=== PATIENT | male | born 1955 | race American Indian/Alaskan Native ===

== ENCOUNTER 2017-03-30 20:18 | Inpatient (IN) | payer MEDICARE, OTHER ==
[~2017-03-30] VITALS: Ht 175.3 cm; Wt 132.0 kg
[~2017-03-30 20:18] MED LIST: ALLOPURINOL100 MG PO; ASPIRIN EC81 MG PO; CRESTOR10 MG PO; CRESTOR20 MG PO; CYCLOBENZAPRINE10 MG PO; DOXAZOSIN MESYLA1 MG PO; FENOFIBRATE160 MG PO; FINASTERIDE5 MG PO; FLUTICASONE PRO16 GM NS; FORTESTA60 GM TOP; GLIPIZIDE XL10 MG PO; GLIPIZIDE5 MG PO; GLUCOPHAGE1000 MG PO; JANUMET 50-1,01 EACH PO; JANUVIA100 MG PO; LANTUS SOL100 UNIT/1 SUB-Q; LIPITOR80 MG GT; LOSARTAN POTASS25 MG PO; METOPROLOL SUCC25 MG PO; NORCO 10-325 T1 EACH PO; NORCO 5-325 TA1 EACH PO; OMEGA 3 1,0001 EACH PO; PAROXETINE HCL40 MG PO; TERBINAFINE15 GM TOP; VICTOZA 2-0.6 MG/0.1 SUB-Q; VICTOZA 3-0.6 MG/0.1 SQ
[2017-03-30] MEDS ORDERED: METFORMIN HCL500 M1 PO (21:06)
--- OUTSIDE RECORDS SUMMARY | 2017-03-31 00:27 | XMS | Clinical Summary ---
Demographics + + + | Address | [address] | | | [place] [address] | + + + | Home Phone | | + + + | Preferred Language | Unknown | + + + | Marital Status | | + + + | Mu-Ism Affiliation | NON | + + + | Race | or | + + + | Ethnic Group | Not or | + + + Author + + + | Author | NON REVENUE LOCATIONS | + + + | Organization | NON REVENUE LOCATIONS | + + + | Address | Unknown | + + + | Phone | Unavailable | + + + Support +------+ +---------+ + | Name | Relationship | Address | Phone | +------+ +---------+ + ECON | Unknown | | +------+ +---------+ + Care Team Providers + +------+ + | Care Licensed Certified Orthotist Name | Role | Phone | + +------+ + PP | Unavailable | + +------+ + Source Comments FELIPE is fully live on both [facility] and [facility] Allergies No Known Allergies Current Medications + + +-------+---------+------+------+-------+ | Prescription | Sig. | Disp. | Refills | Star | End | Statu | | | | | | t | Date | s | | | | | | Date | | | + + +-------+---------+------+------+-------+ | TRANDATE 200 MG | 1.5 tabs bid | | | | | Activ | | TAB | | | | | | e | + + +-------+---------+------+------+-------+ | AVAPRO 150 MG TAB | take 1 tablet | | | | | Activ | | | (150mg) by oral | | | | | e | | | route once daily | | | | | | + + +-------+---------+------+------+-------+ | PAXIL 40 MG TAB | take 1 tablet (40mg) | | | | | Activ | | | by oral route once | | | | | e | | | daily | | | | | | + + +-------+---------+------+------+-------+ | CLARITIN 10 MG TAB | take 1 tablet (10mg) | | | | | Activ | | | by oral route once | | | | | e | | | daily | | | | | | + + +-------+---------+------+------+-------+ Active Problems + + + | Problem | Noted Date | + + + | Carpal tunnel syndrome | 12/31/2005 | + + + Social History + +-------+ +--------+------+ | Tobacco Use | Types | Packs/Day | Years | Date | | | | | Used | | + +-------+ +--------+------+ | Never Assessed | | | | | + +-------+ +--------+------+ + + + | Sex Assigned at | Date Recorded | | | | + + + | Not on file | | + + + Last Filed Vital Signs + + + + | Vital Sign | Reading | Time Taken | + + + + | Blood Pressure | 140/88 | 11/08/2005 9:59 AM PDT | + + + + | Pulse | 81 | 11/08/2005 9:59 AM PDT | + + + + | Temperature | - | - | + + + + | Respiratory Rate | 19 | 11/08/2005 9:59 AM PDT | + + + + | Oxygen Saturation | - | - | + + + + | Inhaled Oxygen | - | - | | Concentration | | | + + + + | Weight | 125 kg (275 lb 9.2 | 11/08/2005 9:59 AM PDT | | | oz) | | + + + + | Height | 175.3 cm (5' 9") | 11/08/2005 9:59 AM PDT | + + + + | Body Mass Index | 40.7 | 11/08/2005 9:59 AM PDT | + + + + Plan of Treatment + + + + + | Health Maintenance | Due Date | Last Done | Comments | + + + + + | INFLUENZA VACCINE | | | | | (FLU SHOT) | 7 | | | + + + + + Results Not on filefrom Last 3 Months
--- NOTE | 2017-03-31 21:46 | EKG ---
[facility] [address] [facility] [place] [address] Signed Sinus tachycardia Left axis deviation Pulmonary disease pattern Abnormal ECG No previous ECGs available Confirmed by LUISANA GARCIA MD ([id number]) on 03/31/2017 9:46:41 PM Electronically Signed By: LUISANA GARCIA MD 03/31/17 2146 PATIENT NAME: REGAN ENCARNACION Electrocardiogram DATE OF : 51 PHYSICIAN: LUISANA GARCIA MD REPORT #: [id number] REPORT IS CONFIDENTIAL AND NOT TO BE RELEASED WITHOUT AUTHORIZATION
[2017-04-01] MEDS ORDERED: CEFPODOXIME PR200 MG PO (23:11)
[2017-04-01] MEDS ORDERED: FLUCONAZOLE200 MG PO (23:11)
== END 2017-04-02 11:15 | disposition home or self-care (01) | DRG 872 ==
LOC: ED 20:18 → CCU 23:09 → MS 03-31 11:00
PROVIDERS: ADMIT Internal Medicine
DX: A41.9 Sepsis, unspecified organism (principal); N39.0 Urinary tract infection, site not specified; E87.2 Acidosis; E11.9 Type 2 diabetes mellitus without complications; N40.0 Benign prostatic hyperplasia without lower urinary tract symptoms; E79.0 Hyperuricemia without signs of inflammatory arthritis and tophaceous disease; F39 Unspecified mood [affective] disorder; Z79.82 Long term (current) use of aspirin; Z79.84 Long term (current) use of oral hypoglycemic drugs; E66.9 Obesity, unspecified; Z95.5 Presence of coronary angioplasty implant and graft; Z90.49 Acquired absence of other specified parts of digestive tract
CPT/HCPCS: 36415; 71010; 76770; 80048; 80053; 81001; 83605; 83735; 84100; 85025; 87040; 87077; 87088; 87106; 87186; 87502; 93005; 93010; 96361; 96374; 99285; J0696; J1650; J3475; J3480; J7030

== ENCOUNTER 2018-05-22 16:57 | Emergency (ER) | payer OTHER ==
[~2018-05-22] VITALS: Ht 175.3 cm; Wt 132.0 kg
[~2018-05-22 16:57] MED LIST changes: +CEFPODOXIME PR200 MG PO; +FLUCONAZOLE200 MG PO; +METFORMIN HCL500 M1 PO
[2018-05-22] MEDS ORDERED: CRESTOR20 MG PO (17:10)
[2018-05-22] MEDS ORDERED: FLOMAX0.4 MG PO (20:04)
[2018-05-22] MEDS ORDERED: NORCO 5-325 TA1 EACH PO (20:04)
[2018-05-22] MEDS ORDERED: ONDANSETRON ODT8 MG PO (20:04)
== END 2018-05-22 20:24 | disposition home or self-care (01) ==
LOC: ED 16:57
DX: N13.2 Hydronephrosis with renal and ureteral calculous obstruction (principal); E11.9 Type 2 diabetes mellitus without complications; E66.9 Obesity, unspecified; I10 Essential (primary) hypertension; F32.9 Major depressive disorder, single episode, unspecified; Z85.038 Personal history of other malignant neoplasm of large intestine; Z91.038 Other insect allergy status; Z79.4 Long term (current) use of insulin; Z79.82 Long term (current) use of aspirin; Z79.899 Other long term (current) drug therapy
CPT/HCPCS: 74177; 80053; 81001; 83690; 85025; 96361; 96374; 96375; 99284-25; J1170; J1885; J2405; J7030; Q9967

== ENCOUNTER 2018-05-27 14:55 | Day surgery (SDC) | payer OTHER ==
[~2018-05-27] VITALS: Ht 175.3 cm; Wt 133.4 kg
[~2018-05-27 14:55] MED LIST changes: +FLOMAX0.4 MG PO; +ONDANSETRON ODT8 MG PO
--- NOTE | 2018-05-27 19:49 | NUR ---
05/27/181948 Radha Garvin 1924: PT ARRIVES TO THE PACU MOANING AND FLAILING HIS ARMS AND LEGS. HE DOES NOT STAY STILL LONG ENOUGH TO GET A BP. HE KEEPS MOTIONING TO HIS STOMACH/CHEST AREA, NOT ABLE TO COMMUNICATE TO NURSING STAFF OR CHRIS PRESCOTT WHAT IS WRONG. PT IS ABLE TO BARELY MUTTER THAT HE IS NAUSEOUS AND DIZZY. HE IS GIVEN 12.5MG OF PHENEGRAN BY GEOFFREY CADENA. CHRIS PRESCOTT ASKS FOR 2 DUONEBS TO BE GIVEN WELL. PT'S BLOOD SUGAR IS 158 POST OP. HAY 1937: CHRIS PRESCOTT OBTAINS A MANUAL BP, BECAUSE PT IS STILL FLAILING HIS ARMS AND LEGS AND WON'T STAY STILL LONG ENOUGH FOR THE MONITOR TO TAKE HIS BP. HE IS STARTED ON DUONEBS. HAY 1944: PT IS STARTING TO C/O HIS FEET HURTING. HE IS STILL FLAILING HIS ARMS AND LEGS OCCASIONALLY. PT'S HEART RATE HAS REMAINED TACHY SINCE ENTERING PACU IN THE 120'S-130'S.
--- NOTE | 2018-05-27 20:55 | NUR ---
PATIENT ARRIVED FROM PACU. REPORT GIVEN BY SURINDER HARVEY FROM PACU. PATIENT TALKING AND ORIENTED AND TAKING ICE CHIPS. FAHAD AT BEDSIDE.
--- NOTE | 2018-05-27 21:33 | NUR ---
PATIENT ON 2 L/NC A+0. TOLERATING ICE CHIPS AND JELLO WITH NO DIFFICULTIES AND NO NAUSEA. SOME BURNING WITH URINATION AND IT IS REDDISH EXPECTED. FAHAD IS AT BEDSIDE.
--- NOTE | 2018-05-27 22:52 | NUR ---
VITALS COMPLETED, ASSISTED PT UP TO BATHROOM, PAINFUL URINATION, WHICH WAS TO BE EXPECTED. ATE SANDWICH, DRANK WATER HAS VOIDED X 2. PLAN TO DC HOME
--- NOTE | 2018-05-27 23:23 | EKG ---
[facility] [address] [facility] [place] [address] Signed Sinus tachycardia Otherwise normal ECG No previous ECGs available Confirmed by LUISANA GARCIA MD ([id number]) on 05/27/2018 11:23:20 PM Electronically Signed By: LUISANA GARCIA MD 05/27/18 2323 PATIENT NAME: REGAN ENCARNACION Electrocardiogram DATE OF : 51 PHYSICIAN: LUISANA GARCIA MD REPORT #: [id number] REPORT IS CONFIDENTIAL AND NOT TO BE RELEASED WITHOUT AUTHORIZATION
--- NOTE | 2018-06-02 09:02 | OR ---
[facility] [address] [place], [place] [address] Signed DATE OF OPERATION: 05/27/2018 SURGEON: Mckay Sarmiento MD PREOPERATIVE DIAGNOSES: 1. Multiple obstructing right ureteral calculi with associated obstruction. 2. A 12-mm indeterminate right adrenal mass. POSTOPERATIVE DIAGNOSES: 1. Multiple obstructing right ureteral calculi with associated obstruction. 2. A 12-mm indeterminate right adrenal mass. PROCEDURES PERFORMED: 1. Diagnostic cystoscopy with right retrograde pyelogram. 2. Semi-rigid distal ureteroscopy with ureteral stone extraction. 3. Flexible nephroscopy with laser lithotripsy and basket extraction of stones. 4. Insertion of indwelling right ureteral stent. ANESTHESIA: General. ESTIMATED BLOOD LOSS: Minimal. COMPLICATIONS: None. SPECIMENS: Multiple fragments of right ureteral calculi sent to the lab for stone analysis. DRAINS: A 6 x 26 cm indwelling contour double-J ureteral stent placed into the right ureter. INDICATIONS FOR PROCEDURE: Mr. Encarnacion is a very pleasant 63-year-old gentleman with no previous history of nephrolithiasis, who presented to my clinic yesterday for consultation after being seen in [facility] Department around four days prior. He had presented with 1-week history of progressively worsening right flank pain along with nausea. He denied any fevers, chills, or vomiting. He underwent a CT scan in the emergency department, which revealed a collection of stones located at the right ureterovesical Electronically Signed By: MCKAY SARMIENTO MD 06/02/18 0902 PATIENT NAME: REGAN ENCARNACION OPERATIVE REPORT DATE OF : 51 REPORT #: [id number] PHYSICIAN: MCKAY SARMIENTO MD PCP: BRANDON RUSSELL REPORT IS CONFIDENTIAL AND NOT TO BE RELEASED WITHOUT AUTHORIZATION [facility] [address] [place], [place] [address] Signed junction, the largest of the two stones measured [address] scan also revealed a 10 mm right ureteropelvic junction calculus, also obstructing in nature. The patient was sent home from the emergency department with pain control and daily Flomax. He presented to my clinic yesterday requesting surgical extraction. Of note, his CT scan at that time also revealed a 12-mm indeterminate adrenal lesion on the right adrenal gland. Given his history of colon cancer, he will likely require additional imaging in approximately six months or so. OPERATIVE FINDINGS: 1. On cystoscopy, there was no evidence of any suspicious masses, lesions, or stones. Bilateral ureteral orifices are in their normal anatomic location. There is a fragment of stone that appears to be from the right ureteral orifice. 2. Right retrograde pyelogram was performed, which revealed an approximately 4 mm stone present in the distal right ureter. This stone was extracted in toto using a Zero Tip basket using a semi-rigid ureteroscopy. 3. Right retrograde pyelogram revealed mild blunting of the calices; however, there was no obvious filling defect indicative of the known 10-mm stone in the right renal pelvis. 4. Flexible nephroscopy was performed, which did reveal the presence of a 10 mm stone in the right renal pelvis near the upper pole. The stone was fragmented using a 270 micron fiber and the holmium laser. These fragments were then extracted using a Zero Tip basket without difficulty from the renal pelvis and out into a specimen cup. 97% of the stone burden was successfully extracted. 5. A 6 x 26 cm double-J ureteral stent was inserted into the right ureter under direct visualization at the end of the procedure. DESCRIPTION OF PROCEDURE: After informed consent was obtained, the patient was taken back to the operating room. He was transferred from the [facility] to the operating room table, where general anesthesia was induced. He was placed in the dorsal lithotomy position and his genitalia prepped and draped in standard sterile fashion. The penis was somewhat phimotic, so his foreskin was retracted behind the glans penis. Using a 30-degree lens on a 22.5-Turkmen introducer, rigid cystoscope was inserted through his urethra into his bladder under direct visualization. Panendoscopic views of the bladder were then obtained. Please see above findings. Attention was turned to the right ureteral orifice. A cone-tipped catheter was advanced to the right ureteral orifice and a right retrograde pyelogram was performed. Please see above findings. There was a 4-mm stone seen in the distal ureter on fluoroscopy. A semi-rigid ureteroscope was advanced into the distal ureter and the 4-mm stone was identified. It was removed in toto using a Zero Tip basket and placed in a specimen cup to be evaluated for stone analysis. A Sensor wire was then inserted through the semi-rigid scope and up into the right ureter into the right renal pelvis. Adequate placement of the wire was confirmed on fluoroscopy. Over the wire, a 13/15 ureteral access sheath was placed into appropriate position. A retrograde pyelogram was Electronically Signed By: MCKAY SARMIENTO MD 06/02/18 0902 PATIENT NAME: REGAN ENCARNACION OPERATIVE REPORT DATE OF : 51 REPORT #: [id number] PHYSICIAN: MCKAY SARMIENTO MD PCP: BRANDON RUSSELL REPORT IS CONFIDENTIAL AND NOT TO BE RELEASED WITHOUT AUTHORIZATION [facility] [address] [place], [place] [address] Signed performed to confirm adequate placement of the sheath. I then advanced a flexible ureteroscope through the sheath and into the proximal ureter and right kidney. I performed a diagnostic nephroscopy and did locate the 10 mm stone. The stone was then fragmented at 8 and 0.8 settings using a 270 micron fiber with the holmium laser. The stone fragmented with moderate difficulty, suggesting that it could be a calcium oxalate monohydrate stone. Once the stone was adequately fragmented, it was removed piece by piece using a Zero Tip basket. Approximately 97% of the stone burden was successfully extracted. Once I was satisfied that majority the stone burden had been removed, the flexible ureteroscope was removed. I then inserted a 0.035 Sensor wire through the sheath and into the right renal pelvis and confirmed placement on fluoroscopy. The sheath was then removed fully intact. Over the wire, a 6 x 26 cm contour double-J ureteral stent was inserted into the right ureter under direct vision without difficulty. The wire was pulled and adequate proximal coil was seen within the right renal pelvis along with an adequate distal coil within the bladder. The patient's bladder was then drained and the cystoscope was removed. The patient's foreskin was then protracted over the glans penis to prevent paraphimosis. The procedure was then terminated. The patient tolerated the procedure well without any complication. He will now be transferred to the postanesthesia care unit in stable condition. DISPOSITION: I discussed the details of today's surgery with the patient's and answered all of her questions. I informed her that all of the stone burden has been successfully removed and that she may contact our clinic tomorrow to schedule an appointment this coming , for him to undergo cystoscopy with right ureteral stent extraction. The patient will be discharged to home later this evening once he fully awakes from general anesthetic and his pain is under adequate control. He will be sent home with [place] 7.5/325 dispense #30 as needed for pain along with Augmentin 875 mg p.o. b.i.d. for a total of 7 days. He will see me in a couple of days to undergo cystoscopy with definitive ureteral stent extraction. Mckay Sarmiento MD AR/MODL /[id number] Electronically Signed By: MCKAY SARMIENTO MD 06/02/18 0902 PATIENT NAME: REGAN ENCARNACION OPERATIVE REPORT DATE OF : 51 REPORT #: [id number] PHYSICIAN: MCKAY SARMIENTO MD PCP: BRANDON RUSSELL REPORT IS CONFIDENTIAL AND NOT TO BE RELEASED WITHOUT AUTHORIZATION [facility] [address] [place] [address] [place], [place] [address] Signed Copies: ~ Electronically Signed By: MCKAY SARMIENTO MD 06/02/18 09 PATIENT NAME: REGAN ENCARNACION OPERATIVE REPORT DATE OF : 51 REPORT #: [id number] PHYSICIAN: MCKAY SARMIENTO MD PCP: BRANDON RUSSELL REPORT IS CONFIDENTIAL AND NOT TO BE RELEASED WITHOUT AUTHORIZATION
== END 2018-05-27 23:12 | disposition home or self-care (01) ==
LOC: OPS 14:55 → DS 14:55 → OPS 17:00 → DS 17:00 → OPS 23:12
PROVIDERS: Urology
PROC: 0T768DZ Dilation of Right Ureter with Intraluminal Device, Via Natural or Artificial Opening Endoscopic (ICD-10-PCS; 2018-05-27)
PROC: BT1DYZZ Fluoroscopy of Right Kidney, Ureter and Bladder using Other Contrast (ICD-10-PCS; 2018-05-27)
PROC: 0TC08ZZ Extirpation of Matter from Right Kidney, Via Natural or Artificial Opening Endoscopic (ICD-10-PCS; principal; 2018-05-27 17:00)
PROC: 0TC68ZZ Extirpation of Matter from Right Ureter, Via Natural or Artificial Opening Endoscopic (ICD-10-PCS; 2018-05-27 17:00)
DX: N20.2 Calculus of kidney with calculus of ureter (principal); E27.8 Other specified disorders of adrenal gland; E11.9 Type 2 diabetes mellitus without complications; I25.10 Atherosclerotic heart disease of native coronary artery without angina pectoris; Z95.5 Presence of coronary angioplasty implant and graft; Z79.82 Long term (current) use of aspirin; Z79.899 Other long term (current) drug therapy; Z79.4 Long term (current) use of insulin
CPT/HCPCS: 00918; 76000; 82365; 93005; 93010; C2617; J0330; J0696; J2250; J2405; J2550; J2704; J2765; J3010; J7120

== ENCOUNTER 2019-05-02 20:19 | Emergency (ER) | payer MEDICARE, OTHER ==
[~2019-05-02] VITALS: Ht 175.3 cm; Wt 133.4 kg
--- OUTSIDE RECORDS SUMMARY | ~2019-05-02 | XMS | Encounter Summary ---
Demographics + + + | Address | [address] | | | [place] [address] | + + + | Home Phone | | + + + | Preferred Language | Unknown | + + + | Marital Status | | + + + | Mandaeism Affiliation | 1041 | + + + | Race | Unknown | + + + | Ethnic Group | Unknown | + + + Author + + + | Author | [facility] | | | and [place] | + + + | Organization | [facility] | | | and [place] | + + + | Address | Unknown | + + + | Phone | Unavailable | + + + Support + + + + + | Name | Relationship | Address | Phone | + + + + + | Shlomo Holliday | ECON | [address] | | | | | [place] | | | | | [address] | | + + + + + Care Team Providers + +------+ + | Care Charge Coordinator Name | Role | Phone | + +------+ + PCP | Unavailable | + +------+ + Encounter Details +--------+ + + + + | Date | Type | Department | Care Team | Description | +--------+ + + + + | 01/04/ | Hospital | [facility] | Ryan Hodges, | | | 2006 | Encounter | [facility] | MD [address], | | | | | CENTER [address] | [facility] [address], | | | | | [place] | [place] [address] | | | | | [address] | [phone] | | | | | [phone] | | | +--------+ + + + + Social History + +-------+ [...] on file | | + + + + + + + | Job Start Date | Occupation | Industry | + + + + | Not on file | Not on file | Not on file | + + + + + + + + | Travel History | Travel Start | Travel End | + + + + + + | No recent travel history available. | + + documented as of this encounter Plan of Treatment Not on filedocumented as of this encounter Visit Diagnoses Not on filedocumented in this encounter"
--- OUTSIDE RECORDS SUMMARY | ~2019-05-02 | XMS | Encounter Summary ---
Demographics + + + | Address | [address] | | | [place] [address] | + + + | Home Phone | | + + + | Preferred Language | Unknown | + + + | Marital Status | | + + + | Jehovah'S Witness Affiliation | NON | + + + | Race | or | + + + | Ethnic Group | Not or | + + + Author + + + | Author | [facility] | + + + | Organization | [facility] | + + + | Address | Unknown | + + + | Phone | Unavailable | + + + Support + + +---------+ + | Name | Relationship | Address | Phone | + + +---------+ + | Shlomo Holliday | ECON | Unknown | | + + +---------+ + Care Team Providers + +------+ + | Care Optomechanical Technician Name | Role | Phone | + +------+ + PCP | Unavailable | + +------+ + Encounter Details +--------+ + + + + | Date | Type | Department | Care Team | Description | +--------+ + + + + | 11/06/ | ED | [facility] | Report, Emergency | ED Consult | | 2005 | Consult-Tra | MEDICINE | Services | | | | nscribed | | | | +--------+ + + + [...]
--- OUTSIDE RECORDS SUMMARY | ~2019-05-02 | XMS | Encounter Summary ---
Demographics + + + | Address | [address] | | | [place] [address] | + + + | Home Phone | | + + + | Preferred Language | Unknown | + + + | Marital Status | | + + + | Confucianist Affiliation | 1041 | + + + | Race | Unknown | + + + | Ethnic Group | Unknown | + + + Author + + + | Author | [facility] | | | and [place] | + + + | Organization | [facility] | | | and [place] | + + + | Address | Unknown | + + + | Phone | Unavailable | + + + Support + + + + + | Name | Relationship | Address | Phone | + + + + + | Shlomo Holliday | ECON | [address] | | | | | [place] | | | | | [address] | | + + + + + Care Team Providers + +------+ + | [facility] Name | Role | Phone | + +------+ + | Manjit Patterson PCP | | + +------+ + Encounter Details +--------+ + + + + | Date | Type | Department | Care Team | Description | +--------+ + + + + | 12/30/ | Anesthesia | [facility] | Capo Salgado DO | | | 2019 | Event | [facility] | [address] | | | | | [address] | [place] [address] | | | | | [address] | [phone] | | | | | [place], [place] | | | | | | [address] | | | | | | [phone] | | | +--------+ + + + + Anesthesia Record + + + + + | Procedure Name | Responsible | Anesthesia Start | Anesthesia Stop Time | | | Anesthesiologist | Time | | + + + + + | RELEASE CARPAL | Capo Salgado DO | 12/30/18733 | 12/30/18829 | | TUNNEL (Right Wrist) | | | | + + + + + +----+---+ + + | Da | T | Event | Comment | | te | i | | | | | m | | | | | e | | | +----+---+ + + | 08 | 0 | An Checkout | Pre-use anesthesia machine/equipment checkout. | | /2 | 7 | | | | 7/ | 3 | | | | 20 | 4 | | | | 19 | | | | +----+---+ + + | | 0 | An Start | Reassessment prior to anesthesia induction/procedure. | | | 7 | | | | | 3 | | | | | 4 | | | +----+---+ + + | | 0 | Antibiotic | | | | 7 | Given | | | | 3 | | | | | 5 | | | +----+---+ + + | | 0 | An Tourn | Right arm 250 mmHg | | | 7 | Inflated | | | | 4 | | | | | 4 | | | +----+---+ + + | | 0 | Quick Note | Incision 0746 | | | 7 | | | | | 4 | | | | | 6 | | | +----+---+ + + | | 0 | | | | | 8 | | | | | 0 | | | | | 9 | | | +----+---+ + + | | 0 | An Tourn | TT = 40 min | | | 8 | Deflated | | | | 2 | | | | | 4 | | | +----+---+ + + | | 0 | Quick Note | Surgery stop | | | 8 | | | | | 2 | | | | | 6 | | | +----+---+ + + | | 0 | An Stop | Patient handed off to recovery nurse. | | | 3 | | | | | 0 | | | +----+---+ + + +------+ | Meds | +------+ + +--------+ | Name | Total | + +--------+ | ceFAZolin in dextrose (ANCEF) | 2 g | | IVPB 2 g | | + +--------+ | propofol | 330 mg | + +--------+ | mepivacaine (PF) (POLOCAINE) 2% | 15 mL | | Perineural | | + +--------+ | bupivacaine (PF) (MARCAINE) 0.5% | 30 mL | | Perineural | | + +--------+ | midazolam (VERSED) 1 mg/mL IV | 2 mg | + +--------+ | lactated ringers (LR) infusion | 100 mL | + +--------+ + + | Name | + + | O2 Flow Rate (L/Min) | + + | Insp O2 | + + | Exp N2O | + + + + | No blood administrations on file. | + + +--------+ + + + | Type | Details | Placement | Removal | +--------+ + + + | Wound | 12/30/18; 750; Incision; Right; | 12/30/18750 by | | | | hand | Patricia Marshall, | | | | | RN | | +--------+ + + + | Periph | 12/30/18; 0659; Left; Hand; | 12/30/18 0659 by | 12/30/18 0846 by | | emily | [id number] catheter system; | Allison Mccann, | Olimpia Beltran, | | IV | 20 gauge; intradermal injection; | RN | RN | | | removed per policy/procedure, | | | | | catheter/device intact; S. | | | | | Siobhan; 12/30/18; 0846 | | | +--------+ + + + documented in this encounter Social History + +-------+ +--------+------+ | Tobacco Use | Types | Packs/Day | Years | Date | | | | | Used | | + +-------+ +--------+------+ | Never Smoker | | | | | + +-------+ +--------+------+ + +---+---+---+ | Smokeless Tobacco: | | | | | Never Used | | | | + +---+---+---+ + + +---------+ + | Alcohol Use | Drinks/Week | oz/Week | Comments | + + +---------+ + | Yes | | | 5 DRINKS PER MONTH | + + +---------+ + + + + | Sex Assigned at [...] Not on filedocumented as of this encounter Procedures + +--------+ + + + | Procedure Name | Priori | Date/Time | Associated Diagnosis | Comments | | | ty | | | | + +--------+ + + + | ANE NERVE BLOCK | Routin | 12/30/2018 | | Results for this | | CATHETER NOTE | e | 7:51 AM | | procedure are in the | | | | PDT | | results section. | + +--------+ + + + documented in this encounter Results Nerve Block (12/30/2018 7:51 AM PDT) + + + | Narrative | Performed At | + + + | Capo Salgado DO 12/30/2018 7:56 Perineural Procedure Note | | | 12/30/2018 7:21 Nerve block: axillary-brachial plexus Laterality: | | | right Continuous block with catheter: No Provider requested | | | procedure: Dr. Hale Indication: surgical anesthesia, postoperative | | | analgesia and acute pain management Preprocedure check: patient | | | identified, procedure and rescue equipment checked, preevaluation | | | including airway assessment complete, risks/benefits discussed, | | | timeout performed, consent obtained, reassessment prior to procedure | | | and monitors applied Patient position: supine Preparation: | | | chlorhexidine/isopropyl alcohol, 1% lidocaine infiltration Introducer | | | used: no Local anesthetic infiltration volume in ml: 1 mL | | | Technique: ultrasound Needle: short-bevel Needle size: 22 g Needle | | | length: 2 in Medication administered through: needle and incremental | | | injection Negative findings: no blood aspirated and no paresthesia | | | Total volume of local anesthetic solution administered: 60 mL | | | Attempts: 1 Ease of procedure: easy LDA Securement: 4x4 gauze. | | | Comments: Ultrasound used for Axillary brachial plexus localization | | | and needle visualization for local anesthetic placement. Picture | | | taken and stored in patient's electronic health record. Patient | | | complains of right hand pain. Right Axillary brachial plexus block | | | performed after Chloraprep and 1% lidocaine 5 mg skin wheal. Supine | | | position, positive axillary artery, positive brachial plexus, | | | mixture of 1% Mepivacaine 30 ml/0.5% Bupivacaine 30 ml used. 60 ml | | | of solution given in 1-5 ml increments. Good local anesthetic | | | spread, anticipate satisfactory block. Patient tolerated procedure | | | well. Versed 2 mg given for anxiolysis. @ bedside. | | | Medications Administered Midazolam (VERSED) 1 mg/mL IV, 2 mg | | | bupivacaine (PF) (MARCAINE) 0.5% Perineural, 30 mL mepivacaine (PF) | | | (POLOCAINE) 2% Perineural, 15 mL Date/Time: 12/30/2018 7:26 | | | Please see anesthesia record or flowsheet for vital sign documentation | | | and see anesthesia record or MAR for additional medication | | | documentation. Performing provider: Capo Salgado DO Cabin Man: | | | SURINDER Cooper | | + + + + + | Procedure Note | + + | Capo Salgado DO - 12/30/2018 7:51 AM PDT Perineural Procedure Note12/30/2018 | | 7:21Nerve block: axillary-brachial plexusLaterality: rightContinuous block with | | catheter: NoProvider requested procedure: Dr. Mcdication: surgical anesthesia, | | postoperative analgesia and acute pain managementPreprocedure check: patient identified, | | procedure and rescue equipment checked, preevaluation including airway assessment | | complete, risks/benefits discussed, timeout performed, consent obtained, reassessment | | prior to procedure and monitors appliedPatient position: supinePreparation: | | chlorhexidine/isopropyl alcohol, 1% lidocaine infiltrationIntroducer used: noLocal | | anesthetic infiltration volume in ml: 1 mLTechnique: ultrasoundNeedle: short-bevelNeedle | | size: 22 gNeedle length: 2 inMedication administered through: needle and incremental | | injectionNegative findings: no blood aspirated and no paresthesiaTotal volume of local | | anesthetic solution administered: 60 mLAttempts: 1Ease of procedure: easyLDA Securement: | | 4x4 gauze.Comments: Ultrasound used for Axillary brachial plexus localization and | | needle visualization for local anesthetic placement. Picture taken and stored in | | patient's electronic health record.Patient complains of right hand pain. Right Axillary | | brachial plexus block performed after Chloraprep and 1% lidocaine 5 mg skin wheal. | | Supine position, positive axillary artery, positive brachial plexus, mixture of 1% | | Mepivacaine 30 ml/0.5% Bupivacaine 30 ml used. 60 ml of solution given in 1-5 ml | | increments. Good local anesthetic spread, anticipate satisfactory block. Patient | | tolerated procedure well. Versed 2 mg given for anxiolysis. @ bedside.Medications | | AdministeredMidazolam (VERSED) 1 mg/mL IV, 2 mgbupivacaine (PF) (MARCAINE) 0.5% | | Perineural, 30 mLmepivacaine (PF) (POLOCAINE) 2% Perineural, 15 mLDate/Time: 12/30/2018 | | 7:26Please see anesthesia record or flowsheet for vital sign documentation and see | | anesthesia record or MAR for additional medication documentation.Performing provider: | | Capo Salgado, Assistant: SURINDER Cooper | | | |Patient complains of right hand pain. Right Axillary brachial plexus block performed after Chloraprep and 1% lidocaine 5 mg skin wheal. Supine position, positive axillary artery, po sitive brachial plexus, mixture of | |1% Mepivacaine 30 ml/0.5% Bupivacaine 30 ml used. 60 ml of solution given in 1-5 ml increm ents. Good local anesthetic spread, anticipate satisfactory block. Patient tolerated proce dure well. Versed 2 mg given for anxiolysis. @ bedside. | | | | | |Medications Administered | |Midazolam (VERSED) 1 mg/mL IV, 2 mg | |bupivacaine (PF) (MARCAINE) 0.5% Perineural, 30 mL | |mepivacaine (PF) (POLOCAINE) 2% Perineural, 15 mL | |Date/Time: 12/30/2018 7:26 | | | | | |Please see anesthesia record or flowsheet for vital sign documentation and see anesthesia r ecord or MAR for additional medication documentation. | | | | | |Performing provider: Capo Salgado DO | |[place]abin Man: SURINDER Cooper | + + documented in this encounter Visit Diagnoses Not on filedocumented in this encounter Administered Medications + +--------+ +--------+------+------+ | Medication Order | MAR | Action | Dose | Rate | Site | | | Action | Date | | | | + +--------+ +--------+------+------+ | bupivacaine (PF) (MARCAINE) | Given | 12/30/ | 30 mLs | | | | 0.5% injection PERINEURAL, | | 19 7:26 | | | | | Starting 12/30/18 at 0726, | | AM PDT | | | | | Anesthesia Intra-op | | | | | | + +--------+ +--------+------+------+ +---+---+ | | | +---+---+ + +-------+ +-----+---+---+ | ceFAZolin in dextrose (ANCEF) | Given | 12/31/19 | 2 g | | | | IVPB 2 g 2 g, Intravenous, | | 19 7:35 | | | | | Administer over 30 Minutes, ONCE, | | AM PDT | | | | | 12/30/18 at 0700, For 1 dose, | | | | | | | Keep in refrigerator., Pre-op, | | | | | | | Indications: Surgical Prophylaxis | | | | | | + +-------+ +-----+---+---+ +---+---+ | | | +---+---+ + +---------+ +---+---+---+ | lactated ringers (LR) infusion | New Bag | 08/27/20 | | | | | at 30 mL/hr, Intravenous, | | 19 6:59 | | | | | CONTINUOUS, Starting Sat12/30/18 | | AM PDT | | | | | at 0700, TKO., Pre-op | | | | | | + +---------+ +---+---+---+ +---+---+ | | | +---+---+ + +-------+ +--------+---+---+ | mepivacaine (PF) (POLOCAINE) 2% | Given | 12/31/19 | 15 mLs | | | | injection PERINEURAL, Starting | | 19 7:26 | | | | | Sat12/30/18 at 0726, Anesthesia | | AM PDT | | | | | Intra-op | | | | | | + +-------+ +--------+---+---+ +---+---+ | | | +---+---+ + +-------+ +------+---+---+ | midazolam (VERSED) injection | Given | 12/31/19 | 2 mg | | | | Intravenous, Starting Sat12/30/18 | | 19 7:26 | | | | | at 0726, Anesthesia Intra-op | | AM PDT | | | | + +-------+ +------+---+---+ +---+---+ | | | +---+---+ + +-------+ +-------+---+---+ | propofol (DIPRIVAN) injection | Given | 12/31/19 | 30 mg | | | | Intravenous, PRN, Starting Tue | | 19 8:21 | | | | | 12/30/18 at 0740, Anesthesia | | AM PDT | | | | | Intra-op | | | | | | + +-------+ +-------+---+---+ +-------+ +-------+---+---+ | Given | 12/31/19 | 30 mg | | | | | 19 8:18 | | | | | | AM PDT | | | | +-------+ +-------+---+---+ | Given | 12/31/19 | 30 mg | | | | | 19 8:15 | | | | | | AM PDT | | | | +-------+ +-------+---+---+ +---+---+ | | | +---+---+ documented in this encounter"
--- OUTSIDE RECORDS SUMMARY | ~2019-05-02 | XMS | Encounter Summary ---
Demographics + + + | Address | [address] | | | [place] [address] | + + + | Home Phone | | + + + | Preferred Language | Unknown | + + + | Marital Status | | + + + | Congregational Affiliation | [id number] | + + + | Race | Unknown | + + + | Ethnic Group | Unknown | + + + Author + + + | Author | [facility] | | | and [place] | + + + | Organization | [facility] | | | and [place] | + + + | Address | Unknown | + + + | Phone | Unavailable | + + + Support + + + + + | Name | Relationship | Address | Phone | + + + + + | Shlomo Holliday | ECON | [address] | | | | | [place] | | | | | [address] | | + + + + + Care Team Providers + +------+ + | Care Paving Plant Operator Name | Role | Phone | + +------+ + | Manjit Patterson PCP | | + +------+ + Encounter Details +--------+ + + + + | Date | Type | Department | Care Team | Description | +--------+ + + + + | 10/28/ | Orders Only | [facility] | Adele Rodriguez DO | | | 2019 | | CONVERSION [address] | [address] | | | | | [place] | [place], [place] | | | | | [place], [place] | [address] | | | | | [address] | | | | | | [phone] | | | +--------+ + + + [...] | + +--------+ + + + | ECHO INTERPRETATION | Routin | 10/28/2018 | | Results for this | | OF OUTSIDE FILMS | e | 1:18 PM | | procedure are in the | | | | PDT | | results section. | + +--------+ + + + documented in this encounter Results ECHO Interpretation of Outside Films (10/28/2018 1:18 PM PDT) + + | Specimen | + + | | + + + + + | Impressions | Performed At | + + + | 1. This was a technically difficult study with suboptimal views. 2. | | | Overall left ventricular systolic function is mildly impaired with, | | | an EF between 45 - 50 %. 3. There is mild concentric left ventricular | | | hypertrophy. 4. There is mild global hypokinesis of LV | | | contractility. 5. The right ventricle is normal in size and function. | | + + + + + + | Narrative | Performed At | + + + | Patient Name: Marshall Holliday Date of : 1955 | | | Performing Physician: Adele Rodriguez MD | | | | | | INDICATIONS Angina CONCLUSIONS 1. This | | | was a technically difficult study with suboptimal views. 2. Overall | | | left ventricular systolic function is mildly impaired with, an EF | | | between 45 - 50 %. 3. There is mild concentric left ventricular | | | hypertrophy. 4. There is mild global hypokinesis of LV contractility. | | | 5. The right ventricle is normal in size and function. FINDINGS | | | -------- ECG rhythm: Sinus rhythm. ECG rhythm: Resting tachycardia | | | (HR>100bpm). Study: A 2-dimensional transthoracic echocardiogram with | | | m-mode, spectral and color flow Doppler was perfomed. Study: This | | | was a technically difficult study with suboptimal views. Left | | | Ventricle: Overall left ventricular systolic function is mildly | | | impaired with, an EF between 45 - 50 %. Left Ventricle: The left | | | ventricle cavity size is normal. Left Ventricle: There is mild | | | concentric left ventricular hypertrophy. Left Ventricle: There is | | | mild global hypokinesis of LV contractility. Left Ventricle: The | | | diastolic filling pattern indicates impaired relaxation consistent | | | with mild dysfunction (Grade I). Right Ventricle: The right ventricle | | | is normal in size and function. Left Atrium: The left atrium is | | | normal in size. Right Atrium: The right atrium is normal in size. | | | Aortic Valve: The aortic valve appears to be trileaflet. Aortic | | | Valve: There is no evidence of aortic regurgitation. Aortic Valve: | | | There is no evidence of aortic stenosis. Mitral Valve: The mitral | | | valve is normal. Mitral Valve: No mitral regurgitation. Tricuspid | | | Valve: The tricuspid valve appears structurally normal. Tricuspid | | | Valve: Pulmonary artery systolic pressure could not be assessed due to | | | the absence of adequate TR jet. Pulmonic Valve: The pulmonic valve | | | was not well visualized. Pericardium: There is no pericardial | | | effusion. IVC/Hepatic Veins: The IVC is normal size (1.5-2.5cm) and | | | collapses >50% with sniff, consistent with central venous pressures of | | | 5-10mmHg. 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 Mass: No mass visualized Thrombus: No clot | | | visualized Thrombus: No vegetation visualized. Septum: No ASD | | | observed. Septum: No VSD observed. MEASUREMENTS | | | Ao asc: 3.93 cm Ao Diam: 3.90 cm Ao sinus: 3.[address] | | | junct: 3.68 cm IVC: 2.27 cm LA Major: 4.80 cm EDV(Teich): | | | 92.01 ml IVSd: 1.00 cm LVIDd: 4.49 cm LVPWd: 1.08 cm | | | LVOT Diam: 2.21 cm %FS: 10.09 % EF(Teich): 22.21 % | | | ESV(Teich): 71.58 ml LVIDs: 4.03 cm SV(Teich): 20.43 ml RA | | | Major: 4.67 cm RV Major: 7.51 cm RV Minor: 3.23 cm RV | | | Minor: 2.84 cm LVEF MOD A2C: 44.63 % SV MOD A2C: 44.79 ml | | | LVEF MOD A4C: 44.84 % SV MOD A4C: 39.92 ml EF Biplane: | | | 44.78 % LVEDV MOD BP: 97.44 ml LVESV MOD BP: 53.80 ml LVEDV | | | MOD A2C: 100.37 ml LVLd A2C: 8.90 cm LVEDV MOD A4C: 89.02 | | | ml LVLd A4C: 8.36 cm LVESV MOD A2C: 55.57 ml LVLs A2C: | | | 8.01 cm LVESV MOD A4C: 49.10 ml LVLs A4C: 7.47 cm LAESV(A-L): | | | 45.96 ml LAESV Index (A-L): 19.23 ml/m2 LAAs A2C: 16.32 | | | cm2 LAESV A-L A2C: 43.15 ml LAESV MOD A2C: 41.52 ml LALs A2C: | | | 5.24 cm LAAs A4C: 17.38 cm2 LAESV A-L A4C: 48.45 ml LAESV | | | MOD A4C: 47.92 ml LALs A4C: 5.29 cm RAAs: 11.25 cm2 RAESV | | | A-L: 21.29 ml RAESV MOD: 21.66 ml RALs: 5.04 cm TAPSE: | | | 1.55 cm AV Env.Ti: 231.76 ms AV maxP.86 mmHg AV meanPG: | | | 4.51 mmHg AV Vmax: 1.30 m/s AV Vmean: 1.02 m/s AV VTI: | | | 23.82 cm EVANGELIST Vmax: 2.22 cm2 EVANGELIST (VTI): 2.17 cm2 AVAI Vmax: | | | 0.00 cm2/m2 AVAI (VTI): 0.00 cm2/m2 LVOT Env.Ti: 271.33 ms | | | LVOT maxP.28 mmHg LVOT meanP.22 mmHg LVSI Dopp: | | | 21.72 ml/m2 LVSV Dopp: 51.91 ml LVOT Vmax: 0.75 m/s LVOT | | | Vmean: 0.49 m/s LVOT VTI: 13.49 cm MV A Eliazar: 0.78 m/s MV | | | Dec Webb: 3.02 m/s2 MV DecT: 132.55 ms MV E Eliazar: 0.40 m/s | | | MV E/A Ratio: 0.51 E/E' Sept: 9.77 E' Lat: 0.05 m/s E' | | | Sept: 0.04 m/s RV S': 0.11 m/s Dough Molder: Authenticated | | | by: Adele Rodriguez MD Report Date/Time: -- [id number] | | + + + + -----+ | Procedure Note | + -----+ | Salomon, Rad Conversion - 12/25/2018 12:35 PM PDT Patient Name: Brad Holliday | | : 1955 Performing Physician: Adele Rodriguez | | INDICATIONS A | | ngina CONCLUSIONS 1. This was a technically difficult study with suboptimal | | views.2. Overall left ventricular systolic function is mildly impaired with, an EF | | between 45 - 50 %.3. There is mild concentric left ventricular hypertrophy.4. There is | | mild global hypokinesis of LV contractility.5. The right ventricle is normal in size and | | function. FINDINGS--------ECG rhythm: Sinus rhythm.ECG rhythm: Resting tachycardia | | (HR>100bpm).Study: A 2-dimensional transthoracic echocardiogram with m-mode, spectral | | and color flow Doppler was perfomed.Study: This was a technically difficult study with | | suboptimal views.Left Ventricle: Overall left ventricular systolic function is mildly | | impaired with, an EF between 45 - 50 %.Left Ventricle: The left ventricle cavity size is | | normal.Left Ventricle: There is mild concentric left ventricular hypertrophy.Left | | Ventricle: There is mild global hypokinesis of LV contractility.Left Ventricle: The | | diastolic filling pattern indicates impaired relaxation consistent with mild dysfunction | | (Grade I).Right Ventricle: The right ventricle is normal in size and function.Left | | Atrium: The left atrium is normal in size.Right Atrium: The right atrium is normal in | | size.Aortic Valve: The aortic valve appears to be trileaflet.Aortic Valve: There is no | | evidence of aortic regurgitation.Aortic Valve: There is no evidence of aortic | | stenosis.Mitral Valve: The mitral valve is normal.Mitral Valve: No mitral | | regurgitation.Tricuspid Valve: The tricuspid valve appears structurally normal.Tricuspid | | Valve: Pulmonary artery systolic pressure could not be assessed due to the absence of | | adequate TR jet.Pulmonic Valve: The pulmonic valve was not well visualized.Pericardium: | | There is no pericardial effusion.IVC/Hepatic Veins: The IVC is normal size (1.5-2.5cm) | | and collapses >50% with sniff, consistent with central venous pressures of | | 5-10mmHg.Aorta: The aortic root and ascending aorta are dilated measuring up to 39 | | mm.Mass: No mass visualizedThrombus: No clot visualizedThrombus: No vegetation | | visualized.Septum: No ASD observed.Septum: No VSD observed. MEASUREMENTS Ao | | asc: 3.93 cmAo Diam: 3.90 cmAo sinus: 3.[address] junct: 3.68 cmIVC: 2.27 | | cmLA Major: 4.80 cmEDV(Teich): 92.01 mlIVSd: 1.00 cmLVIDd: 4.49 cmLVPWd: 1.08 | | cmLVOT Diam: 2.21 cm%FS: 10.09 %EF(Teich): 22.21 %ESV(Teich): 71.58 mlLVIDs: | | 4.03 cmSV(Teich): 20.43 mlRA Major: 4.67 cmRV Major: 7.51 cmRV Minor: 3.23 cmRV | | Minor: 2.84 cmLVEF MOD A2C: 44.63 %SV MOD A2C: 44.79 mlLVEF MOD A4C: 44.84 %SV | | MOD A4C: 39.92 mlEF Biplane: 44.78 %LVEDV MOD BP: 97.44 mlLVESV MOD BP: 53.80 | | mlLVEDV MOD A2C: 100.37 mlLVLd A2C: 8.90 cmLVEDV MOD A4C: 89.02 mlLVLd A4C: 8.36 | | cmLVESV MOD A2C: 55.57 mlLVLs A2C: 8.01 cmLVESV MOD A4C: 49.10 mlLVLs A4C: 7.47 | | cmLAESV(A-L): 45.96 mlLAESV Index (A-L): 19.23 ml/m2LAAs A2C: 16.32 [id number] A-L | | A2C: 43.15 mlLAESV MOD A2C: 41.52 mlLALs A2C: 5.24 cmLAAs A4C: 17.38 [id number] | | A-L A4C: 48.45 mlLAESV MOD A4C: 47.92 mlLALs A4C: 5.29 cmRAAs: 11.25 [id number] | | A-L: 21.29 mlRAESV MOD: 21.66 mlRALs: 5.04 cmTAPSE: 1.55 cmAV Env.Ti: 231.76 | | msAV maxP.86 mmHgAV meanP.51 mmHgAV Vmax: 1.30 m/Hermelindo Vmean: 1.02 m/Hermelindo | | VTI: 23.82 cmAVA Vmax: 2.22 cm2AVA (VTI): 2.17 [id number] Vmax: 0.00 cm2/m2AVAI | | (VTI): 0.00 cm2/m2LVOT Env.Ti: 271.33 msLVOT maxP.28 mmHgLVOT meanP.22 | | mmHgLVSI Dopp: 21.72 ml/m2LVSV Dopp: 51.91 mlLVOT Vmax: 0.75 m/sLVOT Vmean: 0.49 | | m/sLVOT VTI: 13.49 cmMV A Eliazar: 0.78 m/sMV Dec Webb: 3.02 m/s2MV DecT: 132.55 | | msMV E Eliazar: 0.40 m/sMV E/A Ratio: 0.51E/E' Sept: 9.77E' Lat: 0.05 m/sE' Sept: | | 0.04 m/sRV S': 0.11 m/s Dough Molder:Authenticated by: [facility] | | Date/Time: -- [id number] IMPRESSION: 1. This was a technically difficult | | study with suboptimal views.2. Overall left ventricular systolic function is mildly | | impaired with, an EF between 45 - 50 %.3. There is mild concentric left ventricular | | hypertrophy.4. There is mild global hypokinesis of LV contractility.5. The right | | ventricle is normal in size and function. | | | |Ao asc: 3.93 cm | |Ao Diam: 3.90 cm | |Ao sinus: 3.84 cm | |Ao st junct: 3.68 cm | |IVC: 2.27 cm | |LA Major: 4.80 cm | |EDV(Teich): 92.01 ml | |IVSd: 1.00 cm | |LVIDd: 4.49 cm | |LVPWd: 1.08 cm | |LVOT Diam: 2.21 cm | |%FS: 10.09 % | |EF(Teich): 22.21 % | |ESV(Teich): 71.58 ml | |LVIDs: 4.03 cm | |SV(Teich): 20.43 ml | |RA Major: 4.67 cm | |RV Major: 7.51 cm | |RV Minor: 3.23 cm | |RV Minor: 2.84 cm | |LVEF MOD A2C: 44.63 % | |SV MOD A2C: 44.79 ml | |LVEF MOD A4C: 44.84 % | |SV MOD A4C: 39.92 ml | |EF Biplane: 44.78 % | |LVEDV MOD BP: 97.44 ml | |LVESV MOD BP: 53.80 ml | |LVEDV MOD A2C: 100.37 ml | |LVLd A2C: 8.90 cm | |LVEDV MOD A4C: 89.02 ml | |LVLd A4C: 8.36 cm | |LVESV MOD A2C: 55.57 ml | |LVLs A2C: 8.01 cm | |LVESV MOD A4C: 49.10 ml | |LVLs A4C: 7.47 cm | |LAESV(A-L): 45.96 ml | |LAESV Index (A-L): 19.23 ml/m2 | |LAAs A2C: 16.32 cm2 | |LAESV A-L A2C: 43.15 ml | |LAESV MOD A2C: 41.52 ml | |LALs A2C: 5.24 cm | |LAAs A4C: 17.38 cm2 | |LAESV A-L A4C: 48.45 ml | |LAESV MOD A4C: 47.92 ml | |LALs A4C: 5.29 cm | |RAAs: 11.25 cm2 | |RAESV A-L: 21.29 ml | |RAESV MOD: 21.66 ml | |RALs: 5.04 cm | |TAPSE: 1.55 cm | |AV Env.Ti: 231.76 ms | |AV maxP.86 mmHg | |AV meanP.51 mmHg | |AV Vmax: 1.30 m/s | |AV Vmean: 1.02 m/s | |AV VTI: 23.82 cm | |EVANGELIST Vmax: 2.22 cm2 | |EVANGELIST (VTI): 2.17 cm2 | |AVAI Vmax: 0.00 cm2/m2 | |AVAI (VTI): 0.00 cm2/m2 | |LVOT Env.Ti: 271.33 ms | |LVOT maxP.28 mmHg | |LVOT meanP.22 mmHg | |LVSI Dopp: 21.72 ml/m2 | |LVSV Dopp: 51.91 ml | |LVOT Vmax: 0.75 m/s | |LVOT Vmean: 0.49 m/s | |LVOT VTI: 13.49 cm | |MV A Eliazar: 0.78 m/s | |MV Dec Webb: 3.02 m/s2 | |MV DecT: 132.55 ms | |MV E Eliazar: 0.40 m/s | |MV E/A Ratio: 0.51 | |E/E' Sept: 9.77 | |E' Lat: 0.05 m/s | |E' Sept: 0.04 m/s | |RV S': 0.11 m/s | | | |Dough Molder: | |Authenticated by: Adele Rodriguez MD | |Report Date/Time: -- [id number] | | | |IMPRESSION: | |1. This was a technically difficult study with suboptimal views. | |2. Overall left ventricular systolic function is mildly impaired with, an EF between 45 - 5 0 %. | |3. There is mild concentric left ventricular hypertrophy. | |4. There is mild global hypokinesis of LV contractility. | |5. The right ventricle is normal in size and function. | + -----+ documented in this encounter Visit Diagnoses Not on filedocumented in this encounter"
--- OUTSIDE RECORDS SUMMARY | ~2019-05-02 | XMS | Encounter Summary ---
Demographics + + + | Address | [address] | | | [place] [address] | + + + | Home Phone | | + + + | Preferred Language | Unknown | + + + | Marital Status | | + + + | Restorationist Affiliation | [id number] | + + + | Race | Unknown | + + + | Ethnic Group | Unknown | + + + Author + + + | Author | [facility] | | | and [place] | + + + | Organization | [facility] | | | and [place] | + + + | Address | Unknown | + + + | Phone | Unavailable | + + + Support + + + + + | Name | Relationship | Address | Phone | + + + + + | Shlomo Holliday | ECON | [address] | | | | | [place] | | | | | [address] | | + + + + + Care Team Providers + +------+ + | Care Programming Director Name | Role | Phone | + [...] | | ANTHONY OLVERA | [place], [place] | | | | | [place], [place] | [address] | | | | | [address] | | | | | | [phone] | | | +--------+ + + + [...] 0.78 m/s MV | | | Dec Sevier: 3.02 m/s2 MV DecT: 132.55 ms MV E Eliazar: 0.40 m/s | | | MV E/A Ratio: 0.51 E/E' Sept: 9.77 E' Lat: 0.05 m/s E' | | | Sept: 0.04 m/s RV S': 0.11 m/s Pump Runner: Authenticated | | | by: Adele Rodriugez MD Report Date/Time: -- [id number] | | + + + + -----+ [...] mlLAESV Index (A-L): 19.23 ml/m2LAAs A2C: 16.32 [id number] A-L | | A2C: 43.15 mlLAESV MOD A2C: 41.52 mlLALs A2C: 5.24 cmLAAs A4C: 17.38 [id number] | | A-L A4C: 48.45 mlLAESV MOD A4C: 47.92 mlLALs A4C: 5.29 cmRAAs: 11.25 [id number] | | A-L: 21.29 mlRAESV MOD: 21.66 mlRALs: 5.04 cmTAPSE: 1.55 cmAV Env.Ti: 231.76 | | msAV maxP.86 mmHgAV meanP.51 mmHgAV Vmax: 1.30 m/Hermelindo Vmean: 1.02 m/Hermelindo | | VTI: 23.82 cmAVA Vmax: 2.22 cm2AVA (VTI): 2.17 [id number] Vmax: 0.00 cm2/m2AVAI | | (VTI): 0.00 cm2/m2LVOT Env.Ti: 271.33 msLVOT maxP.28 mmHgLVOT meanP.22 | | mmHgLVSI Dopp: 21.72 ml/m2LVSV Dopp: 51.91 mlLVOT Vmax: 0.75 m/sLVOT Vmean: 0.49 | | m/sLVOT VTI: 13.49 cmMV A Eliazar: 0.78 m/sMV Dec Sevier: 3.02 m/s2MV DecT: 132.55 | | msMV E Eliazar: 0.40 m/sMV E/A Ratio: 0.51E/E' Sept: 9.77E' Lat: 0.05 m/sE' Sept: | | 0.04 m/sRV S': 0.11 m/s Pump Runner:Authenticated by: [facility]le [facility] | | Date/Time: -- [id number] IMPRESSION: 1. This was a technically difficult [...] A Eliazar: 0.78 m/s | |MV Dec Sevier: 3.02 m/s2 | |MV DecT: 132.55 ms | |MV E Eliazar: 0.40 m/s | |MV E/A Ratio: 0.51 | |E/E' Sept: 9.77 | |E' Lat: 0.05 m/s | |E' Sept: 0.04 m/s | |RV S': 0.11 m/s | | | |Pump Runner: | |Authenticated by: Adele Rodriguez MD | |Report Date/Time: -- [id number]:14 | | | |IMPRESSION: | |1. This [...]
--- OUTSIDE RECORDS SUMMARY | ~2019-05-02 | XMS | Encounter Summary ---
Demographics + + + | Address | [address] | | | [place] [address] | + + + | Home Phone | | + + + | Preferred Language | Unknown | + + + | Marital Status | | + + + | Judaism Affiliation | 1041 | + + + | Race | Unknown | + + + | Ethnic Group | Unknown | + + + Author + + + | Author | [facility] | | | and [place] | + + + | Organization | [facility] | | | and [place] | + + + | Address | Unknown | + + + | Phone | Unavailable | + + + Support + + + + + | Name | Relationship | Address | Phone | + + + + + | Shlomo Holliday | ECON | [address] | | | | | [place] | | | | | [address] | | + + + + + Care Team Providers + +------+ + | Care Engine Installer Name | Role | Phone | + +------+ + | Manjit Patterson DO | PCP | | + +------+ + Reason for Visit Auth/Cert +--------+--------+ + + + + | Status | Reason | Specialty | Diagnoses / | Referred By | Referred To | | | | | Procedures | Contact | Contact | +--------+--------+ + + + + | | | | | | | +--------+--------+ + + + + Encounter Details +--------+ + + + + | Date | Type | Department | Care Team | Description | +--------+ + + + + | 02/07/ | Hospital | [facility] | Abdulaziz Winn, | Right wrist pain | | 2018 | Encounter | MED CTR XRAY [address] | [address] | | | | | [place] | [place] | | | | | [place] [address] | [address] | | | | | [phone] | [phone] | | | | | | | | | | | | Hal Jackman Ir | | +--------+ + + + + [...] + + documented as of this encounter Medications at Time of Discharge + + + +---------+--------+ + | Medication | Sig | Dispensed | Refills | Start | End Date | | | | | | Date | | + + + +---------+--------+ + | aspirin 81 mg EC | Take 81 mg by mouth | | 0 | | | | tablet | Daily. | | | | | + + + +---------+--------+ + | fenofibrate | Take 160 mg by mouth | | 0 | | | | (LOFIBRA, TRIGLIDE) | Daily. | | | | | | 160 mg tablet | | | | | | + + + +---------+--------+ + | fexofenadine | Take 180 mg by mouth | | 0 | | | | (EVIN) 180 mg | Daily. | | | | | | tablet | | | | | | + + + +---------+--------+ + | fluticasone | 2 sprays by Nasal | | 0 | | | | (FLONASE) 50 | route as needed. | | | | | | mcg/nasal spray | | | | | | + + + +---------+--------+ + | glipiZIDE | Take 5 mg by mouth | | 0 | | | | (GLUCOTROL) 5 mg | every morning | | | | | | tablet | (before breakfast). | | | | | + + + +---------+--------+ + | pseudoePHEDrine | Take 60 mg by mouth | | 0 | | | | (SUDAFED) 60 MG | Twice daily as | | | | | | tablet | needed. | | | | | + + + +---------+--------+ + | | Take 2 tablets by | | 0 | | | | sitagliptan-metFORMI | mouth Daily. | | | | | | N (JANUMET) 50-1000 | | | | | | | MG per tablet | | | | | | + + + +---------+--------+ + | tamsulosin | Take 0.4 mg by mouth | | 0 | | | | (FLOMAX) 0.4 mg CAPS | daily (after | | | | | | | breakfast). | | | | | + + + +---------+--------+ + | allopurinol | Take 100 mg by mouth | | 0 | | | | (ZYLOPRIM) 100 mg | Daily. | | | | 9 | | tablet | | | | | | + + + +---------+--------+ + | | Take 5 mLs by mouth | | 0 | | | | guaiFENesin-codeine | every 4 hours as | | | | 9 | | (ROBITUSSIN AC) | needed for Cough. | | | | | | 100-10 mg/5 mL | | | | | | | liquid | | | | | | + + + +---------+--------+ + | insulin glargine | Inject 57 Units | | 0 | | | | (LANTUS SOLOSTAR) | under the skin | | | | 9 | | 100 units/mL | nightly. | | | | | | injection (pen) | | | | | | + + + +---------+--------+ + | liraglutide | Inject 1.8 mg under | | 0 | | | | (VICTOZA) 18 mg/3 mL | the skin Daily. | | | | 9 | | injection | | | | | | + + + +---------+--------+ + | PARoxetine (PAXIL) | Take 40 mg by mouth | | 0 | | | | 40 MG tablet | every morning. | | | | 9 | + + + +---------+--------+ + | rosuvastatin | Take 20 mg by mouth | | 0 | | | | (CRESTOR) 20 mg | nightly. | | | | 9 | | tablet | | | | | | + + + +---------+--------+ + documented as of this encounter Plan of Treatment Not on filedocumented as of this encounter Procedures + +--------+ + + + | Procedure Name | Priori | Date/Time | Associated Diagnosis | Comments | | | ty | | | | + +--------+ + + + | FL WRIST INJECTION | Routin | 02/07/2018 | Right wrist pain | Results for this | | RIGHT FOR MRI OR CT | e | 11:30 AM | | procedure are in the | | | | PDT | | results section. | + +--------+ + + + documented in this encounter Results FL Wrist Injection Right for MRI or CT (02/07/2018 11:30 AM PDT) + + | Specimen | + + | | + + + + + | Narrative | Performed At | + + + | CLINICAL INFORMATION: MR ARTHROGRAM RT WRIST PAIN COMPARISON: | [facility] | | None available. PROCEDURE: Risks of the procedure include pain, | | | infection, bleeding, allergic reaction, and nondiagnostic. An | | | informed written consent was obtained. A final time out was | | | performed. The surface overlying the right radiocarpal joint was | | | sterilely prepped and draped. Under fluoroscopic guidance, the | | | entry site was selected. The area was locally infiltrated with 2 ml | | | of 1% lidocaine. A 27-gauge needle was advanced perpendicular to | | | the fluoroscopic table and into the right radiocarpal joint, | | | confirmed with contrast injection under fluoroscopy. Subsequently, 3 | | | ml of a mixture of 5 mL Omnipaque, 2.5 mL normal saline, 2 mL 1% | | | lidocaine, and 0.025 mL Gadavist was injected into the joint. | | | No immediate complication. The patient was transferred to the | | | MR suite for MR arthrogram portion of the exam. IMPRESSION - | | | Technically successful right wrist arthrogram. Refer to subsequent | | | MR arthrogram for detailed findings. Dictated and Signed by: | | | Kip De La Cruz MD Electronically signed: 02/07/2018 12:52 PM | | + + + + + | Procedure Note | + + | Salomon, Rad Results In - 02/07/2018 12:55 PM PDT CLINICAL INFORMATION: MR ARTHROGRAM RT | | WRIST PAINCOMPARISON: None available.PROCEDURE: Risks of the procedure include pain, | | infection, bleeding, allergicreaction, and nondiagnostic. An informed written consent | | was obtained. A finaltime out was performed.The surface overlying the right radiocarpal | | joint was sterilely prepped anddraped. Under fluoroscopic guidance, the entry site was | | selected. The area waslocally infiltrated with 2 ml of 1% lidocaine. A 27-gauge | | needle was advancedperpendicular to the fluoroscopic table and into the right | | radiocarpal joint,confirmed with contrast injection under fluoroscopy. Subsequently, 3 | | ml of amixture of 5 mL Omnipaque, 2.5 mL normal saline, 2 mL 1% lidocaine, and 0.025 | | mLGadavist was injected into the joint. No immediate complication. The patient was | | transferred to the MR suite for MR arthrogram portion of theexam.IMPRESSION - | | Technically successful right wrist arthrogram. Refer to subsequentMR arthrogram for | | detailed findings.Dictated and Signed by: Kip De La Cruz MD Electronically signed: | | 02/07/2018 12:52 PM | |Gadavist was injected into the joint. | | | |No immediate complication. | | | |The patient was transferred to the MR suite for MR arthrogram portion of the | |exam. | | | |IMPRESSION - Technically successful right wrist arthrogram. Refer to subsequent | |MR arthrogram for detailed findings. | | | |Dictated and Signed by: Kip De La Cruz MD | | Electronically signed: 02/07/2018 12:52 PM | + + + +---------+ + + | Performing | Address | City/State/Zipcode | Phone Number | | Organization | | | | + +---------+ + + | [facility] | | | | + +---------+ + + documented in this encounter Visit Diagnoses + + | Diagnosis | + + | Right wrist pain Pain in joint, forearm | + + documented in this encounter Administered Medications + +--------+ + +------+------+ | Medication Order | MAR | Action | Dose | Rate | Site | | | Action | Date | | | | + +--------+ + +------+------+ | gadobutrol (GADAVIST) injection | Given | 02/08/20 | 0.05 mLs | | | | 0.05 mL 0.05 mL, | | 18 11:02 | | | | | Intra-articular, ONCE PRN, Other, | | AM PDT | | | | | Starting 02/07/18 at 1101, | | | | | | | For 1 dose, MRI | | | | | | + +--------+ + +------+------+ +---+---+ | | | +---+---+ + +-------+ +-------+---+---+ | iohexol (OMNIPAQUE 240) 240 | Given | 02/08/20 | 5 mLs | | | | mg/mL injection 5 mL 5 mL, | | 18 11:30 | | | | | Intra-articular, ONCE, Fri | | AM PDT | | | | | 02/07/18 at 1130, For 1 dose, | | | | | | | Radiology | | | | | | + +-------+ +-------+---+---+ +---+---+ | | | +---+---+ + +-------+ +-------+---+ + | lidocaine 1% injection 5 mL 5 | Given | 02/08/20 | 5 mLs | | Other | | mL, Intradermal, ONCE, Fri | | 18 11:30 | | | (Comment | | 02/07/18 at 1130, For 1 dose | | AM PDT | | | ) | + +-------+ +-------+---+ + +---+---+ | | | +---+---+ documented in this encounter"
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
--- OUTSIDE RECORDS SUMMARY | ~2019-05-02 | XMS | Encounter Summary ---
Demographics + + + | Address | [address] | | | [place] [address] | + + + | Home Phone | | + + + | Preferred Language | Unknown | + + + | Marital Status | | + + + | Druze Affiliation | NON | + + + | Race | or | + + + | Ethnic Group | Not or | + + + Author + + + | Author | [facility] | + + + | Organization | [facility] | + + + | Address | Unknown | + + + | Phone | Unavailable | + + + Support + + +---------+ + | Name | Relationship | Address | Phone | + + +---------+ + | Shlomo Holliday | ECON | Unknown | | + + +---------+ + Care Team Providers + +------+ + | Care High Density Talc Coater Operator Name | Role | Phone | + +------+ + PCP | Unavailable | + +------+ + Encounter Details +--------+ + + + + | Date | Type | Department | Care Team | Description | +--------+ + + + + | 11/16/ | Transcribed | [facility] | Referral, Home | Transcribed | | 2005 | | | Health | | +--------+ + + + + [...] + + documented as of this encounter Progress Notes Interface, Solar Energy Systems Engineer In - 12/03/2004 10:45 AM PDT Marshall Holliday [id number] [facility] REC NUMBER: [id number] NAME : Marshall Holliday DATE : 1955 Admit Date: 11/06/2004 Discharge Date: 11/16/2004 PHYSICIAN'S REQUEST FOR HOME HEALTH SERVICES Relevant History: Location to receive services if other than home: Allergies: Height: Weight: [facility] [id number] [place] [address] Physician to follow for ongoing home health orders: PCP Name: PCP Phone: Discharge Need(s): 1. DME Equipment (commode, wheelchair, etc) Discharge Vendor: Discharge Suggested First Visit/Delivery Date: Discharge Service/Equipment: Wide Wheelchair, Wide Bedside commode, hospital bed, [facility] Physical therapy, RN, Caregiver assistance Video Games Mechanic: Jane Lara RN documented i n this encounter Plan of Treatment Not on filedocumented as of this encounter Visit Diagnoses Not on filedocumented in this encounter"
--- OUTSIDE RECORDS SUMMARY | ~2019-05-02 | XMS | Encounter Summary ---
Demographics + + + | Address | [address] | | | [place] [address] | + + + | Home Phone | | + + + | Preferred Language | Unknown | + + + | Marital Status | | + + + | Caodaism Affiliation | NON | + + + | Race | or | + + + | Ethnic Group | Not or | + + + Author + + + | Author | [facility] | + + + | Organization | [facility] | + + + | Address | Unknown | + + + | Phone | Unavailable | + + + Support + + +---------+ + | Name | Relationship | Address | Phone | + + +---------+ + | Shlomo Holliday | ECON | Unknown | | + + +---------+ + Care Team Providers + +------+ + | Care Automobile Spring Repairer Name | Role | Phone | + +------+ + | Francisco Estrada PCP | Unavailable | + +------+ + Encounter Details +--------+ + + + + | Date | Type | Department | Care Team | Description | +--------+ + + + + | 11/08/ | Office | Neurosurgery [address], | | | 2005 | Visit-[facility] | [address] Villavicencio MD | | | | | Rd Mailcode:[address] | | | | | | [employer] | | | | | | [place], [place] | | | | | | [address] | | | | | | [phone] | | | +--------+ + + + [...] + + documented as of this encounter Last Filed Vital Signs + + + + + | Vital Sign | Reading | Time Taken | Comments | + + + + + | Blood Pressure | 140/88 | 11/08/2005 9:59 AM | | | | | PDT | | + + + + + | Pulse | 81 | 11/08/2005 9:59 AM | | | | | PDT | | + + + + + | Temperature | - | - | | + + + + + | Respiratory Rate | 19 | 11/08/2005 9:59 AM | | | | | PDT | | + + + + + | Oxygen Saturation | - | - | | + + + + + | Inhaled Oxygen | - | - | | | Concentration | | | | + + + + + | Weight | 125 kg (275 lb 9.2 | 11/08/2005 9:59 AM | | | | oz) | PDT | | + + + + + | Height | 175.3 cm (5' 9") | 11/08/2005 9:59 AM | | | | | PDT | | + + + + + | Body Mass Index | 40.7 | 11/08/2005 9:59 AM | | | | | PDT | | + + + + + documented in this encounter Plan of Treatment Not on filedocumented as of this encounter Visit Diagnoses Not on filedocumented in this encounter
--- OUTSIDE RECORDS SUMMARY | ~2019-05-02 | XMS | Encounter Summary ---
Demographics + + + | Address | [address] | | | [place] [address] | + + + | Home Phone | | + + + | Preferred Language | Unknown | + + + | Marital Status | | + + + | Sabianism Affiliation | NON | + + + | Race | or | + + + | Ethnic Group | Not or | + + + Author + + + | Author | [facility] | + + + | Organization | [facility] | + + + | Address | Unknown | + + + | Phone | Unavailable | + + + Support + + +---------+ + | Name | Relationship | Address | Phone | + + +---------+ + | Shlomo Holliday | ECON | Unknown | | + + +---------+ + Care Team Providers + +------+ + | Care Leather Staker Name | Role | Phone | + +------+ + | Francisco Estrada PCP | Unavailable | + +------+ + Encounter Details +--------+ + + + + | Date | Type | Department | Care Team | Description | +--------+ + + + + | 12/17/ | Ancillary | Registration [id number] | Trace Renteria, | | | 2005 | Registratio | DEMARCUS Villavicencio MD | | | | n | Adrián Mailcode: [id number] | | | | | | [place], [place] | | | | | | [address] | | | | | | [phone] | | | +--------+ + + + [...] | + +--------+ + + + | X-RAY CHEST 2 VIEW | Routin | 12/17/2005 | | Results for this | | | e | 10:53 AM | | procedure are in the | | | | PDT | | results section. | + +--------+ + + + | BASIC METABOLIC SET | Routin | 12/17/2005 | | Results for this | | (NA, K, CL, TCO2, | e | 10:30 AM | | procedure are in the | | BUN, CR, GLU, CA) | | PDT | | results section. | + +--------+ + + + | CBC ONLY | Routin | 12/17/2005 | | Results for this | | | e | 10:30 AM | | procedure are in the | | | | PDT | | results section. | + +--------+ + + + documented in this encounter Results CHEST 2 VIEW (12/17/2005 10:53 AM PDT) + + + + + + | Component | Value | Ref Range | Performed | Pathologist | | | | | At | Signature | + + + + + + | CHEST, 2 | Radiologist 1: ROSAS, | | | | | [place] | JOLENE ChappellEXAM: PA and | | | | | STEREO | lateral chest. | | | | | | INDICATION: Preoperative | | | | | | evaluation of carpal | | | | | | tunnel syndrome | | | | | | COMPARISON: 11/12/04 | | | | | | FINDINGS: The cardiac | | | | | | and mediastinal contours | | | | | | are normal. Thelungs | | | | | | demonstrate bibasilar | | | | | | areas of | | | | | | atelectasis/vascularcrow | | | | | | ding. There no focal | | | | | | areas of consolidation. | | | | | | There is nopleural | | | | | | effusion or | | | | | | pneumothorax. Osseous | | | | | | structures | | | | | | demonstratenumerous | | | | | | right-sided weld non | | | | | | union rib fractures. | | | | | | Mild apicalthickening | | | | | | is present. IMPRESSION: | | | | | | 1. Numerous old | | | | | | right-sided rib | | | | | | fractures. | | | | + + + + + + + + | Specimen | + + | | + + + +---------+ + + | Performing | Address | City/State/Zipcode | Phone Number | | Organization | | | | + +---------+ + + | [facility] | | | | | RADIOLOGY | | | | + +---------+ + + BASIC METABOLIC SET (12/17/2005 10:30 AM PDT) + +-------+ + + + | Component | Value | Ref Range | Performed | Pathologist | | | | | At | Signature | + +-------+ + + + | GLUCOSE, | 110 | 65 - 110 mg/dL | [facility] | | | PLASMA | | | DEPARTMENT | | | (LAB) | | | OF | | | | | | PATHOLOGY | | + +-------+ + + + | BUN, PLASMA | 17 | 6 - 20 mg/dL | [facility] | | | (LAB) | | | DEPARTMENT | | | | | | OF | | | | | | PATHOLOGY | | + +-------+ + + + | CREATININE | 1.2 | 0.7 - 1.3 mg/dL | [facility] | | | PLASMA | | | DEPARTMENT | | | (LAB) | | | OF | | | | | | PATHOLOGY | | + +-------+ + + + | SODIUM, | 138 | 136 - 145 | [facility] | | | PLASMA | | mmol/L | DEPARTMENT | | | (LAB) | | | OF | | | | | | PATHOLOGY | | + +-------+ + + + | POTASSIUM, | 4.5 | 3.5 - 5.1 | [facility] | | | PLASMA | | mmol/L | DEPARTMENT | | | (LAB) | | | OF | | | | | | PATHOLOGY | | + +-------+ + + + | CHLORIDE, | 102 | 98 - 107 mmol/L | [facility] | | | PLASMA | | | DEPARTMENT | | | (LAB) | | | OF | | | | | | PATHOLOGY | | + +-------+ + + + | TOTAL CO2, | 28 | 23 - 29 mmol/L | [facility] | | | PLASMA | | | DEPARTMENT | | | (LAB) | | | OF | | | | | | PATHOLOGY | | + +-------+ + + + | CALCIUM, | 9.0 | 8.5 - 10.5 | [facility] | | | PLASMA | | mg/dL | DEPARTMENT | | | (LAB) | | | OF | | | | | | PATHOLOGY | | + +-------+ + + + + + | Specimen | + + | | + + + + + | Narrative | Performed At | + + + | [id number] Estimated GFR > 60 mL/min/1.73 sq m if non- | [facility] | | [id number] Estimated GFR > 60 mL/min/1.73 sq m if GFR | DEPARTMENT OF | | is estimated using the MDRD equation recommended by the National | PATHOLOGY | | Kidney Disease Education Program. Estimated GFR Interpretive | | | Information: <60 mL/min/1.73 sq m Chronic Kidney Disease <15 | | | mL/mon/1.73 sq m Kidney Failure Estimated GFR greater than | | | 60mL/min/1.73 is of limited clinical Value. The MDRD equation is | | | not valid in the following situations: - Patients under 18 years of | | | age - Severe malnutrition or obesity - Vegetarian diet - Rapidly | | | changing kidney function | | + + + + + + + + | Performing | Address | City/State/Zipcode | Phone Number | | Organization | | | | + + + + + | [facility]PARTMENT [facility] | [address] | [place] [address] | | | PATHOLOGY | [address] | | | + + + + + | [facility]MENT [facility] | [address] | [place] [address] | | | PATHOLOGY | [address] | | | + + + + + CBC ONLY WITH PLATELET (12/17/2005 10:30 AM PDT) + + + + + + | Component | Value | Ref Range | Performed | Pathologist | | | | | At | Signature | + + + + + + | WHITE CELL | 8.4 | 4.4 - 11.0 K/cu | [facility] | | | COUNT | | mm | DEPARTMENT | | | | | | OF | | | | | | PATHOLOGY | | + + + + + + | RED CELL | 4.52 | 4.50 - 5.90 | [facility] | | | COUNT | | M/cu mm | DEPARTMENT | | | | | | OF | | | | | | PATHOLOGY | | + + + + + + | HEMOGLOBIN | 13.7 | 13.5 - 17.5 | [facility] | | | | | g/dL | DEPARTMENT | | | | | | OF | | | | | | PATHOLOGY | | + + + + + + | HEMATOCRIT | 38.3 (L) | 41.0 - 53.0 % | [facility] | | | | | | DEPARTMENT | | | | | | OF | | | | | | PATHOLOGY | | + + + + + + | MCV | 84.6 | 80.0 - 96.0 fL | [facility] | | | | | | DEPARTMENT | | | | | | OF | | | | | | PATHOLOGY | | + + + + + + | MCHC | 35.7 (H) | 33.4 - 35.5 | [facility] | | | | | g/dL | DEPARTMENT | | | | | | OF | | | | | | PATHOLOGY | | + + + + + + | RDW | 13.6 | 11.5 - 15.0 % | [facility] | | | | | | DEPARTMENT | | | | | | OF | | | | | | PATHOLOGY | | + + + + + + | PLATELET | 196 | 150 - 400 K/cu | [facility] | | | COUNT | | mm | DEPARTMENT | | | | | | OF | | | | | | PATHOLOGY | | + + + + + + + + | Specimen | + + | | + + + + + + + | Performing | Address | City/State/Zipcode | Phone Number | | Organization | | | | + + + + + | [facility] | [address] | [place] [address] | | | PATHOLOGY | [address] | | | + + + + + | [facility] | [address] | [place] [address] | | | PATHOLOGY | [address] | | | + + + + + documented in this encounter Visit Diagnoses Not on filedocumented in this encounter"
--- OUTSIDE RECORDS SUMMARY | ~2019-05-02 | XMS | Encounter Summary ---
Demographics + + + | Address | [address] | | | [place] [address] | + + + | Home Phone | | + + + | Preferred Language | Unknown | + + + | Marital Status | | + + + | Religion Affiliation | 1041 | + + + | Race | Unknown | + + + | Ethnic Group | Unknown | + + + Author + + + | Author | [facility] | | | and [place] | + + + | Organization | [facility] | | | and [place] | + + + | Address | Unknown | + + + | Phone | Unavailable | + + + Support + + + + + | Name | Relationship | Address | Phone | + + + + + | Shlomo Holliday | ECON | [address] | | | | | [place] | | | | | [address] | | + + + + + Care Team Providers + +------+ + | Care Fitness Coach Name | Role | Phone | + +------+ + | Manjit Patterson DO | PCP | | + +------+ + Reason for Referral Diagnostic/Screening (Routine) +--------+--------+ + + + + | Status | Reason | Specialty | Diagnoses / | Referred By | Referred To | | | | | Procedures | Contact | Contact | +--------+--------+ + + + + | Closed | | Radiology | Diagnoses | Winn, | [facility] | | | | | Right wrist | Abdulaziz Davis, | [facility] | | | | | pain | MD [address] | [place] | | | | | Procedures | Echo Chapin | MEDICAL | | | | | MRI Wrist | Roxy, | CENTER [address] | | | | | Right | [place] | [place] | | | | | Arthrogram w | [address] | Kylie Espinal, | | | | | Contrast | Phone: | [place] [address] | | | | | | [phone] | Phone: | | | | | | Fax: | [phone] | | | | | | [phone] | Fax: | | | | | | | [phone] | +--------+--------+ + + + + Reason for Visit Auth/Cert +--------+--------+ + [...] + + | 02/07/ | Hospital | [facility] | Abdulaziz Winn, | Right wrist pain | | 2018 | Encounter | [facility] MRI [address] | MD Carla Dodge | | | | | Garry Espinal, | [place] | | | | | [place] [address] | [address] | | | | | [phone] | [phone] | | | | | | | | +--------+ + + [...] | + +--------+ + + + | MRI WRIST RIGHT | Routin | 02/07/2018 | Right wrist pain | Results for this | | ARTHROGRAM W | e | 12:06 PM | | procedure are in the | | CONTRAST | | PDT | | results section. | + +--------+ + + + documented in this encounter Results MRI Wrist Right Arthrogram w Contrast (02/07/2018 12:06 PM PDT) + + | Specimen | + + | | + + + + | Addenda | + + | Addendum by Vinayak Phoenix MD on 02/11/2018 9:46 AM The addendum is being | | performed to correct hydraulic press tender errors in the impression. There is a line in | | the impression that states there is near complete absence of the tracheal | | fibrocartilage. This should read as follows: Near complete absence of the | | triangular fibrocartilage. 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 This should read as follows: Insufficiency in the scapholunate | | interosseous ligament without abnormal alignment at this time. Dictated and Signed | | by: Vinayak Phoenix MD Electronically signed: 02/11/2018 9:43 AM | + + + + + | Narrative | Performed At | + + + | MRI WRIST RIGHT ARTHROGRAM W CONTRAST 02/07/2018 11:30 AM | [facility] | | HISTORY: Atraumatic right wrist pain. COMPARISON: None. | | | PROTOCOL: After arthrogram, the following sequences were obtained: | | | Axial proton density fat sat, axial T1 fat sat, coronal T1 fat sat, | | | coronal T2 fat sat, coronal T1, sagittal T2 fat sat. FINDINGS: | | | There is a marker in place along the lateral aspect of the hand in the | | | base of the fifth metacarpal. Tendons: There is enlargement | | | and heterogeneous increased signal throughout the visible portions | | | of the extensor carpi ulnaris tendon. This is most significant at | | | and just distal to the ulnar styloid. There is mild tenosynovial | | | fluid. There is no complete tear or retraction of the tendon. The | | | tendon is slightly subluxed in an ulnar direction suggesting | | | insufficiency in the tendon subsheath. The remainder of the | | | extensor tendons are otherwise unremarkable. Flexor tendons | | | proximal to, within, and distal to the carpal tunnel are intact. | | | Question prior carpal tunnel release as the flexor retinaculum appears | | | incomplete.. The median nerve is normal in size and signal. | | | Ligaments and TFCC: Contrast is seen in the mid carpal row | | | consistent with insufficiency in the scapholunate interosseous | | | ligament. The lunotriquetral ligament is not well seen. The | | | extrinsic ligaments are not well imaged. There is contrast within | | | the distal radial ulnar joint. There is a largely absent triangular | | | fibrocartilage. The proximal and distal lamina are thickened and | | | heterogeneous but appear to be intact. The volar radioulnar ligament | | | is not clearly intact. The dorsal radioulnar ligament is intact. | | | The meniscal homolog is intact. Other: There is narrowing | | | of the articular surface in the radiolunate fossa. There are cystic | | | changes in the capitate and hamate along the articular component with | | | the lunate. There appears to be mild articular surface narrowing | | | at these sites as well. There is irregularity and narrowing in the | | | distal radioulnar joint. There are reactive marrow changes in the | | | articulating ulna. No acute osseous abnormalities. No | | | malalignment. There may be some mild atrophy in the thenar | | | muscles. IMPRESSION - The marker overlies the extensor carpi | | | ulnaris tendon. There is moderate tendinosis and intrasubstance | | | partial tearing of the tendon centered around the ulnar styloid. | | | There is also evidence of insufficiency in the tendon subsheath | | | resulting in slight subluxation the current position. Near | | | complete absence of the tracheal fibrocartilage. This is probably | | | degenerative and may be posttraumatic degenerative. Insufficiency | | | in the scapholunate interosseous ligament without abnormal alignment | | | at the spine. Degenerative changes in the lunate fossa and mid | | | carpals. Suggestion of a thenar atrophy. Dictated and Signed | | | by: Vinayak Phoenix MD Electronically signed: 02/07/2018 2:36 PM | | + + + + + | Procedure Note | + + | Salomon, Rad Results In - 02/07/2018 2:39 PM PDT MRI WRIST RIGHT ARTHROGRAM W CONTRAST | | 02/07/2018 11:30 AM HISTORY: Atraumatic right wrist pain.COMPARISON: None.PROTOCOL: After | | arthrogram, the following sequences were obtained: Axial protondensity fat sat, axial | | T1 fat sat, coronal T1 fat sat, coronal T2 fat sat,coronal T1, sagittal T2 fat | | sat.FINDINGS: There is a marker in place along the lateral aspect of the hand in thebase | | of the fifth metacarpal.Tendons: There is enlargement and heterogeneous increased | | signal throughout the visibleportions of the extensor carpi ulnaris tendon. This is | | most significant at andjust distal to the ulnar styloid. There is mild tenosynovial | | fluid. There isno complete tear or retraction of the tendon. The tendon is slightly | | subluxedin an ulnar direction suggesting insufficiency in the tendon subsheath.The | | remainder of the extensor tendons are otherwise unremarkable. Flexortendons proximal | | to, within, and distal to the carpal tunnel are intact. Question prior carpal tunnel | | release as the flexor retinaculum appearsincomplete.. The median nerve is normal in | | size and signal.Ligaments and TFCC:Contrast is seen in the mid carpal row consistent | | with insufficiency in thescapholunate interosseous ligament. The lunotriquetral | | ligament is not wellseen. The extrinsic ligaments are not well imaged.There is contrast | | within the distal radial ulnar joint. There is a largelyabsent triangular | | fibrocartilage. The proximal and distal lamina are thickenedand heterogeneous but | | appear to be intact. The volar radioulnar ligament is notclearly intact. The dorsal | | radioulnar ligament is intact. The meniscal homologis intact.Other:There is narrowing | | of the articular surface in the radiolunate fossa. There arecystic changes in the | | capitate and hamate along the articular component with thelunate. There appears to be | | mild articular surface narrowing at these sites aswell. There is irregularity and | | narrowing in the distal radioulnar joint. There are reactive marrow changes in the | | articulating ulna. No acute osseousabnormalities. No malalignment.There may be some | | mild atrophy in the thenar muscles.IMPRESSION -The marker overlies the extensor carpi | | ulnaris tendon. There is moderatetendinosis and intrasubstance partial tearing of the | | tendon centered around theulnar styloid. There is also evidence of insufficiency in the | | tendon subsheathresulting in slight subluxation the current position.Near complete | | absence of the tracheal fibrocartilage. 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 The volar radioulnar ligament is not | |clearly intact. The dorsal radioulnar ligament is intact. The meniscal homolog | |is intact. | | | |Other: | | | |There is narrowing of the articular surface in the radiolunate fossa. There are | |cystic changes in the capitate and hamate along the articular component with the | |lunate. There appears to be mild articular surface narrowing at these sites as | |well. There is irregularity and narrowing in the distal radioulnar joint. | |There are reactive marrow changes in the articulating ulna. No acute osseous | |abnormalities. No malalignment. | | | |There may be some mild atrophy in the thenar muscles. | | | |IMPRESSION - | | | |The marker overlies the extensor carpi ulnaris tendon. There is moderate | |tendinosis and intrasubstance partial tearing of the tendon centered around the | |ulnar styloid. There is also evidence of insufficiency in the tendon subsheath | |resulting in slight subluxation the current position. 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 This is probably | |degenerative and may be posttraumatic degenerative. 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 | | | |Degenerative changes in the lunate fossa and mid carpals. | | | |Suggestion of a thenar atrophy. | | | |Dictated and Signed by: Vinayak Phoenix MD | | Electronically signed: 02/07/2018 2:36 PM | + + + +---------+ + [...] forearm | + + documented in this encounter"
--- OUTSIDE RECORDS SUMMARY | ~2019-05-02 | XMS | Encounter Summary ---
Demographics + + + | Address | [address] | | | [place] [address] | + + + | Home Phone | | + + + | Preferred Language | Unknown | + + + | Marital Status | | + + + | Orthodoxy Affiliation | 1041 | + + + | Race | Unknown | + + + | Ethnic Group | Unknown | + + + Author + + + | Author | [facility] | | | and [place] | + + + | Organization | [facility] | | | and [place] | + + + | Address | Unknown | + + + | Phone | Unavailable | + + + Support + + + + + | Name | Relationship | Address | Phone | + + + + + | Shlomo Holliday | ECON | [address] | | | | | [place] | | | | | [address] | | + + + + + Care Team Providers + +------+ + | Care Mechanical Car Checker Name | Role | Phone | + +------+ + PCP | Unavailable | + +------+ + Encounter Details +--------+ + + + + | Date | Type | Department | Care Team | Description | +--------+ + + + + | 05/13/ | Hospital | [facility] | Lucio Grier MD | Unspecified Chest | | 2007 - | Encounter | [facility] | | Pain | | | | CLINICAL DECISION | | | | 05/14/ | | [address] | | | | 2007 | | [place], [place] | | | | | | [address] | | | | | | [phone] | | | +--------+ + + + [...] filedocumented as of this encounter Visit Diagnoses + + | Diagnosis | + + | Chest pain, unspecified | + + documented in this encounter"
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
--- OUTSIDE RECORDS SUMMARY | ~2019-05-02 | XMS | Encounter Summary ---
Demographics + + + | Address | [address] | | | [place] [address] | + + + | Home Phone | | + + + | Preferred Language | Unknown | + + + | Marital Status | | + + + | Oriental Orthodox Affiliation | 1041 | + + + | Race | Unknown | + + + | Ethnic Group | Unknown | + + + Author + + + | Author | [facility] | | | and [place] | + + + | Organization | [facility] | | | and [place] | + + + | Address | Unknown | + + + | Phone | Unavailable | + + + Support + + + + + | Name | Relationship | Address | Phone | + + + + + | Shlomo Holliday | ECON | [address] | | | | | [place] | | | | | [address] | | + + + + + Care Team Providers + +------+ + | Care Sweatband Decorating Machine Operator Name | Role | Phone | + +------+ + PCP | Unavailable | + +------+ + Encounter Details +--------+ + + + + | Date | Type | Department | Care Team | Description | +--------+ + + + + | 10/29/ | Hospital | [facility] | [facility] | | | 2009 | Encounter | [facility] | [address] | | | | | CENTER [address] | [address] | | | | | [address] [place], [place] | [place] [address] | | | | | [address] | [phone] | | | | | [phone] | | | +--------+ + + + [...]
--- OUTSIDE RECORDS SUMMARY | ~2019-05-02 | XMS | Encounter Summary ---
Demographics + + + | Address | [address] | | | [place] [address] | + + + | Home Phone | | + + + | Preferred Language | Unknown | + + + | Marital Status | | + + + | Anglican Affiliation | NON | + + + | Race | or | + + + | Ethnic Group | Not or | + + + Author + + + | Author | [facility] | + + + | Organization | [facility] | + + + | Address | Unknown | + + + | Phone | Unavailable | + + + Support + + +---------+ + | Name | Relationship | Address | Phone | + + +---------+ + | Shlomo Holliday | ECON | Unknown | | + + +---------+ + Care Team Providers + +------+ + | Care Supervising Architect Name | Role | Phone | + +------+ + | Francisco Estrada | PCP | Unavailable | + +------+ + Reason for Visit + + + | Reason | Comments | + + + | Postoperative visit | right hand carpal tunnel to weeks ago/no complaints | + + + Encounter Details +--------+---------+ + + + | Date | Type | Department | Care Team | Description | +--------+---------+ + + + | 12/31/ | Office | Neurosurgery 3250 | Claude Leblanc, | Carpal Tunnel | | 2005 | Visit | [facility] | [facility] [address] | Syndrome (Primary | | | | Rd Mailcode:OP14B | [place], [place] | Dx) | | | | [place] | [id number] | | | | | [place], [place] | | | | | | [address] | | | | | | [phone] | | | +--------+---------+ + + + Social History + +-------+ [...] + + documented as of this encounter Patient Instructions Patient Instructions 12/31/2005 10:00 AM PDT Keep incision clean and dry until steri-strips fall off. Call the clinic for any signs of infection or any other concern. documented in this encounter Progress Notes Claude Leblanc - 12/31/2005 9:52 AM PDT50 y.o. male 2 weeks s/p right CTR. Doing well wit h decreasing paresthesias in the thumb, index, middle and ring fingers. Denies difficulty w ith management of the incision. PE: A&O times 3. NAD. Incision well-healed. Persistent paresthesias in the right middle finger, O/W improved. Sutures were removed without difficulty and steri-strips were placed. These should remain i n place for the next 3-5 days. The patient would like to return to work on January 21, 2006. A note was written in to t his effect. There was discussion of drawing a Growth Hormone level due to patient's body habitus, cande flores, he declined the test today. This can be discussed with his PCP at a later date. documented in this encount er Plan of Treatment Not on filedocumented as of this encounter Visit Diagnoses + + | Diagnosis | + + | Carpal tunnel syndrome - Primary | + + documented in this encounter"
--- OUTSIDE RECORDS SUMMARY | ~2019-05-02 | XMS | Encounter Summary ---
Demographics + + + | Address | [address] | | | [place] [address] | + + + | Home Phone | | + + + | Preferred Language | Unknown | + + + | Marital Status | | + + + | Presybeterian Affiliation | 1041 | + + + | Race | Unknown | + + + | Ethnic Group | Unknown | + + + Author + + + | Author | [facility] | | | and [place] | + + + | Organization | [facility] | | | and [place] | + + + | Address | Unknown | + + + | Phone | Unavailable | + + + Support + + + + + | Name | Relationship | Address | Phone | + + + + + | Shlomo Holliday | ECON | [address] | | | | | [place] | | | | | [address] | | + + + + + Care Team Providers + +------+ + | Care Registered Diet Technician Name | Role | Phone | + +------+ + | Manjit Patterson PCP | | + +------+ + Encounter Details +--------+ + + + + | Date | Type | Department | Care Team | Description | +--------+ + + + + | 11/26/ | Orders Only | [facility] | Provider, | | | 2018 | | SYSTEM GENERIC OP | MD Day 1800 | | | | | CONVERSION [address] | [address] | | | | | [address] [place], [place] | [place] [address] | | | | | [address] | | | | | | [phone] | | | +--------+ + + + [...]
--- OUTSIDE RECORDS SUMMARY | ~2019-05-02 | XMS | Encounter Summary ---
Demographics + + + | Address | [address] | | | [place] [address] | + + + | Home Phone | | + + + | Preferred Language | Unknown | + + + | Marital Status | | + + + | Hindu Affiliation | NON | + + + [...] Team Providers + +------+ + | Care Client Server Developer Name | Role | Phone | + +------+ + PCP | Unavailable | + +------+ + Encounter Details +--------+ + + + + | Date | Type | Department | Care Team | Description | +--------+ + + + + | 11/06/ | ED Progress | [facility] | Report, Emergency | ED Progress Note | | 2005 | | MEDICINE | Services | | | | Note-Transc | | | | | | ribed | | | | +--------+ + + [...]
--- OUTSIDE RECORDS SUMMARY | ~2019-05-02 | XMS | Encounter Summary ---
Demographics + + + | Address | [address] | | | [place] [address] | + + + | Home Phone | | + + + | Preferred Language | Unknown | + + + | Marital Status | | + + + | Hindu Affiliation | 1041 | + + + | Race | Unknown | + + + | Ethnic Group | Unknown | + + + Author + + + | Author | [facility] | | | and [place] | + + + | Organization | [facility] | | | and [place] | + + + | Address | Unknown | + + + | Phone | Unavailable | + + + Support + + + + + | Name | Relationship | Address | Phone | + + + + + | Shlomo Holliday | ECON | [address] | | | | | [place] | | | | | [address] | | + + + + + Care Team Providers + +------+ + | Care Dough Raiser Name | Role | Phone | + +------+ + | Manjit Patterson PCP | | + +------+ + Encounter Details +--------+ + + + + | Date | Type | Department | Care Team | Description | +--------+ + + + + | 11/26/ | Orders Only | [facility] | Provider, | | | 2018 | | SYSTEM GENERIC OP | MD Day 1800 | | | | | CONVERSION [address] | [address] | | | | | [address] [place], [place] | [place] [address] | | | | | [address] | | | | | | [phone] | | | +--------+ + + + [...]
--- OUTSIDE RECORDS SUMMARY | ~2019-05-02 | XMS | Encounter Summary ---
Demographics + + + | Address | [address] | | | [place] [address] | + + + | Home Phone [...] Team Providers + +------+ + | Care Loan Processing Supervisor Name | Role | Phone | + +------+ + PCP | Unavailable | + +------+ + Encounter Details +--------+ + + + + | Date | Type | Department | Care Team | Description | +--------+ + + + + | 11/12/ | Results | | Senia Alicea MD | | | 2004 | Only | | [address] | | | | | | [place] [address] | | | | | | [phone] | | | | | | | [...] X-RAY CHEST 2 VIEW | Routin | 11/12/2004 | | Results for this | | | e | 2:07 PM | | procedure are in the | | | | PDT | | results section. | + +--------+ + + + documented in this encounter Results CHEST 2 VIEW (11/12/2004 2:07 PM PDT) + + + + + + | Component | Value | Ref Range | Performed | Pathologist | | | | | At | Signature | + + + + + + | CHEST, 2 | Radiologist 1: DOBOS, | | | | | VIEWS [place] | JAMES, MDPA and lateral | | | | | STEREO | chest. Comparison | | | | | | yesterday. No definite | | | | | | pneumothorax. Seen. | | | | | | Postsurgical changes | | | | | | followingright | | | | | | thoracotomy and partial | | | | | | rib resection are noted. | | | | | | There isstable | | | | | | loculated right pleural | | | | | | effusion and pleural | | | | | | thickening.Left lung | | | | | | grossly clear. Heart | | | | | | is mildly enlarged. | | | | | | CONCLUSION: 1. No | | | | | | definite pneumothorax. | | | | + + + + + + + + | Specimen | + + | | + + + +---------+ + + | Performing | Address | City/State/Zipcode | Phone Number | | Organization | | | | + +---------+ + + | [facility] DEPARTMENT | | | | | RADIOLOGY | | | | + +---------+ + + documented in this encounter Visit Diagnoses Not on filedocumented in this encounter"
--- OUTSIDE RECORDS SUMMARY | ~2019-05-02 | XMS | Encounter Summary ---
Demographics + + + | Address | [address] | | | [place] [address] | + + + | Home Phone | | + + + | Preferred Language | Unknown | + + + | Marital Status | | + + + | Zoroastrian Affiliation | NON | + + + | Race | or | + + + | Ethnic Group | Not or | + + + Author + + + | Author | [facility] | + + + | Organization | [facility] | + + + | Address | Unknown | + + + | Phone | Unavailable | + + + Support + + +---------+ + | Name | Relationship | Address | Phone | + + +---------+ + | Shlomo Holliday | ECON | Unknown | | + + +---------+ + Care Team Providers + +------+ + | Care Concrete Conveyor Operator Name | Role | Phone | + +------+ + | Francisco Estrada PCP | Unavailable | + +------+ + Encounter Details +--------+ + + + + | Date | Type | Department | Care Team | Description | +--------+ + + + + | 11/19/ | Ancillary | Registration [address] | [address], | | | 2005 | Registratio | DEMARCUS Villavicencio MD | | | | n | Adri[address] Mailcode: [id number] | | | | | | [place], [place] | | | | | | [address] | | | | | | [phone] | | | +--------+ + + + [...]
--- OUTSIDE RECORDS SUMMARY | ~2019-05-02 | XMS | Encounter Summary ---
Demographics + + + | Address | [address] | | | [place] [address] | + + + | Home Phone | | + + + | Preferred Language | Unknown | + + + | Marital Status | | + + + | Restorationism Affiliation | NON | + + + | Race | or | + + + | Ethnic Group | Not or | + + + Author + + + | Author | [facility] | + + + | Organization | [facility] | + + + | Address | Unknown | + + + | Phone | Unavailable | + + + Support + + +---------+ + | Name | Relationship | Address | Phone | + + +---------+ + | Shlomo Holliday | ECON | Unknown | | + + +---------+ + Care Team Providers + +------+ + | Care Dispatcher Bus And Trolley Name | Role | Phone | + [...] [id number] | | | | | | [place], [place] | | | | | | [address] | | | | | | [phone] | | | +--------+ + + + [...] Performed At | + + + | [id number] Estimated GFR > 60 mL/min/1.73 sq m if non- | [facility] | | [id number] Estimated GFR > 60 mL/min/1.73 sq m [...] | + + + + + | [facility] DEPARTMENT OF | [address] | [place] [address] | | | PATHOLOGY | [address] | | | + + + + + | [facility] DEPARTMENT OF | [address] | [place] [address] | | | PATHOLOGY | [address] [...] | + + + + + | [facility] | [address] | [place] [address] | | | PATHOLOGY | [address] | | | + + + + + | [facility] | [address] | [place] [address] | | | PATHOLOGY | [address] | | | + + + + + documented in this encounter Visit Diagnoses Not on filedocumented in this encounter"
--- OUTSIDE RECORDS SUMMARY | ~2019-05-02 | XMS | Encounter Summary ---
Demographics + + + | Address | [address] | | | [place] [address] | + + + | Home Phone | | + + + | Preferred Language | Unknown | + + + | Marital Status | | + + + | Zoroastrianism Affiliation | 1041 | + + + | Race | Unknown | + + + | Ethnic Group | Unknown | + + + Author + + + | Author | [facility] | | | and [place] | + + + | Organization | [facility] | | | and [place] | + + + | Address | Unknown | + + + | Phone | Unavailable | + + + Support + + + + + | Name | Relationship | Address | Phone | + + + + + | Shlomo Holliday | ECON | [address] | | | | | [place] | | | | | [address] | | + + + + + Care Team Providers + +------+ + | Care Rf Engineer Name | Role | Phone | + [...] + + + | | | | Diagnoses | | Alexia, | | | | | Right wrist | | Macho Myles MD | | | | | pain | | [address] | | | | | Carpal | | [place], | | | | | tunnel | | [place] [address] | | | | | syndrome of | | Phone: | | | | | right wrist | | [phone] | | | | | Right | | Fax: | | | | | carpal | | [phone] | | | | | tunnel, | | | | | | | severe and | | | | | | | right wrist | | | | | | | tendonitis | | | | | | | Procedures | | | | | | | RELEASE | | | | | | | CARPAL | | | | | | | TUNNEL | | | | | | | REPAIR | | | | | | | TENDON | | | | | | | FINGER/HAND | | | +--------+--------+ + + + + Encounter Details +--------+ + + + + | Date | Type | Department | Care Team | Description | +--------+ + + + + | 12/30/ | Hospital | [facility] | | Right carpal tunnel | | 2019 | Encounter | [facility] | | syndrome (Primary | | | | [facility] | | Dx); Right wrist | | | | OP [address] | | pain; Right wrist | | | | [place] | | tendonitis | | | | [address] | | | | | | [phone] | | | +--------+ + + + [...] + + + | Blood Pressure | 121/89 | 12/30/2018 8:50 AM | | | | | PDT | | + + + + + | Pulse | 101 | 12/30/2018 8:50 AM | | | | | PDT | | + + + + + | Temperature | 36.2 C (97.1 F) | 12/30/2018 8:33 AM | | | | | PDT | | + + + + + | Respiratory Rate | 18 | 12/30/2018 8:50 AM | | | | | PDT | | + + + + + | Oxygen Saturation | 95% | 12/30/2018 8:50 AM | | | | | PDT | | + + + + + | Inhaled Oxygen | - | - | | | Concentration | | | | + + + + + | Weight | 134.7 kg (297 lb) | 12/30/2018 6:44 AM | | | | | PDT | | + + + + + | Height | 175.3 cm (5' 9") | 12/30/2018 6:44 AM | | | | | PDT | | + + + + + | Body Mass Index | 43.86 | 12/30/2018 6:44 AM | | | | | PDT | | + + + + + documented in this encounter Discharge Summaries Macho Hale MD - 12/30/2018 8:43 AM [facility] Same Day Surgery: Brief Post Op Discharge Note Post Procedure Discharge Note; See Operative Note for details Marshall Holliday Age/Gender 63 y.o. male Location [facility] OP Attending No att. providers found Hosp Day # 0 PCP Manjit Patterson DO Discharge Date: 12/30/2018 Hospital Problem List: Active Problems: * No active hospital problems. * Final Diagnosis: Right CTS and synovitis Discharge Meds: Resume pre-admit medications without exceptions or additions See Orders Discharge Instructions: See separate Discharge Instruction document; provided to patient/f amily Disposition: home Follow-Up: No follow-up provider specified. Condition at Discharge: He will be discharged when he is ready per nursing protocol. See n ursing notes regarding actual condition at discharge. Macho Hale MD 8:43; 12/30/2018 cc: documented in this en counter Discharge Instructions Instructions Olimpia Beltran RN - 12/30/2018Macho Hale MD Postoperative Instru ctions As you recover from surgery here are instructions to aid the healing process and keep you s afe. Diet Regular diet, or your diet specified by your primary care provider. Begin with elle ar liquids and advance to solids as you tolerate. No alcoholic beverages on the day of surge ry. Also, please AVOID smoking as this can significantly delay the healing process. Activity Keep the operative extremity above the level of your heart for the next 5 days . Please avoid shoulder slings as these place your hand/wrist below the level of your heart BLOCK MAY LAST AROUND 10-12 HOURS; USE SLING UNTIL ELBOW CONTROL RETURNS THEN DISCARD Dressing/Surgery site Please keep your dressing clean and dry. You may NOT remove your dressing. You may shower tomorrow but please keep your wound/dressing covered and dry Pain medicine Take pain medicine PRN or as needed. Try to wean yourself gradually off pain medicine over several days. Do NOT drink alcohol or take sleeping medicines while on narcotics. You should take pain medicine with food to avoid nausea. In addition, pain med icine may cause constipation. Please drink plenty of fluids and take a laxative of your simon ce (over the counter) as needed. After surgery Slight swelling, pain and some bruising may occur after surgery. Please contact my office if any of the following occur: sustained temperature over 101.5?F, excessi ve bleeding, rapidly increasing numbness, inability to urinate within 8 hours, progressively increasing pain not relieved by pain medicines, signs of a wound infection (increased redne ss, swelling, pus drainage), or excessive swelling/tightness. Office appointment Please return to my office in 10-14 days for a dressing change. Call with any questions or to schedule/re-schedule an appointment. I look forward to seeing you. Provision for after-hours and emergency care: If you have an emergency such as chest pain or shortness of breath please call [phone] If you need the doctor after hours or on the weekends, please refer to the phone number bel ow. For [facility] offices located on [address] [facility] and on [address] [place] [address] please call . This will take you to an answering service, who will then get you in contact with a medical professional. documented in this encounter Medications at Time of Discharge + + + +---------+ + + | Medication | Sig | Dispensed | Refills | Start | End Date | | | | | | Date | | + + + +---------+ + + | acetaminophen | Take 325 mg by mouth | | 0 | | | | (TYLENOL) 325 mg | every 6 (six) hours | | | | | | tablet | as needed for Pain. | | | | | + + + +---------+ + + | allopurinol | Take 100 mg by mouth | | 0 | | | | (ZYLOPRIM) 100 mg | daily. | | | | | | tablet | | | | | | + + + +---------+ + + | aspirin 81 mg EC | Take 81 mg by mouth | | 0 | | | | tablet | Daily. | | | | | + + + +---------+ + + | fenofibrate | Take 160 mg by mouth | | 0 | | | | (LOFIBRA, TRIGLIDE) | Daily. | | | | | | 160 mg tablet | | | | | | + + + +---------+ + + | fexofenadine | Take 180 mg by mouth | | 0 | | | | (EVIN) 180 mg | Daily. | | | | | | tablet | | | | | | + + + +---------+ + + | fluticasone | 2 sprays by Nasal | | 0 | | | | (FLONASE) 50 | route as needed. | | | | | | mcg/nasal spray | | | | | | + + + +---------+ + + | glipiZIDE | Take 5 mg by mouth | | 0 | | | | (GLUCOTROL) 5 mg | every morning | | | | | | tablet | (before breakfast). | | | | | + + + +---------+ + + | | Take 1 tablet by | 10 | 0 | 12/31/19 | | | HYDROcodone-acetamin | mouth EVERY 4 TO 6 | tablet | | 19 | | | ophen (NORCO) 5-325 | HOURS NEEDED for | | | | | | mg per tablet | Pain. | | | | | + + + +---------+ + + | insulin glargine | Inject 57 Units into | | 0 | | | | (LANTUS) 100 | the skin. Take as | | | | | | units/mL injection | directed.PT. STATES | | | | | | (vial) | BID 57 UNITS. | | | | | + + + +---------+ + + | Liraglutide | Inject under the | | 0 | | | | (VICTOZA SC) | skin. 1.8 MG DOSE IN | | | | | | | AM | | | | | + + + +---------+ + + | metFORMIN | Take 500 mg by mouth | | 0 | | | | (GLUCOPHAGE) 500 mg | 4 (four) times | | | | | | tablet | daily with meals and | | | | | | | nightly. | | | | | + + + +---------+ + + | ondansetron | Take 1 tablet by | 24 | 0 | 12/31/19 | | | (ZOFRAN ODT) 4 mg | mouth every 8 hours | tablet | | 19 | | | disintegrating | as needed for | | | | | | tablet | Nausea. | | | | | + + + +---------+ + + | PARoxetine (PAXIL) | Take 40 mg by mouth. | | 0 | | | | 40 MG tablet | | | | | | + + + +---------+ + + | pseudoePHEDrine | Take 60 mg by mouth | | 0 | | | | (SUDAFED) 60 MG | Twice daily as | | | | | | tablet | needed. | | | | | + + + +---------+ + + | rosuvastatin | Take 20 mg by mouth | | 0 | | | | (CRESTOR) 20 mg | nightly. | | | | | | tablet | | | | | | + + + +---------+ + + | | Take 2 tablets by | | 0 | | | | sitagliptan-metFORMI | mouth Daily. | | | | | | N (JANUMET) 50-1000 | | | | | | | MG per tablet | | | | | | + + + +---------+ + + | tamsulosin | Take 0.4 mg by mouth | | 0 | | | | (FLOMAX) 0.4 mg CAPS | daily (after | | | | | | | breakfast). | | | | | + + + +---------+ + + documented as of this encounter Progress Notes Capo Salgado DO - 01/01/2019 11:56 AM PDTCalled for f/u 01/01/19 ([id number]), voice mail box not set up. aysinger, Gordo Salazar RN - 12/30/2018 8:54 AM PDTPrescription Rx and discharge information given to , at bedside, all questions answered. documented in th is encounter Plan of Treatment Not on filedocumented as of this encounter Procedures + +--------+ + + + | Procedure Name | Priori | Date/Time | Associated Diagnosis | Comments | | | ty | | | | + +--------+ + + + | POCT GLUCOSE | Routin | 12/30/2018 | | Results for this | | | e | 8:42 AM | | procedure are in the | | | | PDT | | results section. | + +--------+ + + + | REPAIR TENDON FINGER | | 12/30/2018 | Right wrist pain | | | / HAND | | 7:34 AM | Carpal tunnel | | | | | PDT | syndrome of right | | | | | | wrist | | + +--------+ + + + +---+--------+ | | Case | | | Notes | | | | | | Right | | | carpal | | | | | | tunnel | | | | | | releas | | | e, | | | tendon | | | | | | transf | | | er and | | | ulnar | | | sided | | | wrist | | | | | | tendon | | | | | | debrid | | | ement | +---+--------+ | | | | | Specia | | | l | | | Needs | | | IDDM | +---+--------+ + +---+ + +---+ | RELEASE CARPAL | | 12/30/2018 | Right wrist pain | | | TUNNEL | | 7:34 AM | Carpal tunnel | | | | | PDT | syndrome of right | | | | | | wrist | | + +---+ + +---+ +---+--------+ | | Case | | | Notes | | | | | | Right | | | carpal | | | | | | tunnel | | | | | | releas | | | e, | | | tendon | | | | | | transf | | | er and | | | ulnar | | | sided | | | wrist | | | | | | tendon | | | | | | debrid | | | ement | +---+--------+ | | | | | Specia | | | l | | | Needs | | | IDDM | +---+--------+ + +--------+ +---+ + | POCT GLUCOSE | Routin | 12/30/2018 | | Results for this | | | e | 6:57 AM | | procedure are in the | | | | PDT | | results section. | + +--------+ +---+ + documented in this encounter Results POCT Glucose (12/30/2018 8:42 AM PDT) + + + + + + | Component | Value | Ref Range | Performed | Pathologist | | | | | At | Signature | + + + + + + | Glucose, | 214 (A)Comment: post op | 70 - 105 mg/dL | | | | POC | | | | | + + + + + + POCT Glucose (12/30/2018 6:57 AM PDT) + +---------+ + + + | Component | Value | Ref Range | Performed | Pathologist | | | | | At | Signature | + +---------+ + + + | Glucose, WB | 249 (A) | 65 - 99 mg/dL | | | + +---------+ + + + + + | Specimen | + + | Blood | + + documented in this encounter Visit Diagnoses + + | Diagnosis | + + | Right carpal tunnel syndrome - Primary Carpal tunnel syndrome | + + | Right wrist pain Pain in joint, forearm | + + | Right wrist tendonitis | + + documented in this encounter Administered Medications + +--------+ +------+------+------+ | Medication Order | MAR | Action | Dose | Rate | Site | | | Action | Date | | | | + +--------+ +------+------+------+ | midazolam (VERSED) 1 mg/mL | Given | 12/31/19 | 2 mg | | | | injection 1-2 mg 1-2 mg, | | 19 7:19 | | | | | Intravenous, ONCE, 12/30/18 at | | AM PDT | | | | | 0700, For 1 dose, PRE OP FOR | | | | | | | BLOCK, Pre-op | | | | | | + +--------+ +------+------+------+ +---+---+ | | | +---+---+ documented in this encounter
--- OUTSIDE RECORDS SUMMARY | ~2019-05-02 | XMS | Encounter Summary ---
Demographics + + + | Address | [address] | | | [place] [address] | + + + | Home Phone | | + + + | Preferred Language | Unknown | + + + | Marital Status | | + + + | Yazdanism Affiliation | NON | + + + | Race | or | + + + | Ethnic Group | Not or | + + + Author + + + | Author | [facility] | + + + | Organization | [facility] | + + + | Address | Unknown | + + + | Phone | Unavailable | + + + Support + + +---------+ + | Name | Relationship | Address | Phone | + + +---------+ + | Shlomo Holliday | ECON | Unknown | | + + +---------+ + Care Team Providers + +------+ + | Care Kettle Coordinator Name | Role | Phone | + +------+ + | Francisco Estrada PCP | Unavailable | + +------+ + Encounter Details +--------+ + + + + | Date | Type | Department | Care Team | Description | +--------+ + + + + | 09/24/ | Results | Neurosurgery [address] | [address]eria, | | | 2005 | Only | [address] Villavicencio MD | | | | | [address] Mailcode:[id number] | | | | | | [place] | | | | | | [place], [place] | | | | | | [address] | | | | | | [phone] | | | +--------+ + + + [...] as of this encounter Plan of Treatment + +---------+--------+ + + | Name | Type | Priori | Associated Diagnoses | Date/Time | | | | ty | | | + +---------+--------+ + + | MRI OUTSIDE FILMS | Imaging | Routin | | 09/24/2005 12:00 AM | | | | e | | PDT | + +---------+--------+ + + documented as of this encounter Visit Diagnoses Not on filedocumented in this encounter"
--- OUTSIDE RECORDS SUMMARY | ~2019-05-02 | XMS | Encounter Summary ---
Demographics + + + | Address | [address] | | | [place] [address] | + + + | Home Phone | | + + + | Preferred Language | Unknown | + + + | Marital Status | | + + + | Temple Affiliation | NON | + + + | Race | or | + + + | Ethnic Group | Not or | + + + Author + + + | Author | [facility] | + + + | Organization | [facility] | + + + | Address | Unknown | + + + | Phone | Unavailable | + + + Support + + +---------+ + | Name | Relationship | Address | Phone | + + +---------+ + | Shlomo Holliday | ECON | Unknown | | + + +---------+ + Care Team Providers + +------+ + | Care Clerk Entry Level Name | Role | Phone | + [...] Mailcode:OP14B | | | | | | [place] [facility] | | | | | | [place], [place] | | | | | | [address] | | | | | | [phone] | | | +--------+ + + + [...]
--- OUTSIDE RECORDS SUMMARY | ~2019-05-02 | XMS | Encounter Summary ---
Demographics + + + | Address | [address] | | | [place] [address] | + + + | Home Phone | | + + + | Preferred Language | Unknown | + + + | Marital Status | | + + + | Caodaism Affiliation | 1041 | + + + | Race | Unknown | + + + | Ethnic Group | Unknown | + + + Author + + + | Author | [facility] | | | and [place] | + + + | Organization | [facility] | | | and [place] | + + + | Address | Unknown | + + + | Phone | Unavailable | + + + Support + + + + + | Name | Relationship | Address | Phone | + + + + + | Shlomo Holliday | ECON | [address] | | | | | [place] | | | | | [address] | | + + + + + Care Team Providers + +------+ + | Care Machine Heel Seat Fitter Name | Role | Phone | + [...] | | | Carpal | | [place], | | | | | tunnel | | [place] [address] | | | | | syndrome of | | Phone: | | | | | right wrist | | [phone] | | | | | Right | | Fax: | | | | | carpal | | [phone] | | | | | tunnel, | [...] +--------+--------+ + + + + Encounter Details +--------+---------+ + + + | Date | Type | Department | Care Team | Description | +--------+---------+ + + + | 08/27/ | Surgery | [facility] | Macho Hale, | [facility] | | 2019 | | [facility] | MD [address] | TUNNEL | | | | [facility] | [place] [address] | | | | | OP [address] | [phone] | | | | | [place], [place] | | | | | | [address] | | | | | | [phone] | | | +--------+---------+ + + + [...] Macho Hale MD - 12/30/2018 8:43 AM [facility] Same Day Surgery: Brief Post Op Discharge Note Post Procedure Discharge Note; See Operative Note for details Marshall Holliday Age/Gender 63 y.o. male Location [facility] OP Attending No att. providers found Hosp Day # 0 PCP Manjit Patterson DO Discharge Date: 12/30/2018 Hospital Problem List: Active Problems: * No active hospital problems. * Final Diagnosis: Right CTS and synovitis Discharge Meds: Resume pre-admit medications without exceptions or additions See Orders Discharge Instructions: See separate Discharge Instruction document; provided to patient/f michelley Disposition: home Follow-Up: No follow-up provider specified. [...] weekends, please refer to the phone number Cream.[email or web address]. For [facility] offices located on [address] [facility] and on [address] [place] [address] please call . This will take you [...] | | | | | | N (JOHN) [id number] | | | | | | [...] 01/01/2019 11:56 AM PDTCalled for f/u 01/01/19 (1155), voice mail box not set up. Gordo Herron RN - 12/30/2018 8:54 AM PDTPrescription Rx [...] in joint, forearm | + + | Carpal tunnel syndrome of right wrist Carpal tunnel syndrome | + + documented in this encounter [...]
--- OUTSIDE RECORDS SUMMARY | ~2019-05-02 | XMS | Encounter Summary ---
Demographics + + + | Address | [address] | | | [place] [address] | + + + | Home Phone | | + + + | Preferred Language | Unknown | + + + | Marital Status | | + + + | Cheondoism Affiliation | NON | + + + [...] Team Providers + +------+ + | Care Wax Pattern Coater Name | Role | Phone | + [...] Mailcode:OP14B | | | | | | [place] [facility] | | | | | | [place], [place] | | | | | | [address] | | | | | | [phone] | | | +--------+ + + + [...]
--- OUTSIDE RECORDS SUMMARY | ~2019-05-02 | XMS | Clinical Summary ---
Demographics + + + | Address | [address] | | | [place] [address] | + + + | Home Phone | | + + + | Preferred Language | Unknown | + + + | Marital Status | | + + + | Taoism Affiliation | 1041 | + + + | Race | Unknown | + + + | Ethnic Group | Unknown | + + + Author + + + | Author | [facility] | | | and [place] | + + + | Organization | [facility] | | | and [place] | + + + | Address | Unknown | + + + | Phone | Unavailable | + + + Support + + + + + | Name | Relationship | Address | Phone | + + + + + | Shlomo Holliday | ECON | [address] | | | | | [place] | | | | | [address] | | + + + + + Care Team Providers + +------+ + | Care Candy Bar Attendant Name | Role | Phone | + +------+ + | Manjit Patterson DO | PCP | | + +------+ + Allergies + + + + + + | Active Allergy | Reactions | Severity | Noted | Comments | | | | | Date | | + + + + + + | Bee Venom | Anaphylaxis | High | 10/12/19 | PT. STATES | | | | | 17 | RECENTLY STUNG BY | | | | | | BEE-NO SUBSEQUENT | | | | | | PROBLEM. | + + + + + + Medications + + + +---------+------+------+-------+ | Medication | Sig | Dispensed | Refills | Star | End | Statu | | | | | | t | Date | s | | | | | | Date | | | + + + +---------+------+------+-------+ | aspirin 81 mg EC | Take 81 mg by mouth | | 0 | | | Activ | | tablet | Daily. | | | | | e | + + + +---------+------+------+-------+ | fenofibrate | Take 160 mg by mouth | | 0 | | | Activ | | (LOFIBRA, TRIGLIDE) | Daily. | | | | | e | | 160 mg tablet | | | | | | | + + + +---------+------+------+-------+ | fexofenadine | Take 180 mg by mouth | | 0 | | | Activ | | (EVIN) 180 mg | Daily. | | | | | e | | tablet | | | | | | | + + + +---------+------+------+-------+ | fluticasone | 2 sprays by Nasal | | 0 | | | Activ | | (FLONASE) 50 | route as needed. | | | | | e | | mcg/nasal spray | | | | | | | + + + +---------+------+------+-------+ | glipiZIDE | Take 5 mg by mouth | | 0 | | | Activ | | (GLUCOTROL) 5 mg | every morning | | | | | e | | tablet | (before breakfast). | | | | | | + + + +---------+------+------+-------+ | pseudoePHEDrine | Take 60 mg by mouth | | 0 | | | Activ | | (SUDAFED) 60 MG | Twice daily as | | | | | e | | tablet | needed. | | | | | | + + + +---------+------+------+-------+ | | Take 2 tablets by | | 0 | | | Activ | | sitagliptan-metFORMI | mouth Daily. | | | | | e | | N (JANUMET) 50-1000 | | | | | | | | MG per tablet | | | | | | | + + + +---------+------+------+-------+ | tamsulosin | Take 0.4 mg by mouth | | 0 | | | Activ | | (FLOMAX) 0.4 mg CAPS | daily (after | | | | | e | | | breakfast). | | | | | | + + + +---------+------+------+-------+ | Liraglutide | Inject under the | | 0 | | | Activ | | (VICTOZA SC) | skin. 1.8 MG DOSE IN | | | | | e | | | AM | | | | | | + + + +---------+------+------+-------+ | acetaminophen | Take 325 mg by mouth | | 0 | | | Activ | | (TYLENOL) 325 mg | every 6 (six) hours | | | | | e | | tablet | as needed for Pain. | | | | | | + + + +---------+------+------+-------+ | metFORMIN | Take 500 mg by mouth | | 0 | | | Activ | | (GLUCOPHAGE) 500 mg | 4 (four) times | | | | | e | | tablet | daily with meals and | | | | | | | | nightly. | | | | | | + + + +---------+------+------+-------+ | allopurinol | Take 100 mg by mouth | | 0 | | | Activ | | (ZYLOPRIM) 100 mg | daily. | | | | | e | | tablet | | | | | | | + + + +---------+------+------+-------+ | insulin glargine | Inject 57 Units into | | 0 | | | Activ | | (LANTUS) 100 | the skin. Take as | | | | | e | | units/mL injection | directed.PT. STATES | | | | | | | (vial) | BID 57 UNITS. | | | | | | + + + +---------+------+------+-------+ | PARoxetine (PAXIL) | Take 40 mg by mouth. | | 0 | | | Activ | | 40 MG tablet | | | | | | e | + + + +---------+------+------+-------+ | rosuvastatin | Take 20 mg by mouth | | 0 | | | Activ | | (CRESTOR) 20 mg | nightly. | | | | | e | | tablet | | | | | | | + + + +---------+------+------+-------+ | | Take 1 tablet by | 10 | 0 | 08/2 | | Activ | | HYDROcodone-acetamin | mouth EVERY 4 TO 6 | tablet | | 7/20 | | e | | ophen (NORCO) 5-325 | HOURS NEEDED for | | | 19 | | | | mg per tablet | Pain. | | | | | | + + + +---------+------+------+-------+ | ondansetron | Take 1 tablet by | 24 | 0 | 08/2 | | Activ | | (ZOFRAN ODT) 4 mg | mouth every 8 hours | tablet | | 7/20 | | e | | disintegrating | as needed for | | | 19 | | | | tablet | Nausea. | | | | | | + + + +---------+------+------+-------+ Active Problems + + | Patient Care Coordination Note | + + | Patient referred by Rita Sampson PA-C at [facility]. F | | [phone] | + + + + + | Problem | Noted Date | + + + | Class 3 severe obesity due to excess calories with serious | 10/01/2018 | | comorbidity in adult | | + + + | Controlled type 2 diabetes mellitus with complication, without | 10/01/2018 | | long-term current use of insulin | | + + + | HLD (hyperlipidemia) | 10/01/2018 | + + + | HTN (hypertension) | 10/01/2018 | + + + | Right wrist pain | 06/20/2018 | + + + | Right carpal tunnel syndrome | 05/27/2018 | + + + Encounters +--------+ + + + + | Date | Type | Specialty | Care Team | Description | +--------+ + + + + | 03/18/ | Telephone | Orthopedic Surgery | Macho Hale, | Other (Therapy chart | | 2018 | | | MD | note) | +--------+ + + + + from Last 3 Months Family History + + +------+ + | Medical History | Relation | Name | Comments | + + +------+ + | Diabetes, NIDDM | Mother | | | + + +------+ + + +------+ + + | Relation | Name | Status | Comments | + +------+ + + | Father | | | | + +------+ + + | Mother | | | | + +------+ + + | Mother | | | | + +------+ + + Social History + +-------+ +--------+------+ [...] recent travel history available. | + + Last Filed Vital Signs + + + + + | Vital Sign | Reading | Time Taken | Comments | + + + + + | Blood Pressure | 121/89 | 12/30/2018 8:50 AM | | | | | PDT | | + + + + + | Pulse | 109 | 01/14/2019 9:12 AM | | | | | PDT [...] + + + | Oxygen Saturation | 96% | 01/14/2019 9:12 AM | | | | | PDT | | + + + + + | Inhaled Oxygen | - | - | | | Concentration | | | | + + + + + | Weight | 134.3 kg (296 lb) | 01/14/2019 9:12 AM | | | | | PDT | | + + + + + | Height | 175.3 cm (5' 9") | 01/14/2019 9:12 AM | | | | | PDT | | + + + + + | Body Mass Index | 43.71 | 01/14/2019 9:12 AM | | | | | PDT | | + + + + + Plan of Treatment + + + + + | Health Maintenance | Due Date | Last Done | Comments | + + + + + | Hepatitis C | | | | | Screening | 3 | | | + + + + + | Diabetic Eye Exam | | | | | | 1 | | | + + + + + | Diabetic Foot Exam | | | | | | 1 | | | + + + + + | Hemoglobin A1c | | | | | Screening | 1 | | | + + + + + | Colorectal Cancer | | | | | Screening | 3 | | | | (Colonoscopy) | | | | + + + + + | Vaccine: Zoster (2 | | 09/03/2013 | | | of 3) | 4 | | | + + + + + | Vaccine: | | | | | Pneumococcal 65+ (1 | 8 | | | | of 2 - PCV13) | | | | + + + + + | Adult Annual | | | | | Wellness Visit | 9 | | | + + + + + | Microalbumin | | | | | Screening | 9 | | | + + + + + | Vaccine: Influenza | | 02/06/2018, 02/25/2017, | | | (#1) | 9 | 01/18/2016, Additional history | | | | | exists | | + + + + + | Vaccine: | | 03/12/2012, 11/06/2004, | | | Dtap/Tdap/Td (2 - | 2 | 11/16/1993 | | | Td) | | | | + + + + + Results Not on filefrom Last 3 Months Insurance + +--------+ +--------+-------+---------+--------+ | Payer | Benefi | Subscriber | Effect | Phone | Address | Type | | | t Plan | ID | melisa | | | | | | / | | Dates | | | | | | Group | | | | | | + +--------+ +--------+-------+---------+--------+ | [employer] | [employer] | [id number] | 02/13/ | | | Indemn | | SERVICE | YELLOW | | 1952-P | | | ity | | | HAWK | | resent | | | | + +--------+ +--------+-------+---------+--------+ | [employer] | [employer] | [id number] | 05/06/19 | | | Indemn | | SERVICE | YELLOW | | 16-Pre | | | ity | | | HAWK | | sent | | | | + +--------+ +--------+-------+---------+--------+ + +--------+ +--------+ + + | Guarantor Name | Accoun | Relation to | Date | Phone | Billing Address | | | t Type | Patient | of | | | | | | | | | | + +--------+ +--------+ + + | Marshall Holliday | Person | Self | [birth year] | | [address] | | [place] | al/Fam | | 1955 | [phone] | [place], [place] | | | daryn | | | 9 (Home) | [address] | + +--------+ +--------+ + + | Marshall Holliday | Person | Self | [birth year] | | [address] | | [place] | al/Fam | | 1955 | [phone] | [place], [place] | | | daryn | | | 9 (Home) | [address] | | | | | | [phone] | | | | | | | 0 (Work) | | + +--------+ +--------+ + + Advance Directives + + + + + | Type | Date Recorded | Patient | Explanation | | | | Trash Collector Supervisor | | + + + + + | Power of | | | | | Aniline Press Worker | | | | + + + + + | Advance | 02/07/2018 8:43 | | | | Directive | AM | | | + + + + +
--- OUTSIDE RECORDS SUMMARY | ~2019-05-02 | XMS | Encounter Summary ---
Demographics + + + | Address | [address] | | | [place] [address] | + + + | Home Phone | | + + + | Preferred Language | Unknown | + + + | Marital Status | | + + + | Confucianist Affiliation | NON | + + + [...] Providers + +------+ + | Care High School Director Name | Role | Phone | + +------+ + | Francisco Estrada | PCP | Unavailable | + +------+ + Encounter Details +--------+ + + + + | Date | Type | Department | Care Team | Description | +--------+ + + + + | 12/31/ | Abstract | Neurosurgery [address] | Claude Leblanc, | | | 2005 | EC[address] | [address] | [address] [facility] [address] | | | | | [address] Mailcode:OP14B | [place], [place] | | | | | [facility] | [address] | | | | | [place], [place] | | | | | | [address] | | | | | | [phone] | | | +--------+ + + + [...]
--- OUTSIDE RECORDS SUMMARY | ~2019-05-02 | XMS | Encounter Summary ---
Demographics + + + | Address | [address] | | | [place] [address] | + + + | Home Phone [...] Team Providers + +------+ + | Care Oyster Unloader Name | Role | Phone | + +------+ + | Francisco Estrada | PCP | Unavailable | + +------+ + Encounter Details +--------+ + + + + | Date | Type | Department | Care Team | Description | +--------+ + + + + | 12/31/ | Abstract | Neurosurgery 1880 | Claude Leblanc, | | | 2005 | ECX | [address] | [address] [facility] [address] | | | | | Rd Mailcode:OP14B | [place], [place] | | | | | [facility] | [address] | | | | | [place], [place] | | | | | | [address] | | | | | | [phone] | | | +--------+ + + + [...]
--- OUTSIDE RECORDS SUMMARY | ~2019-05-02 | XMS | Encounter Summary ---
Demographics + + + | Address | [address] | | | [place] [address] | + + + | Home Phone | | + + + | Preferred Language | Unknown | + + + | Marital Status | | + + + | Latter Day Affiliation | 1041 | + + + | Race | Unknown | + + + | Ethnic Group | Unknown | + + + Author + + + | Author | [facility] | | | and [place] | + + + | Organization | [facility] | | | and [place] | + + + | Address | Unknown | + + + | Phone | Unavailable | + + + Support + + + + + | Name | Relationship | Address | Phone | + + + + + | Shlomo Holliday | ECON | [address] | | | | | [place] | | | | | [address] | | + + + + + Care Team Providers + +------+ + | Care Rn Integrated Name | Role | Phone | + +------+ + | Manjit Patterson PCP | | + +------+ + Reason for Visit + + + | Reason | Comments | + + + | Request For Medical | [facility] for billing needs DOS 12/30/18 & 01/14/19 chart notes | | Records | | + + + Encounter Details +--------+ + + + + | Date | Type | Department | Care Team | Description | +--------+ + + + + | 01/19/ | Telephone | [facility] | Macoh Hale, | Request For Medical | | 2019 | | ORTHO SPORTS | MD [place] [address] | Records ([place] | | | | MEDICINE [place] | [place] [address] | for billing needs | | | | [place] [facility] | [phone] | DOS 12/30/18 & | | | | [place] | | 01/14/19 chart notes) | | | | [address] | | | | | | [phone] | | | +--------+ + + + [...]
--- OUTSIDE RECORDS SUMMARY | ~2019-05-02 | XMS | Encounter Summary ---
Demographics + + + | Address | [address] | | | [place] [address] | + + + | Home Phone | | + + + | Preferred Language | Unknown | + + + | Marital Status | | + + + | Adventist Affiliation | NON | + + + | Race | or | + + + | Ethnic Group | Not or | + + + Author + + + | Author | [facility] | + + + | Organization | [facility] | + + + | Address | Unknown | + + + | Phone | Unavailable | + + + Support + + +---------+ + | Name | Relationship | Address | Phone | + + +---------+ + | Shlomo Holliday | ECON | Unknown | | + + +---------+ + Care Team Providers + +------+ + | Care Fire Systems Inspector Name | Role | Phone | + [...] [id number] | | | | | | [place], [place] | | | | | | [address] | | | | | | [phone] | | | +--------+ + + + [...]
--- OUTSIDE RECORDS SUMMARY | ~2019-05-02 | XMS | Encounter Summary ---
Demographics + + + | Address | [address] | | | [place] [address] | + + + | Home Phone | | + + + | Preferred Language | Unknown | + + + | Marital Status | | + + + | Restorationism Affiliation | 1041 | + + + | Race | Unknown | + + + | Ethnic Group | Unknown | + + + Author + + + | Author | [facility] | | | and [place] | + + + | Organization | [facility] | | | and [place] | + + + | Address | Unknown | + + + | Phone | Unavailable | + + + Support + + + + + | Name | Relationship | Address | Phone | + + + + + | Shlomo Holliday | ECON | [address] | | | | | [place] | | | | | [address] | | + + + + + Care Team Providers + +------+ + | Care Soybean Grower Name | Role | Phone | + [...] | | | Carpal | | [address], | | | | | tunnel | | [place] [address] | | | | | syndrome of | | Phone: | | | | | right wrist | | [phone] | | | | | Right | | Fax: | | | | | carpal | | [phone] | | | | | tunnel, | [...] + + | 08/27/ | Surgery | [facility] | Macho Hale, | [facility] | | 2019 | | [facility]ENTER | MD [address] | TUNNEL | | | | [facility] | [place] [address] | | | | | OP [address] | [phone] | | | | | [place], [place] | | | | | | [address] | | | | | | [phone] | | | +--------+---------+ + + + [...] Macho Hale MD - 12/30/2018 8:43 AM [facility] Same Day Surgery: Brief Post Op Discharge Note Post Procedure Discharge Note; See Operative Note for details Marshall Holliday Age/Gender 63 y.o. male Location [facility] OP Attending No att. providers [...] weekends, please refer to the phone number Bujbu. For [facility] offices located on [address] [facility] and on [address] [place] [address] please call . This will take you [...]
--- OUTSIDE RECORDS SUMMARY | ~2019-05-02 | XMS | Encounter Summary ---
Demographics + + + | Address | [address] | | | [place] [address] | + + + | Home Phone | | + + + | Preferred Language | Unknown | + + + | Marital Status | | + + + | Mandaeism Affiliation | 1041 | + + + | Race | Unknown | + + + | Ethnic Group | Unknown | + + + Author + + + | Author | [facility] | | | and [place] | + + + | Organization | [facility] | | | and [place] | + + + | Address | Unknown | + + + | Phone | Unavailable | + + + Support + + + + + | Name | Relationship | Address | Phone | + + + + + | Shlomo Holliday | ECON | [address] | | | | | [place] | | | | | [address] | | + + + + + Care Team Providers + +------+ + | Care Quarantine Officer Name | Role | Phone | + +------+ + | Manjit Patterosn PCP | | + +------+ + Encounter Details +--------+ + + + + | Date | Type | Department | Care Team | Description | +--------+ + + + + | 12/19/ | Orders Only | [facility] | Macho Hale, | | | 2018 | | [address] | MD [address] | | | | [address] | [place] [address] | | | | | [place], [place] | [phone] | | | | | [address] | | | | | | [phone] | | | +--------+ + + + [...] | + +--------+ + + + | XR WRIST RIGHT 1 VW | Routin | 12/19/2018 | | Results for this | | LIMITED | e | 12:55 PM | | procedure are in the | | | | PDT | | results section. 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 No fracture | | | no dislocation. No significant DRUJ arthritis noted. | | | Electronically signed by: Macho Hale MD 12/19/2018 1:05 PM | | + + + + + + | Narrative | Performed At | + + + | INDICATION: Right wrist pain COMPARISON: None TECHNIQUE: | | | Multiple views of the right wrist FINDINGS: Right wrist shows mild | | | to moderate STT arthritis. No fracture no dislocation. No | | | significant DRUJ arthritis noted. 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 No fracture | | no dislocation. No significant DRUJ arthritis noted. 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 No | | fracture no dislocation. No significant DRUJ arthritis noted. | | | | | | Electronically signed by: Macho Hale MD 12/19/2018 1:05 PM | | | | | + + documented in this encounter Visit Diagnoses Not on filedocumented in this encounter"
--- OUTSIDE RECORDS SUMMARY | ~2019-05-02 | XMS | Encounter Summary ---
Demographics + + + | Address | [address] | | | [place] [address] | + + + | Home Phone [...] + | Author | [facility] | | | and [place] | + + + | Organization | [facility] | | | and [place] | + + + | Address | Unknown | + + + | Phone | Unavailable | + + + Support + + + + + | Name | Relationship | Address | Phone | + + + + + | Shlomo Holliday | ECON | [address] | | | | | [place] | | | | | [address] | | + + + + + Care Team Providers + +------+ + | Care Day Care Director Name | Role | Phone | + +------+ + PCP | Unavailable | + +------+ + Encounter Details +--------+ + + + + | Date | Type | Department | Care Team | Description | +--------+ + + + + | 05/13/ | Hospital | [facility] | Lucio Grier MD | Unspecified Chest | | 2007 - | Encounter | [facility] | | Pain | | | | CLINICAL DECISION | | | | 05/14/ | | [address] | | | | 2007 | | [place], [place] | | | | | | [address] | | | | | | [phone] | | | +--------+ + + + [...]
--- OUTSIDE RECORDS SUMMARY | ~2019-05-02 | XMS | Encounter Summary ---
Demographics + + + | Address | [address] | | | [place] [address] | + + + | Home Phone | | + + + | Preferred Language | Unknown | + + + | Marital Status | | + + + | Hindu Affiliation | 1041 | + + + | Race | Unknown | + + + | Ethnic Group | Unknown | + + + Author + + + | Author | [facility] | | | and [place] | + + + | Organization | [facility] | | | and [place] | + + + | Address | Unknown | + + + | Phone | Unavailable | + + + Support + + + + + | Name | Relationship | Address | Phone | + + + + + | Shlomo Holliday | ECON | [address] | | | | | [place] | | | | | [address] | | + + + + + Care Team Providers + +------+ + | Care Geodetic Computator Name | Role | Phone | + +------+ + | Manjit Patterson DO | PCP | | + +------+ + Reason for Visit +--------+ + | Reason | Comments | +--------+ + | Other | Medication question | +--------+ + Encounter Details +--------+ + + + + | Date | Type | Department | Care Team | Description | +--------+ + + + + | 01/15/ | Telephone | [facility] | Macho Hale, | Other (Medication | | 2019 | | [facility] [address] | question) | | | | [address] | [place] [address] | | | | | [place], [place] | [phone] | | | | | [address] | | | | | | [phone] | | | +--------+ + + + [...]
--- OUTSIDE RECORDS SUMMARY | ~2019-05-02 | XMS | Encounter Summary ---
Demographics + + + | Address | [address] | | | [place] [address] | + + + | Home Phone | | + + + | Preferred Language | Unknown | + + + | Marital Status | | + + + | Pentecostalism Affiliation | 1041 | + + + [...] + | Shlomo Holliday | ECON | [address] | | | | | [place] | | | | | [address] | | + + + + + Care Team Providers + +------+ + | Care Strickler Attendant Name | Role | Phone | [...] + + | 02/07/ | Hospital | [facility] | Abdulaziz Winn, | Right wrist pain | | 2018 | Encounter | MED [facility] XRAY [address] | [address] | | | | | [place] | [place] | | | | | [place] [address] | [address] | | | | | [phone] | [phone] | | | | | | | [...]
--- OUTSIDE RECORDS SUMMARY | ~2019-05-02 | XMS | Encounter Summary ---
Demographics + + + | Address | [address] | | | [place] [address] | + + + | Home Phone | | + + + | Preferred Language | Unknown | + + + | Marital Status | | + + + | Church Affiliation | 1041 | + + + | Race | Unknown | + + + | Ethnic Group | Unknown | + + + Author + + + | Author | [facility] | | | and [place] | + + + | Organization | [facility] | | | and [place] | + + + | Address | Unknown | + + + | Phone | Unavailable | + + + Support + + + + + | Name | Relationship | Address | Phone | + + + + + | Shlomo Holliday | ECON | [address] | | | | | [place] | | | | | [address] | | + + + + + Care Team Providers + +------+ + | Care Sales Force Developer Name | Role | Phone | + +------+ + | Manjit Patterson PCP | | + +------+ + Encounter Details +--------+ + + + + | Date | Type | Department | Care Team | Description | +--------+ + + + + | 10/11/ | Abstract | [facility] | Aurelio Arizmendi, | | | 2016 | | PULMONARY [address] | MD [address] | | | | | [place], | [place], [place] | | | | | [place] [address] | [address] | | | | | [phone] | | | +--------+ + + + [...]
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
--- OUTSIDE RECORDS SUMMARY | ~2019-05-02 | XMS | Encounter Summary ---
Demographics + + + | Address | [address] | | | [place] [address] | + + + | Home Phone | | + + + | Preferred Language | Unknown | + + + | Marital Status | | + + + | Jehovah'S Witness Affiliation | 1041 | + + + | Race | Unknown | + + + | Ethnic Group | Unknown | + + + Author + + + | Author | [facility] | | | and [place] | + + + | Organization | [facility] | | | and [place] | + + + | Address | Unknown | + + + | Phone | Unavailable | + + + Support + + + + + | Name | Relationship | Address | Phone | + + + + + | Shlomo Holliday | ECON | [address] | | | | | [place] | | | | | [address] | | + + + + + Care Team Providers + +------+ + | Care Test Preparer Name | Role | Phone | + +------+ + | Manjit Patterson PCP | | + +------+ + Encounter Details +--------+ + + + + | Date | Type | Department | Care Team | Description | +--------+ + + + + | 12/19/ | Preadmit | [facility] | | | | 2019 | Visit | [facility] | | | | | | [facility] | | | | | | [facility] | | | | | | [address] | | | | | | [place], [place] | | | | | | [address] | | | | | | [phone] | | | +--------+ + + + [...] + + + | Blood Pressure | - | - | | + + + + + | Pulse | - | - | | + + + + + | Temperature | - | - | | + + + + + | Respiratory Rate | - | - | | + + + + + | Oxygen Saturation | - | - | | + + + + + | Inhaled Oxygen | - | - | | | Concentration | | | | + + + + + | Weight | 134.7 kg (297 lb) | 12/19/2018 1:40 PM | | | | | PDT | | + + + + + | Height | 175.3 cm (5' 9") | 12/19/2018 1:40 PM | | | | | PDT | | + + + + + | Body Mass Index | 43.86 | 12/19/2018 1:40 PM | | | | | PDT | | + + + + + documented in this encounter Patient Instructions Instructions Gabriella Cramer RN - 12/19/2018You will be called by the Surgery Center after 2:00 pm the day before your procedure for your ARRIVAL TIME. DO NOT EAT anything after midnight. This includes gum and mints. You may have CLEAR LIQUIDS up to 2 hours BEFORE ARRIVAL TIME. Clear liquids: water, pulp-free juices, carbonated beverages, clear tea, and black coffee. You must arrange for a responsible adult to drive you home after your procedure. Children must have a parent stay inside the Surgery Center at all times. Do not wear makeup, jewelry, body piercing's or perfume/cologne. Please leave valuables at home. If having extremity surgery please remove all NAIL SLOVENIAN. Please leave contact lenses at home. Bring a case for eyeglasses & hearing aids. PAS COMPLETED. QUESTIONS ANSWERED. documented in this encounter Plan of Treatment Not on filedocumented as of this encounter Visit Diagnoses Not on filedocumented in this encounter
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
--- OUTSIDE RECORDS SUMMARY | ~2019-05-02 | XMS | Encounter Summary ---
Demographics + + + | Address | [address] | | | [place] [address] | + + + | Home Phone | | + + + | Preferred Language | Unknown | + + + | Marital Status | | + + + | Gnosticism Affiliation | NON | + + + [...] Team Providers + +------+ + | Care Testing Machine Operator Name | Role | Phone | + +------+ + | Francisco Estrada PCP | Unavailable | + +------+ + Encounter Details +--------+ + + + + | Date | Type | Department | Care Team | Description | +--------+ + + + + | 12/18/ | Procedure - | | Record, Operation | Operative Report | | 2005 | | | | | | | Transcribed | | | | +--------+ + + [...] | + +--------+ + + + | OPERATION RECORD | | 12/18/2005 | | Results for this | | | | | | procedure are in the | | | | | | results section. | + +--------+ + + + documented in this encounter Results OPERATION RECORD (12/18/2005) + + | Transcriptions | + + | Interface, Instrumentation Tech In - 12/20/2005 2:03 AM PDT | | [id number] | | [id number] [address] [id number] | | | | Date: 12/18/2005 | | | | Attending Surgeon: Trace Renteria M.D. | | | | Banker Mason(s): Ady Boyd M.D. | | | | Preoperative Diagnosis(es): | | Right carpal tunnel syndrome. | | | | Postoperative Diagnosis(es): | | Right carpal tunnel syndrome. | | | | Procedures Performed: | | Open right carpal tunnel release. | | | | Anesthesia: | | Right median nerve block and conscious sedation. | | | | Estimated Blood Loss: | | Scant. | | | | Findings: | | Hypertrophic flexor retinaculum with tight carpal tunnel. | | | | Indications: | | Briefly, Mr. Holliday is a 50-year-old gentleman who has clinical and | | electrodiagnostic evidence of a right carpal tunnel syndrome. He presents | | for carpal tunnel release. I personally explained the risks and benefits | | of the procedure to him including but not limited to , bleeding, | | infection, wound, hematoma, and nerve injury including paralysis to the | | right hand and thumb. He understands and wishes to proceed. | | | | Procedure: | | The patient was taken to the operating room. Anesthesia attempted to give | | moderate sedation and found that the patient had significant CO2 retention, | | it was therefore elected by Anesthesia and the Neurosurgery staff to | | proceed with right median nerve blockage. This was done with bupivacaine | | without difficulty. The nerve block was tested and found to be reasonable. | | The patient was then prepped and draped in the sterile fashion. The hand | | was placed into a leg hand walker in the slightly extended position. A | | line was drawn from the palmar crease just ulnar to the palmaris longus | | tendon extending to a point about intermediate across the surface of the palm. | | A #15 blade was used to make an incision down through the skin. Scissors | | and sharp dissection techniques were used to open up and identify the | | palmar fascia. The palmar fascia was opened up sharply and undermined. We | | then encountered the flexor retinaculum. This was opened up proximally | | using scissors. A #4 [place] was passed into the flexor retinaculum, and | | it was opened up more proximally. After opening up the carpal tunnel, we | | ultimately were able to get the dissector to slide easily across the wrist. | | We therefore concluded the ( ) of the operation and began | | with closure. The hand was copiously irrigated. Nylon 3-0 sutures were | | used in a vertical mattress fashion to approximate the skin. The hand was | | then wrapped in sterile dressing with sterile gauze and Celestino wrap. | | | | The patient was turned to PACU in stable condition. | | | | Postoperative Plan: | | To keep the dressing on for at least 1 week at which point he may change | | the dressing at home. I will see him back in clinic in 2 weeks for a wound | | check back here in [place]. | | | | | | | | | | Trace Renteria M.D. | | | | AN / HS | | [phone] / [id number] / [phone] / [phone] | | | | | | | | cc: | | | | | | Francisco Estrada M.D. | | [address] | | [place] [address] | + + documented in this encounter Visit Diagnoses Not on filedocumented in this encounter"
--- OUTSIDE RECORDS SUMMARY | ~2019-05-02 | XMS | Encounter Summary ---
Demographics + + + | Address | [address] | | | [place] [address] | + + + | Home Phone | | + + + | Preferred Language | Unknown | + + + | Marital Status | | + + + | Mormon Affiliation | 1041 | + + + | Race | Unknown | + + + | Ethnic Group | Unknown | + + + Author + + + | Author | [facility] | | | and [place] | + + + | Organization | [facility] | | | and [place] | + + + | Address | Unknown | + + + | Phone | Unavailable | + + + Support + + + + + | Name | Relationship | Address | Phone | + + + + + | Shlomo Holliday | ECON | [address] | | | | | [place] | | | | | [address] | | + + + + + Care Team Providers + +------+ + | Care International Project Manager Name | Role | Phone | + +------+ + | Manjit Patterson PCP | | + +------+ + Encounter Details +--------+ + + + + | Date | Type | Department | Care Team | Description | +--------+ + + + + | 02/14/ | Hospital | [facility] | Conversion | Pain | | 2018 | Encounter | CONVERSION [address] | Transaction, | | | | | [address] | Provider Unknown | | | | | [place] | [id number] | | | | | [address] | | | | | | [phone] | | | +--------+ + + + [...] + + + | MRI WRIST RIGHT WO | Routin | 02/07/2018 | | Results for this | | CONTRAST | e | 12:14 AM | | procedure are in the | | | | PDT | | results section. | + +--------+ + + + documented in this encounter Results MRI Wrist Right wo Contrast (02/07/2018 12:14 AM PDT) + + | Specimen | + + | | + + + + + | Narrative | Performed At | + + + | This is a non-reportable procedure without a radiologist report and | | | is used for image storage only | | + + + + + | Procedure Note | + + | Gasper Latif - 12/17/2018 6:17 AM PDT This is a non-reportable procedure | | without a radiologist report and isused for image storage only | + + documented in this encounter Visit Diagnoses + + | Diagnosis | + + | Pain Generalized pain | + + documented in this encounter"
--- OUTSIDE RECORDS SUMMARY | ~2019-05-02 | XMS | Encounter Summary ---
Demographics + + + | Address | [address] | | | [place] [address] | + + + | Home Phone | | + + + | Preferred Language | Unknown | + + + | Marital Status | | + + + | Catholic Affiliation | 1041 | + + + | Race | Unknown | + + + | Ethnic Group | Unknown | + + + Author + + + | Author | [facility] | | | and [place] | + + + | Organization | [facility] | | | and [place] | + + + | Address | Unknown | + + + | Phone | Unavailable | + + + Support + + + + + | Name | Relationship | Address | Phone | + + + + + | Shlomo Holliday | ECON | [address] | | | | | [place] | | | | | [address] | | + + + + + Care Team Providers + +------+ + | Care Dandy Tender Name | Role | Phone | + +------+ + | Manjit Patterson PCP | | + +------+ + Encounter Details +--------+ + + + + | Date | Type | Department | Care Team | Description | +--------+ + + + + | 11/26/ | Orders Only | [facility] | Provider, | | | 2018 | | SYSTEM GENERIC OP | MD [address] | | | | | CONVERSION [address] | [address] | | | | | [address] [place], [place] | [place] [address] | | | | | [address] | | | | | | [phone] | | | +--------+ + + + [...]
--- OUTSIDE RECORDS SUMMARY | ~2019-05-02 | XMS | Encounter Summary ---
Demographics + + + | Address | [address] | | | [place] [address] | + + + | Home Phone | | + + + | Preferred Language | Unknown | + + + | Marital Status | | + + + | Jew Affiliation | 1041 | + + + [...] + | Shlomo Holliday | ECON | [address] | | | | | [place] | | | | | [address] | | + + + + + Care Team Providers + +------+ + | Care Television Host Name | Role | Phone | + +------+ + PCP | Unavailable | + +------+ + Encounter Details +--------+ + + + + | Date | Type | Department | Care Team | Description | +--------+ + + + + | 01/04/ | Hospital | [facility] | Ryan Hodges, | | | 2006 | Encounter | [facility] | MD [address], | | | | | CENTER [address] | [address] [place], | | | | | [place] | [place] [address] | | | | | [address] | [phone] | | | | | [phone] | | | +--------+ + + + [...]
--- OUTSIDE RECORDS SUMMARY | ~2019-05-02 | XMS | Encounter Summary ---
Demographics + + + | Address | [address] | | | [place] [address] | + + + | Home Phone | | + + + | Preferred Language | Unknown | + + + | Marital Status | | + + + | Orthodoxy Affiliation | NON | + + + | Race | or | + + + | Ethnic Group | Not or | + + + Author + + + | Author | [facility] | + + + | Organization | [facility] | + + + | Address | Unknown | + + + | Phone | Unavailable | + + + Support + + +---------+ + | Name | Relationship | Address | Phone | + + +---------+ + | Shlomo Holliday | ECON | Unknown | | + + +---------+ + Care Team Providers + +------+ + | Care Stand Up Comedian Name | Role | Phone | + +------+ + | Francisco Estrada PCP | Unavailable | + +------+ + Encounter Details +--------+ + + + + | Date | Type | Department | Care Team | Description | +--------+ + + + + | 11/08/ | Ancillary | Registration [id number] | Trace Renteria, | | | 2005 | Registratio | DEMARCUS Villavicencio MD | | | | n | Adrián Mailcode: [id number] | | | | | | [place], [place] | | | | | | [address] | | | | | | [phone] | | | +--------+ + + + [...]
--- OUTSIDE RECORDS SUMMARY | ~2019-05-02 | XMS | Encounter Summary ---
Demographics + + + | Address | [address] | | | [place] [address] | + + + | Home Phone [...] Team Providers + +------+ + | Care Information Systems Analyst Name | Role | Phone | + [...] | Transcriptions | + + | Interface, Safety Representative In - 12/20/2005 2:03 AM PDT | | [id number] | | [id number] [address] [id number] | | | | Date: 12/18/2005 | | | | Attending Surgeon: Trace Renteria M.D. | | | | Bowling Pin Setters Installer(s): Ady Boyd M.D. | | | | [...] | tendon extending to a point about senior living across the surface of the palm. | [...] proximally | | using scissors. A #4 [place] was passed into the flexor retinaculum, and [...] wound | | check back here in [place]. | | | | | | | | | | Trace Renteria M.D. | | | | AN / HS | | [id number] / [id number] / [id number] / [phone] | | | | | | | | cc: | | | | | | Francisco Estrada M.D. | | [address] | | [place] [address] | + + documented in this encounter Visit Diagnoses Not on filedocumented in this encounter"
--- OUTSIDE RECORDS SUMMARY | ~2019-05-02 | XMS | Encounter Summary ---
Demographics + + + | Address | [address] | | | [place] [address] | + + + | Home Phone | | + + + | Preferred Language | Unknown | + + + | Marital Status | | + + + | Pentecostalism Affiliation | NON | + + + | Race | or | + + + | Ethnic Group | Not or | + + + Author + + + | Author | [facility] | + + + | Organization | [facility] | + + + | Address | Unknown | + + + | Phone | Unavailable | + + + Support + + +---------+ + | Name | Relationship | Address | Phone | + + +---------+ + | Shlomo Holliday | ECON | Unknown | | + + +---------+ + Care Team Providers + +------+ + | Care Cutter First Name | Role | Phone | + [...] as of this encounter Progress Notes Interface, Motion Picture Photographer In - 12/03/2004 10:45 AM PDT Marshall Holliday [id number] [facility] REC NUMBER: [id number] NAME : Marshall Holliday DATE : 1955 Admit Date: 11/06/2004 Discharge Date: 11/16/2004 PHYSICIAN'S REQUEST FOR HOME HEALTH SERVICES Relevant History: Location to receive services if other than home: Allergies: Height: Weight: [facility] [address] [facility] [place] [address] Physician to follow for ongoing home health orders: PCP Name: PCP Phone: Discharge Need(s): 1. DME Equipment (commode, wheelchair, etc) Discharge Vendor: [facility] Discharge Suggested First Visit/Delivery Date: Discharge Service/Equipment: Wide Wheelchair, Wide Bedside commode, hospital bed, [facility] Physical therapy, RN, Caregiver assistance Model Engine Mechanic: Jane Lara RN documented i n this encounter Plan of Treatment Not on filedocumented as of this encounter Visit Diagnoses Not on filedocumented in this encounter"
--- OUTSIDE RECORDS SUMMARY | ~2019-05-02 | XMS | Encounter Summary ---
Demographics + + + | Address | [address] | | | [place] [address] | + + + | Home Phone | | + + + | Preferred Language | Unknown | + + + | Marital Status | | + + + | Mandaen Affiliation | 1041 | + + + | Race | Unknown | + + + | Ethnic Group | Unknown | + + + Author + + + | Author | [facility] | | | and [place] | + + + | Organization | [facility] | | | and [place] | + + + | Address | Unknown | + + + | Phone | Unavailable | + + + Support + + + + + | Name | Relationship | Address | Phone | + + + + + | Shlomo Holliday | ECON | [address] | | | | | [place] | | | | | [address] | | + + + + + Care Team Providers + +------+ + | Care Noodle Maker Name | Role | Phone | + [...] | | | 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[address], | | | | | 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: | | | | | right wrist | | [phone] | | | | | Right | | Fax: | | | | | carpal | | [phone] | | | | | tunnel, | [...] tunnel | | 2019 | Encounter | [facility] | | syndrome (Primary | | | | [facility] | | Dx); Right wrist | | | | OP [address] | | pain; Right wrist | | | | [place] | | tendonitis | | | | [address] | | | | | | [phone] | | | +--------+ + + + [...] Macho Hale MD - 12/30/2018 8:43 AM [facility] Same Day Surgery: Brief Post Op Discharge Note Post Procedure Discharge Note; See Operative Note for details Marshall Holliday Age/Gender 63 y.o. male Location [facility] OP Attending No att. providers [...] to the phone number bel ow. For [facility] offices located on [address] and on [address] [place] [address] please call . This will take you [...] 01/01/2019 11:56 AM PDTCalled for f/u 01/01/19 ([id number]), voice mail box not set up. aysinger, [...]
--- OUTSIDE RECORDS SUMMARY | ~2019-05-02 | XMS | Encounter Summary ---
Demographics + + + | Address | [address] | | | [place] [address] | + + + | Home Phone | | + + + | Preferred Language | Unknown | + + + | Marital Status | | + + + | Spiritism Affiliation | NON | + + + [...] Team Providers + +------+ + | Care Set Rider Name | Role | Phone | + +------+ + PCP | Unavailable | + +------+ + Encounter Details +--------+ + + + + | Date | Type | Department | Care Team | Description | +--------+ + + + + | 11/13/ | Orders Only | | Lab, Vascular | | | 2005 | | | | | +--------+ + [...] | + +--------+ + + + | VASCULAR FLOW | | 11/13/2004 | | | | IMAGING, NONCARDIAC | | | | | | - VASC LAB | | | | | + +--------+ + + + documented in this encounter Visit Diagnoses Not on filedocumented in this encounter"
--- OUTSIDE RECORDS SUMMARY | ~2019-05-02 | XMS | Encounter Summary ---
Demographics + + + | Address | [address] | | | [place] [address] | + + + | Home Phone | | + + + | Preferred Language | Unknown | + + + | Marital Status | | + + + | Pentecostal Affiliation | NON | + + + [...] Team Providers + +------+ + | Care Farm Forestry And Garden Workers Name | Role | Phone | + +------+ + | Francisco Estrada PCP | Unavailable | + +------+ + Encounter Details +--------+ + + + + | Date | Type | Department | Care Team | Description | +--------+ + + + + | 11/19/ | Procedure - | Neurophysiology | Report, Emg | Neurophysiology | | 2005 | | EMG at [address] | | | | | Transcribed | [address] | | | | | | Mailcode: [id number] | | | | | | [facility] | | | | | | [place], [place] | | | | | | [address] | | | | | | [phone] | | | +--------+ + + + [...] | + +--------+ + + + | EMG/NERVE CONDUCTION | | 11/19/2005 | | | | STUDIES,ADULT - | | | | | | NEUROLOGY | | | | | + +--------+ + + + documented in this encounter Visit Diagnoses Not on filedocumented in this encounter"
--- OUTSIDE RECORDS SUMMARY | ~2019-05-02 | XMS | Encounter Summary ---
Demographics + + + | Address | [address] | | | [place] [address] | + + + | Home Phone | | + + + | Preferred Language | Unknown | + + + | Marital Status | | + + + | Episcopal Affiliation | NON | + + + | Race | or | + + + | Ethnic Group | Not or | + + + Author + + + | Author | [facility] | + + + | Organization | [facility] | + + + | Address | Unknown | + + + | Phone | Unavailable | + + + Support + + +---------+ + | Name | Relationship | Address | Phone | + + +---------+ + | Shlomo Holliday | ECON | Unknown | | + + +---------+ + Care Team Providers + +------+ + | Care Counter Stacker Name | Role | Phone | + +------+ + PCP | Unavailable | + +------+ + Encounter Details +--------+ + + + + | Date | Type | Department | Care Team | Description | +--------+ + + + + | 11/07/ | Results | General Surgery | Colton Werner MD | | | 2004 | Only | [address] | | | | | | [address] Mailcode: | | | | | | [id number] | | | | | | [facility] [address] | | | | | | [place], [place] | | | | | | [address] | | | | | | [phone] | | | +--------+ + + + [...] | + +--------+ + + + | CT RECON ELVI, | Routin | 11/11/2004 | | Results for this | | CORONL | e | 10:40 PM | | procedure are in the | | | | PDT | | results section. | + +--------+ + + + | CT RECONSTRUCTION | Routin | 11/07/2004 | | Results for this | | CORONAL | e | 9:30 AM | | procedure are in the | | | | PDT | | results section. | + +--------+ + + + | CT RECON SAGITL, | Routin | 11/07/2004 | | Results for this | | CORONL | e | 9:30 AM | | procedure are in the | | | | PDT | | results section. | + +--------+ + + + | CT RECON SAGITL, | Routin | 11/07/2004 | | Results for this | | CORONL | e | 9:30 AM | | procedure are in the | | | | PDT | | results section. | + +--------+ + + + | CT SPINE THORACIC WO | Routin | 11/07/2004 | | Results for this | | CONTRAST | e | 9:30 AM | | procedure are in the | | | | PDT | | results section. | + +--------+ + + + | CT SPINE LUMBAR WO | Routin | 11/07/2004 | | Results for this | | CONTRAST | e | 9:30 AM | | procedure are in the | | | | PDT | | results section. | + +--------+ + + + | CT SPINE CERVICAL WO | Routin | 11/07/2004 | | Results for this | | CONTRAST | e | 9:30 AM | | procedure are in the | | | | PDT | | results section. | + +--------+ + + + documented in this encounter Results CT RECON SAGITL; CORONL [place] 3D (11/11/2004 10:40 PM PDT) + + + + + + | Component | Value | Ref Range | Performed | Pathologist | | | | | At | Signature | + + + + + + | CT RECON | Radiologist 1: CHRISTINA, | | | | | ELVI, | Tramaine WHEELER M.D.CT SCAN | | | | | CORONL [place] | OF THE RIGHT KNEE | | | | | 3D | WITHOUT INTRAVENOUS | | | | | | CONTRAST, SAGITALAND | | | | | | CORONAL REFORMATIONS. | | | | | | 11/11/04 COMPARISON: | | | | | | Right knee radiograph | | | | | | 11/10/04 HISTORY: Right | | | | | | lateral tibial plateau | | | | | | fracture. | | | | | | PROCEDURE:Multi detector | | | | | | helical CT scanning was | | | | | | performed in the | | | | | | axialplane using 2 mm | | | | | | axial images at spacing | | | | | | of 1 mm. Sagittal | | | | | | andcoronal reformations | | | | | | were performed. | | | | | | FINDINGS:There is a | | | | | | comminuted fracture of | | | | | | the lateral plateau. | | | | | | There isless than 1 mm | | | | | | articular step off. | | | | | | There is a | | | | | | sagittalnondisplaced | | | | | | cleavage fracture | | | | | | extending to the | | | | | | lateraldiametaphysis. | | | | | | There is diffuse | | | | | | degenerative joint | | | | | | disease which is | | | | | | mostprominent in the | | | | | | lateral compartment with | | | | | | sclerosis, | | | | | | jointnarrowing and | | | | | | marginal osteophytes. | | | | | | There are osteophytes | | | | | | of thetibial spines and | | | | | | intercondylar notch. | | | | | | There is a 1 x 1.5 cm | | | | | | osteochondral body in | | | | | | the | | | | | | anteriorintercondylar | | | | | | notch. This has | | | | | | cortical margins and | | | | | | central marrowdensity. | | | | | | Just adjacent to this, | | | | | | are two additional | | | | | | osteochondralbodies | | | | | | measuring only | | | | | | approximately 0.5 cm | | | | | | each. A joint | | | | | | effusionis present. | | | | | | IMPRESSION: 1. | | | | | | Minimally displaced | | | | | | central compression | | | | | | fracture of thelateral | | | | | | plateau.2. | | | | | | Nondisplaced cleavage | | | | | | fracture of the lateral | | | | | | plateauextending to the | | | | | | diametaphyseal cortex.3. | | | | | | Marked degenerative | | | | | | joint disease which is | | | | | | most prominent inthe | | | | | | lateral compartment.4. | | | | | | Three intra-articular | | | | | | osteochondral bodies | | | | | | within the | | | | | | anteriorosteochondral | | | | | | notch. | | | | + + + + + + + + | Specimen | + + | | + + + +---------+ + + | Performing | Address | City/State/Zipcode | Phone Number | | Organization | | | | + +---------+ + + | [facility] | | | | | RADIOLOGY | | | | + +---------+ + + CT RECONSTRUCTION CORONAL (11/07/2004 9:30 AM PDT) + + + + + + | Component | Value | Ref Range | Performed | Pathologist | | | | | At | Signature | + + + + + + | CT | Radiologist 1: WILLIS | | | | | RECONSTRUCT | Ramon MACIAS-Radiologist | | | | | ION CORONAL | 2: GILBERTO PEDRO M.D.CT | | | | | | CERVICAL, THORACIC, AND | | | | | | LUMBAR SPINE: | | | | | | 11/07/2004 Dictated | | | | | | 11/07/2004 COMPARISON: | | | | | | None. HISTORY: | | | | | | Trauma. TECHNIQUE: | | | | | | Overlapping 1-mm | | | | | | helical images were | | | | | | performed through | | | | | | thecervical spine. | | | | | | Overlapping 3-mm | | | | | | helical images were | | | | | | performedthrough the | | | | | | thoracic and lumbar | | | | | | spine. Sagittal and | | | | | | coronalreformations were | | | | | | performed. CERVICAL | | | | | | SPINE FINDINGS: There | | | | | | is no acute fracture. | | | | | | Vertebral bodyheights | | | | | | and intervertebral disc | | | | | | spaces are maintained. | | | | | | There isnormal | | | | | | alignment. No | | | | | | prevertebral soft tissue | | | | | | swelling is | | | | | | present.There is | | | | | | predominantly | | | | | | right-sided subcutaneous | | | | | | | | | | | | emphysema.Retropharyngea | | | | | | l emphysema is also | | | | | | identified. THORACIC AND | | | | | | LUMBAR SPINE FINDINGS: | | | | | | There is no acute | | | | | | fractureinvolving the | | | | | | thoracic or lumbar | | | | | | spine. The vertebral | | | | | | body heightsand | | | | | | intervertebral disc | | | | | | spaces are maintained, | | | | | | and there is | | | | | | normalalignment. There | | | | | | are mild scattered | | | | | | degenerative changes | | | | | | present.There are mildly | | | | | | displaced fractures | | | | | | involving the posterior | | | | | | rightfifth, sixth, and | | | | | | seventh ribs. There is a | | | | | | right-sided chest tube | | | | | | present and a small | | | | | | residual | | | | | | rightpneumothorax. | | | | | | Moderate | | | | | | pneumomediastinum is | | | | | | present. | | | | | | Subcutaneousemphysema | | | | | | is seen both posteriorly | | | | | | and anteriorly within | | | | | | the chest.There is small | | | | | | bilateral pleural fluid | | | | | | and bibasilar | | | | | | atelectasis. IMPRESSION: | | | | | | 1. No cervical, | | | | | | thoracic, or lumbar | | | | | | spine fracture. 2. | | | | | | Mildly displaced | | | | | | fractures involving the | | | | | | posterior right | | | | | | fifth,sixth, and seventh | | | | | | ribs. 3. Small right | | | | | | pneumothorax, | | | | | | pneumomediastinum and | | | | | | scatteredsubcutaneous | | | | | | emphysema. END | | | | | | IMPRESSION: | | | | + + + + + + + + | Specimen | + + | | + + + +---------+ + + | Performing | Address | City/State/Zipcode | Phone Number | | Organization | | | | + +---------+ + + | [facility] DEPARTMENT OF | | | | | RADIOLOGY | | | | + +---------+ + + CT RECON SAGITL; CORONL OR 3D (11/07/2004 9:30 AM PDT) + + + + + + | Component | Value | Ref Range | Performed | Pathologist | | | | | At | Signature | + + + + + + | CT RECON | Radiologist 1: WILLIS | | | | | ELVI | Ramon MACIAS-Radiologist | | | | | [place] | 2: GILBERTO PEDRO M.D.CT | | | | | 3D | CERVICAL, THORACIC, AND | | | | | | LUMBAR SPINE: | | | | | | 11/07/2004 Dictated | | | | | | 11/07/2004 COMPARISON: | | | | | | None. HISTORY: | | | | | | Trauma. TECHNIQUE: | | | | | | Overlapping 1-mm | | | | | | helical images were | | | | | | performed through | | | | | | thecervical spine. | | | | | | Overlapping 3-mm | | | | | | helical images were | | | | | | performedthrough the | | | | | | thoracic and lumbar | | | | | | spine. Sagittal and | | | | | | coronalreformations were | | | | | | performed. CERVICAL | | | | | | SPINE FINDINGS: There | | | | | | is no acute fracture. | | | | | | Vertebral bodyheights | | | | | | and intervertebral disc | | | | | | spaces are maintained. | | | | | | There isnormal | | | | | | alignment. No | | | | | | prevertebral soft tissue | | | | | | swelling is | | | | | | present.There is | | | | | | predominantly | | | | | | right-sided subcutaneous | | | | | | | | | | | | emphysema.Retropharyngea | | | | | | l emphysema is also | | | | | | identified. THORACIC AND | | | | | | LUMBAR SPINE FINDINGS: | | | | | | There is no acute | | | | | | fractureinvolving the | | | | | | thoracic or lumbar | | | | | | spine. The vertebral | | | | | | body heightsand | | | | | | intervertebral disc | | | | | | spaces are maintained, | | | | | | and there is | | | | | | normalalignment. There | | | | | | are mild scattered | | | | | | degenerative changes | | | | | | present.There are mildly | | | | | | displaced fractures | | | | | | involving the posterior | | | | | | rightfifth, sixth, and | | | | | | seventh ribs. There is a | | | | | | right-sided chest tube | | | | | | present and a small | | | | | | residual | | | | | | rightpneumothorax. | | | | | | Moderate | | | | | | pneumomediastinum is | | | | | | present. | | | | | | Subcutaneousemphysema | | | | | | is seen both posteriorly | | | | | | and anteriorly within | | | | | | the chest.There is small | | | | | | bilateral pleural fluid | | | | | | and bibasilar | | | | | | atelectasis. IMPRESSION: | | | | | | 1. No cervical, | | | | | | thoracic, or lumbar | | | | | | spine fracture. 2. | | | | | | Mildly displaced | | | | | | fractures involving the | | | | | | posterior right | | | | | | fifth,sixth, and seventh | | | | | | ribs. 3. Small right | | | | | | pneumothorax, | | | | | | pneumomediastinum and | | | | | | scatteredsubcutaneous | | | | | | emphysema. END | | | | | | IMPRESSION: | | | | + + + + + + + + | Specimen | + + | | + + + +---------+ + + | Performing | Address | City/State/Zipcode | Phone Number | | Organization | | | | + +---------+ + + | [facility] | | | | | RADIOLOGY | | | | + +---------+ + + CT RECON SAGITL; CORONL [place] 3D (11/07/2004 9:30 AM PDT) + + + + + + | Component | Value | Ref Range | Performed | Pathologist | | | | | At | Signature | + + + + + + | CT RECON | Radiologist 1: WILLIS | | | | | Saud BOLES M.D.-Radiologist | | | | | CORONL [place] | 2: GILBERTO PEDRO M.D.CT | | | | | 3D | CERVICAL, THORACIC, AND | | | | | | LUMBAR SPINE: | | | | | | 11/07/2004 Dictated | | | | | | 11/07/2004 COMPARISON: | | | | | | None. HISTORY: | | | | | | Trauma. TECHNIQUE: | | | | | | Overlapping 1-mm | | | | | | helical images were | | | | | | performed through | | | | | | thecervical spine. | | | | | | Overlapping 3-mm | | | | | | helical images were | | | | | | performedthrough the | | | | | | thoracic and lumbar | | | | | | spine. Sagittal and | | | | | | coronalreformations were | | | | | | performed. CERVICAL | | | | | | SPINE FINDINGS: There | | | | | | is no acute fracture. | | | | | | Vertebral bodyheights | | | | | | and intervertebral disc | | | | | | spaces are maintained. | | | | | | There isnormal | | | | | | alignment. No | | | | | | prevertebral soft tissue | | | | | | swelling is | | | | | | present.There is | | | | | | predominantly | | | | | | right-sided subcutaneous | | | | | | | | | | | | emphysema.Retropharyngea | | | | | | l emphysema is also | | | | | | identified. THORACIC AND | | | | | | LUMBAR SPINE FINDINGS: | | | | | | There is no acute | | | | | | fractureinvolving the | | | | | | thoracic or lumbar | | | | | | spine. The vertebral | | | | | | body heightsand | | | | | | intervertebral disc | | | | | | spaces are maintained, | | | | | | and there is | | | | | | normalalignment. There | | | | | | are mild scattered | | | | | | degenerative changes | | | | | | present.There are mildly | | | | | | displaced fractures | | | | | | involving the posterior | | | | | | rightfifth, sixth, and | | | | | | seventh ribs. There is a | | | | | | right-sided chest tube | | | | | | present and a small | | | | | | residual | | | | | | rightpneumothorax. | | | | | | Moderate | | | | | | pneumomediastinum is | | | | | | present. | | | | | | Subcutaneousemphysema | | | | | | is seen both posteriorly | | | | | | and anteriorly within | | | | | | the chest.There is small | | | | | | bilateral pleural fluid | | | | | | and bibasilar | | | | | | atelectasis. IMPRESSION: | | | | | | 1. No cervical, | | | | | | thoracic, or lumbar | | | | | | spine fracture. 2. | | | | | | Mildly displaced | | | | | | fractures involving the | | | | | | posterior right | | | | | | fifth,sixth, and seventh | | | | | | ribs. 3. Small right | | | | | | pneumothorax, | | | | | | pneumomediastinum and | | | | | | scatteredsubcutaneous | | | | | | emphysema. END | | | | | | IMPRESSION: | | | | + + + + + + + + | Specimen | + + | | + + + +---------+ + + | Performing | Address | City/State/Zipcode | Phone Number | | Organization | | | | + +---------+ + + | [facility] DEPARTMENT OF | | | | | RADIOLOGY | | | | + +---------+ + + CT SPINE LUMBAR WO CONTRASTR (11/07/2004 9:30 AM PDT) + + + + + + | Component | Value | Ref Range | Performed | Pathologist | | | | | At | Signature | + + + + + + | CT LUMBAR | Radiologist 1: WILLIS, | | | | | SPINE WO | Ramon MACIAS-Radiologist | | | | | CONTRAST | 2: GILBERTO PEDRO M.D.CT | | | | | | CERVICAL, THORACIC, AND | | | | | | LUMBAR SPINE: | | | | | | 11/07/2004 Dictated | | | | | | 11/07/2004 COMPARISON: | | | | | | None. HISTORY: | | | | | | Trauma. TECHNIQUE: | | | | | | Overlapping 1-mm | | | | | | helical images were | | | | | | performed through | | | | | | thecervical spine. | | | | | | Overlapping 3-mm | | | | | | helical images were | | | | | | performedthrough the | | | | | | thoracic and lumbar | | | | | | spine. Sagittal and | | | | | | coronalreformations were | | | | | | performed. CERVICAL | | | | | | SPINE FINDINGS: There | | | | | | is no acute fracture. | | | | | | Vertebral bodyheights | | | | | | and intervertebral disc | | | | | | spaces are maintained. | | | | | | There isnormal | | | | | | alignment. No | | | | | | prevertebral soft tissue | | | | | | swelling is | | | | | | present.There is | | | | | | predominantly | | | | | | right-sided subcutaneous | | | | | | | | | | | | emphysema.Retropharyngea | | | | | | l emphysema is also | | | | | | identified. THORACIC AND | | | | | | LUMBAR SPINE FINDINGS: | | | | | | There is no acute | | | | | | fractureinvolving the | | | | | | thoracic or lumbar | | | | | | spine. The vertebral | | | | | | body heightsand | | | | | | intervertebral disc | | | | | | spaces are maintained, | | | | | | and there is | | | | | | normalalignment. There | | | | | | are mild scattered | | | | | | degenerative changes | | | | | | present.There are mildly | | | | | | displaced fractures | | | | | | involving the posterior | | | | | | rightfifth, sixth, and | | | | | | seventh ribs. There is a | | | | | | right-sided chest tube | | | | | | present and a small | | | | | | residual | | | | | | rightpneumothorax. | | | | | | Moderate | | | | | | pneumomediastinum is | | | | | | present. | | | | | | Subcutaneousemphysema | | | | | | is seen both posteriorly | | | | | | and anteriorly within | | | | | | the chest.There is small | | | | | | bilateral pleural fluid | | | | | | and bibasilar | | | | | | atelectasis. IMPRESSION: | | | | | | 1. No cervical, | | | | | | thoracic, or lumbar | | | | | | spine fracture. 2. | | | | | | Mildly displaced | | | | | | fractures involving the | | | | | | posterior right | | | | | | fifth,sixth, and seventh | | | | | | ribs. 3. Small right | | | | | | pneumothorax, | | | | | | pneumomediastinum and | | | | | | scatteredsubcutaneous | | | | | | emphysema. END | | | | | | IMPRESSION: | | | | + + + + + + + + | Specimen | + + | | + + + +---------+ + + | Performing | Address | City/State/Zipcode | Phone Number | | Organization | | | | + +---------+ + + | [facility] OF | | | | | RADIOLOGY | | | | + +---------+ + + CT SPINE THORACIC WO CONTRAST (11/07/2004 9:30 AM PDT) + + + + + + | Component | Value | Ref Range | Performed | Pathologist | | | | | At | Signature | + + + + + + | CT THORACIC | Radiologist 1: WILLIS, | | | | | SPINE WO | Ramon MACIAS-Radiologist | | | | | CONTRAST | 2: GILBERTO PEDRO M.D.CT | | | | | | CERVICAL, THORACIC, AND | | | | | | LUMBAR SPINE: | | | | | | 11/07/2004 Dictated | | | | | | 11/07/2004 COMPARISON: | | | | | | None. HISTORY: | | | | | | Trauma. TECHNIQUE: | | | | | | Overlapping 1-mm | | | | | | helical images were | | | | | | performed through | | | | | | thecervical spine. | | | | | | Overlapping 3-mm | | | | | | helical images were | | | | | | performedthrough the | | | | | | thoracic and lumbar | | | | | | spine. Sagittal and | | | | | | coronalreformations were | | | | | | performed. CERVICAL | | | | | | SPINE FINDINGS: There | | | | | | is no acute fracture. | | | | | | Vertebral bodyheights | | | | | | and intervertebral disc | | | | | | spaces are maintained. | | | | | | There isnormal | | | | | | alignment. No | | | | | | prevertebral soft tissue | | | | | | swelling is | | | | | | present.There is | | | | | | predominantly | | | | | | right-sided subcutaneous | | | | | | | | | | | | emphysema.Retropharyngea | | | | | | l emphysema is also | | | | | | identified. THORACIC AND | | | | | | LUMBAR SPINE FINDINGS: | | | | | | There is no acute | | | | | | fractureinvolving the | | | | | | thoracic or lumbar | | | | | | spine. The vertebral | | | | | | body heightsand | | | | | | intervertebral disc | | | | | | spaces are maintained, | | | | | | and there is | | | | | | normalalignment. There | | | | | | are mild scattered | | | | | | degenerative changes | | | | | | present.There are mildly | | | | | | displaced fractures | | | | | | involving the posterior | | | | | | rightfifth, sixth, and | | | | | | seventh ribs. There is a | | | | | | right-sided chest tube | | | | | | present and a small | | | | | | residual | | | | | | rightpneumothorax. | | | | | | Moderate | | | | | | pneumomediastinum is | | | | | | present. | | | | | | Subcutaneousemphysema | | | | | | is seen both posteriorly | | | | | | and anteriorly within | | | | | | the chest.There is small | | | | | | bilateral pleural fluid | | | | | | and bibasilar | | | | | | atelectasis. IMPRESSION: | | | | | | 1. No cervical, | | | | | | thoracic, or lumbar | | | | | | spine fracture. 2. | | | | | | Mildly displaced | | | | | | fractures involving the | | | | | | posterior right | | | | | | fifth,sixth, and seventh | | | | | | ribs. 3. Small right | | | | | | pneumothorax, | | | | | | pneumomediastinum and | | | | | | scatteredsubcutaneous | | | | | | emphysema. END | | | | | | IMPRESSION: | | | | + + + + + + + + | Specimen | + + | | + + + +---------+ + + | Performing | Address | City/State/Zipcode | Phone Number | | Organization | | | | + +---------+ + + | [facility] DEPARTMENT OF | | | | | RADIOLOGY | | | | + +---------+ + + CT SPINE CERVICAL WO CONTRAST (11/07/2004 9:30 AM PDT) + + + + + + | Component | Value | Ref Range | Performed | Pathologist | | | | | At | Signature | + + + + + + | CT CERVICAL | Radiologist 1: WILLIS, | | | | | SPINE WO | Ramon MACIAS-Radiologist | | | | | CONTRAST | 2: GILBERTO PEDRO M.D.CT | | | | | | CERVICAL, THORACIC, AND | | | | | | LUMBAR SPINE: | | | | | | 11/07/2004 Dictated | | | | | | 11/07/2004 COMPARISON: | | | | | | None. HISTORY: | | | | | | Trauma. TECHNIQUE: | | | | | | Overlapping 1-mm | | | | | | helical images were | | | | | | performed through | | | | | | thecervical spine. | | | | | | Overlapping 3-mm | | | | | | helical images were | | | | | | performedthrough the | | | | | | thoracic and lumbar | | | | | | spine. Sagittal and | | | | | | coronalreformations were | | | | | | performed. CERVICAL | | | | | | SPINE FINDINGS: There | | | | | | is no acute fracture. | | | | | | Vertebral bodyheights | | | | | | and intervertebral disc | | | | | | spaces are maintained. | | | | | | There isnormal | | | | | | alignment. No | | | | | | prevertebral soft tissue | | | | | | swelling is | | | | | | present.There is | | | | | | predominantly | | | | | | right-sided subcutaneous | | | | | | | | | | | | emphysema.Retropharyngea | | | | | | l emphysema is also | | | | | | identified. THORACIC AND | | | | | | LUMBAR SPINE FINDINGS: | | | | | | There is no acute | | | | | | fractureinvolving the | | | | | | thoracic or lumbar | | | | | | spine. The vertebral | | | | | | body heightsand | | | | | | intervertebral disc | | | | | | spaces are maintained, | | | | | | and there is | | | | | | normalalignment. There | | | | | | are mild scattered | | | | | | degenerative changes | | | | | | present.There are mildly | | | | | | displaced fractures | | | | | | involving the posterior | | | | | | rightfifth, sixth, and | | | | | | seventh ribs. There is a | | | | | | right-sided chest tube | | | | | | present and a small | | | | | | residual | | | | | | rightpneumothorax. | | | | | | Moderate | | | | | | pneumomediastinum is | | | | | | present. | | | | | | Subcutaneousemphysema | | | | | | is seen both posteriorly | | | | | | and anteriorly within | | | | | | the chest.There is small | | | | | | bilateral pleural fluid | | | | | | and bibasilar | | | | | | atelectasis. IMPRESSION: | | | | | | 1. No cervical, | | | | | | thoracic, or lumbar | | | | | | spine fracture. 2. | | | | | | Mildly displaced | | | | | | fractures involving the | | | | | | posterior right | | | | | | fifth,sixth, and seventh | | | | | | ribs. 3. Small right | | | | | | pneumothorax, | | | | | | pneumomediastinum and | | | | | | scatteredsubcutaneous | | | | | | emphysema. END | | | | | | IMPRESSION: | | | | + + + + + + + + | Specimen | + + | | + + + +---------+ + + | Performing | Address | City/State/Zipcode | Phone Number | | Organization | | | | + +---------+ + + | [facility] DEPARTMENT | | | | | RADIOLOGY | | | | + +---------+ + + documented in this encounter Visit Diagnoses Not on filedocumented in this encounter"
--- OUTSIDE RECORDS SUMMARY | ~2019-05-02 | XMS | Encounter Summary ---
Demographics + + + | Address | [address] | | | [place] [address] | + + + | Home Phone | | + + + | Preferred Language | Unknown | + + + | Marital Status | | + + + | Baptist Affiliation | 1041 | + + + | Race | Unknown | + + + | Ethnic Group | Unknown | + + + Author + + + | Author | [facility] | | | and [place] | + + + | Organization | [facility] | | | and [place] | + + + | Address | Unknown | + + + | Phone | Unavailable | + + + Support + + + + + | Name | Relationship | Address | Phone | + + + + + | Shlomo Holliday | ECON | [address] | | | | | [place] | | | | | [address] | | + + + + + Care Team Providers + +------+ + | Care Surveillance Director Name | Role | Phone | + +------+ + | Manjit Patterson PCP | | + +------+ + Encounter Details +--------+ + + + + | Date | Type | Department | Care Team | Description | +--------+ + + + + | 11/26/ | Orders Only | [facility] | Provider, | | | 2018 | | SYSTEM GENERIC OP | MD [address] | | | | | CONVERSION [address] | [address] | | | | | [address] [place], [place] | [place] [address] | | | | | [address] | | | | | | [phone] | | | +--------+ + + + [...]
--- OUTSIDE RECORDS SUMMARY | ~2019-05-02 | XMS | Encounter Summary ---
Demographics + + + | Address | [address] | | | [place] [address] | + + + | Home Phone [...] + | Shlomo Holliday | ECON | [address] | | | | | [place] | | | | | [address] | | + + + + + Care Team Providers + +------+ + | Care Director Of Music Therapy Name | Role | Phone | + +------+ + | Manjit Patterson PCP | | + +------+ + Encounter Details +--------+ + + + + | Date | Type | Department | Care Team | Description | +--------+ + + + + | 12/30/ | Anesthesia | [facility] | Capo Salgado DO | | | 2019 | Event | [facility] | [address] | | | | | [address] | [place] [address] | | | | | [address] | [phone] | | | | | [place], [place] | | | | | | [address] | | | | | | [phone] | | | +--------+ + + + [...] 12/30/18 0846 by | | emily | [id number] catheter system; | Allison Mccann, | Olimpia [...] | documentation. Performing provider: Capo Salgado DO Baseball Hand Sewer: | | | SUR[place] Cooper | | [...] | |Performing provider: Capo Salgado DO | |Baseball Hand Sewer: SURIND[place] Cooper | + + documented in [...]
--- OUTSIDE RECORDS SUMMARY | ~2019-05-02 | XMS | Encounter Summary ---
Demographics + + + | Address | [address] | | | [place] [address] | + + + | Home Phone | | + + + | Preferred Language | Unknown | + + + | Marital Status | | + + + | Latter Day Affiliation | NON | + + + | Race | or | + + + | Ethnic Group | Not or | + + + Author + + + | Author | [facility] | + + + | Organization | [facility] | + + + | Address | Unknown | + + + | Phone | Unavailable | + + + Support + + +---------+ + | Name | Relationship | Address | Phone | + + +---------+ + | Shlomo Holliday | ECON | Unknown | | + + +---------+ + Care Team Providers + +------+ + | Care Concrete Sculptor Name | Role | Phone | + [...] [address] | | | | | | [place], [place] | | | | | | [address] | | | | | | [phone] | | | +--------+ + + + [...] | | + +---------+ + + | [facility] DEPARTMENT OF | | | | | [...] | | + +---------+ + + | [facility] DEPARTMENT OF | | | | | [...] | | + +---------+ + + | [facility] DEPARTMENT OF | | | | | [...] | | + +---------+ + + | [facility] DEPARTMENT | | | | | RADIOLOGY | | | | + +---------+ + + documented in this encounter Visit Diagnoses Not on filedocumented in this encounter"
--- OUTSIDE RECORDS SUMMARY | ~2019-05-02 | XMS | Encounter Summary ---
Demographics + + + | Address | [address] | | | [place] [address] | + + + | Home Phone | | + + + | Preferred Language | Unknown | + + + | Marital Status | | + + + | Baptist Affiliation | 1041 | + + + | Race | Unknown | + + + | Ethnic Group | Unknown | + + + Author + + + | Author | [facility] | | | and [place] | + + + | Organization | [facility] | | | and [place] | + + + | Address | Unknown | + + + | Phone | Unavailable | + + + Support + + + + + | Name | Relationship | Address | Phone | + + + + + | Shlomo Holliday | ECON | [address] | | | | | [place] | | | | | [address] | | + + + + + Care Team Providers + +------+ + | Care Dress Finisher Name | Role | Phone | + [...] | | | | [address] | [place] [address] | | | | | [place], [place] | [phone] | | | | | [address] | | | | | | [phone] | | | +--------+ + + + [...] | Procedure Note | + + | Gasepr Latif - 01/09/2019 9:11 AM PDT | [...]
--- OUTSIDE RECORDS SUMMARY | ~2019-05-02 | XMS | Encounter Summary ---
Demographics + + + | Address | [address] | | | [place] [address] | + + + | Home Phone [...] + + + | Author | [facility] | | | and [place] | + + + | Organization | [facility] | | | and [place] | + + + | Address | Unknown | + + + | Phone | Unavailable | + + + Support + + + + + | Name | Relationship | Address | Phone | + + + + + | Shlomo Holliday | ECON | [address] | | | | | [place] | | | | | [address] | | + + + + + Care Team Providers + +------+ + | Care Composition Molder Name | Role | Phone | + [...] | | | Right | [place] | [place] | | | | | Arthrogram w | [address] | [place], | | | | | Contrast | Phone: | [place] [address] | | | | | | [phone] | Phone: | | | | | | Fax: | [phone] | | | | | | [phone] | Fax: | | | | | | | [phone] | +--------+--------+ + + + + Reason [...] + + | 02/07/ | Hospital | [facility] | Abdulaziz Winn, | Right wrist pain | | 2018 | Encounter | [facility] [address] | [address] | | | | | [place], | [place] | | | | | [place] [address] | [address] | | | | | [phone] | [phone] | | | | | | | [...] is being | | performed to correct childcare center administrator errors in the impression. There is a [...]
--- OUTSIDE RECORDS SUMMARY | ~2019-05-02 | XMS | Encounter Summary ---
Demographics + + + | Address | [address] | | | [place] [address] | + + + | Home Phone | | + + + | Preferred Language | Unknown | + + + | Marital Status | | + + + | Taoist Affiliation | NON | + + + | Race | or | + + + | Ethnic Group | Not or | + + + Author + + + | Author | [facility] | + + + | Organization | [facility] | + + + | Address | Unknown | + + + | Phone | Unavailable | + + + Support + + +---------+ + | Name | Relationship | Address | Phone | + + +---------+ + | Shlomo Holliday | ECON | Unknown | | + + +---------+ + Care Team Providers + +------+ + | Care Roll Or Tape Edge Machine Operator Name | Role | Phone | + +------+ + | Francisco Estrada | PCP | Unavailable | + +------+ + Encounter Details +--------+ + + + + | Date | Type | Department | Care Team | Description | +--------+ + + + + | 12/18/ | Hospital | Registration [address] | Sandra Renteria, | | | 2005 | Activity | [address] | [address] | | | | | Adrián Mailcode: [id number] | [address] | | | | | [place], [place] | [place], [place] | | | | | [address] | [address] | | | | | [phone] | [phone] | | | | | | | [...]
--- OUTSIDE RECORDS SUMMARY | ~2019-05-02 | XMS | Encounter Summary ---
Demographics + + + | Address | [address] | | | [place] [address] | + + + | Home Phone | | + + + | Preferred Language | Unknown | + + + | Marital Status | | + + + | Congregational Affiliation | 1041 | + + + | Race | Unknown | + + + | Ethnic Group | Unknown | + + + Author + + + | Author | [facility] | | | and [place] | + + + | Organization | [facility] | | | and [place] | + + + | Address | Unknown | + + + | Phone | Unavailable | + + + Support + + + + + | Name | Relationship | Address | Phone | + + + + + | Shlomo Holliday | ECON | [address] | | | | | [place] | | | | | [address] | | + + + + + Care Team Providers + +------+ + | Care Surveillance Systems Engineer Name | Role | Phone | [...] | [address], [place] | [place] [address] | | | | | [address] | [phone] | | | | | [phone] | | | +--------+ + + + [...]
--- OUTSIDE RECORDS SUMMARY | ~2019-05-02 | XMS | Encounter Summary ---
Demographics + + + | Address | [address] | | | [place] [address] | + + + | Home Phone [...] + + + | Author | [facility] | + + + | Organization | [facility] | + + + | Address | Unknown | + + + | Phone | Unavailable | + + + Support + + +---------+ + | Name | Relationship | Address | Phone | + + +---------+ + | Shlomo Holliday | ECON | Unknown | | + + +---------+ + Care Team Providers + +------+ + | Care Other Sports Official Name | Role | Phone | + +------+ + | Francisco Estrada PCP | Unavailable | + +------+ + Encounter Details +--------+ + + + + | Date | Type | Department | Care Team | Description | +--------+ + + + + | 11/06/ | Hospital | Registration [id number] | Colton Werner MD | | | 2004 | Activity | [address] | | | | | | Adrián Mailcode: [id number] | | | | | | [place], [place] | | | | | | [address] | | | | | | [phone] | | | +--------+ + + + [...] | BASIC METABOLIC SET | Routin | 11/15/2004 | | Results for this | | (NA, K, CL, TCO2, | e | 6:10 AM | | procedure are in the | | BUN, CR, GLU, CA) | | PDT | | results section. | + +--------+ + + + | CBC ONLY | Routin | 11/15/2004 | | Results for this | | | e | 6:10 AM | | procedure are in the | | | | PDT | | results section. | + +--------+ + + + | CT KNEE RT WO | Routin | 11/11/2004 | | Results for this | | CONTRAST | e | 10:40 PM | | procedure are in the | | | | PDT | | results section. | + +--------+ + + + | X-RAY CHEST 2 VIEW | Routin | 11/11/2004 | | Results for this | | | e | 3:45 PM | | procedure are in the | | | | PDT | | results section. | + +--------+ + + + | X-RAY KNEE 2 VIEWS | Routin | 11/10/2004 | | Results for this | | RIGHT | e | 2:24 PM | | procedure are in the | | | | PDT | | results section. | + +--------+ + + + | BASIC METABOLIC SET | Routin | 11/09/2004 | | Results for this | | (NA, K, CL, TCO2, | e | 10:01 AM | | procedure are in the | | BUN, CR, GLU, CA) | | PDT | | results section. | + +--------+ + + + | CK, PLASMA | Routin | 11/09/2004 | | Results for this | | | e | 10:01 AM | | procedure are in the | | | | PDT | | results section. | + +--------+ + + + | BASIC METABOLIC SET | Routin | 11/08/2004 | | Results for this | | (NA, K, CL, TCO2, | e | 6:12 PM | | procedure are in the | | BUN, CR, GLU, CA) | | PDT | | results section. | + +--------+ + + + | CBC ONLY | Routin | 11/08/2004 | | Results for this | | | e | 6:12 PM | | procedure are in the | | | | PDT | | results section. | + +--------+ + + + | PHOSPHORUS, PLASMA | Routin | 11/08/2004 | | Results for this | | | e | 6:12 PM | | procedure are in the | | | | PDT | | results section. | + +--------+ + + + | MAGNESIUM, PLASMA | Routin | 11/08/2004 | | Results for this | | | e | 6:12 PM | | procedure are in the | | | | PDT | | results section. | + +--------+ + + + | BASIC METABOLIC SET | Routin | 11/08/2004 | | Results for this | | (NA, K, CL, TCO2, | e | 2:01 PM | | procedure are in the | | BUN, CR, GLU, CA) | | PDT | | results section. | + +--------+ + + + | CBC ONLY | Routin | 11/08/2004 | | Results for this | | | e | 2:01 PM | | procedure are in the | | | | PDT | | results section. | + +--------+ + + + | PHOSPHORUS, PLASMA | Routin | 11/08/2004 | | Results for this | | | e | 2:01 PM | | procedure are in the | | | | PDT | | results section. | + +--------+ + + + | MAGNESIUM, PLASMA | Routin | 11/08/2004 | | Results for this | | | e | 2:01 PM | | procedure are in the | | | | PDT | | results section. | + +--------+ + + + | SLIDE REVIEW | Routin | 11/08/2004 | | Results for this | | | e | 5:47 AM | | procedure are in the | | | | PDT | | results section. | + +--------+ + + + | BASIC METABOLIC SET | Routin | 11/08/2004 | | Results for this | | (NA, K, CL, TCO2, | e | 5:47 AM | | procedure are in the | | BUN, CR, GLU, CA) | | PDT | | results section. | + +--------+ + + + | CBC ONLY | Routin | 11/08/2004 | | Results for this | | | e | 5:47 AM | | procedure are in the | | | | PDT | | results section. | + +--------+ + + + | CK, PLASMA | Routin | 11/08/2004 | | Results for this | | | e | 5:47 AM | | procedure are in the | | | | PDT | | results section. | + +--------+ + + + | CK, PLASMA | Urgent | 11/07/2004 | | Results for this | | | | 2:25 PM | | procedure are in the | | | | PDT | | results section. | + +--------+ + + + | CBC ONLY | Urgent | 11/07/2004 | | Results for this | | | | 8:25 AM | | procedure are in the | | | | PDT | | results section. | + +--------+ + + + | CK, PLASMA | Urgent | 11/07/2004 | | Results for this | | | | 8:25 AM | | procedure are in the | | | | PDT | | results section. | + +--------+ + + + | X-RAY CHEST 1 VIEW | Specif | 11/07/2004 | | Results for this | | | ic | 7:00 AM | | procedure are in the | | | (Rad | PDT | | results section. | | | orders | | | | | | only) | | | | + +--------+ + + + | BASIC METABOLIC SET | Urgent | 11/07/2004 | | Results for this | | (NA, K, CL, TCO2, | | 3:40 AM | | procedure are in the | | BUN, CR, GLU, CA) | | PDT | | results section. | + +--------+ + + + | PHOSPHORUS, PLASMA | Urgent | 11/07/2004 | | Results for this | | | | 3:40 AM | | procedure are in the | | | | PDT | | results section. | + +--------+ + + + | MAGNESIUM, PLASMA | Urgent | 11/07/2004 | | Results for this | | | | 3:40 AM | | procedure are in the | | | | PDT | | results section. | + +--------+ + + + | BASIC METABOLIC SET | Urgent | 11/07/2004 | | Results for this | | (NA, K, CL, TCO2, | | 2:35 AM | | procedure are in the | | BUN, CR, GLU, CA) | | PDT | | results section. | + +--------+ + + + | HEMATOCRIT | Urgent | 11/07/2004 | | Results for this | | | | 2:35 AM | | procedure are in the | | | | PDT | | results section. | + +--------+ + + + | CK, PLASMA | Urgent | 11/07/2004 | | Results for this | | | | 2:35 AM | | procedure are in the | | | | PDT | | results section. | + +--------+ + + + | CT CHEST W CONTRAST | Urgent | 11/07/2004 | | Results for this | | | | 1:20 AM | | procedure are in the | | | | PDT | | results section. | + +--------+ + + + | X-RAY TIBIA & FIBULA | Urgent | 11/06/2004 | | Results for this | | 2 VIEWS LT | | 11:45 PM | | procedure are in the | | | | PDT | | results section. | + +--------+ + + + | X-RAY CHEST 1 VIEW | Urgent | 11/06/2004 | | Results for this | | | | 11:45 PM | | procedure are in the | | | | PDT | | results section. | + +--------+ + + + | X-RAY SHOULDER 2 | Urgent | 11/06/2004 | | Results for this | | VIEWS RIGHT | | 11:01 PM | | procedure are in the | | | | PDT | | results section. | + +--------+ + + + | BLOOD BANK PRODUCT | Routin | 11/06/2004 | | Results for this | | | e | 10:41 PM | | procedure are in the | | | | PDT | | results section. | + +--------+ + + + | BLOOD BANK PRODUCT | Routin | 11/06/2004 | | Results for this | | | e | 10:41 PM | | procedure are in the | | | | PDT | | results section. | + +--------+ + + + | TYPE AND CROSSMATCH | Routin | 11/06/2004 | | Results for this | | | e | 10:41 PM | | procedure are in the | | | | PDT | | results section. | + +--------+ + + + | SLIDE REVIEW | Urgent | 11/06/2004 | | Results for this | | | | 10:31 PM | | procedure are in the | | | | PDT | | results section. | + +--------+ + + + | INR | Urgent | 11/06/2004 | | Results for this | | | | 10:31 PM | | procedure are in the | | | | PDT | | results section. | + +--------+ + + + | TROPONIN I, PLASMA | Urgent | 11/06/2004 | | Results for this | | | | 10:31 PM | | procedure are in the | | | | PDT | | results section. | + +--------+ + + + | BASIC METABOLIC SET | Urgent | 11/06/2004 | | Results for this | | (NA, K, CL, TCO2, | | 10:31 PM | | procedure are in the | | BUN, CR, GLU, CA) | | PDT | | results section. | + +--------+ + + + | CBC ONLY | Urgent | 11/06/2004 | | Results for this | | | | 10:31 PM | | procedure are in the | | | | PDT | | results section. | + +--------+ + + + | APTT (ACT. PART. | Urgent | 11/06/2004 | | Results for this | | THROMBO TIME) | | 10:31 PM | | procedure are in the | | | | PDT | | results section. | + +--------+ + + + | ETHANOL (ALCOHOL), | Urgent | 11/06/2004 | | Results for this | | BLOOD | | 10:31 PM | | procedure are in the | | | | PDT | | results section. | + +--------+ + + + | CK, PLASMA | Urgent | 11/06/2004 | | Results for this | | | | 10:31 PM | | procedure are in the | | | | PDT | | results section. | + +--------+ + + + documented in this encounter Results BASIC METABOLIC SET (11/15/2004 6:10 AM PDT) + +---------+ + + + | Component | Value | Ref Range | Performed | Pathologist | | | | | At | Signature | + +---------+ + + + | GLUCOSE, | 97 | 65 - 110 mg/dL | [facility] | | | PLASMA | | | DEPARTMENT | | | (LAB) | | | OF | | | | | | PATHOLOGY | | + +---------+ + + + | BUN, PLASMA | 11 | 6 - 20 mg/dL | [facility] | | | (LAB) | | | DEPARTMENT | | | | | | OF | | | | | | PATHOLOGY | | + +---------+ + + + | CREATININE | 1.0 | 0.7 - 1.3 mg/dL | [facility] | | | PLASMA | | | DEPARTMENT | | | (LAB) | | | OF | | | | | | PATHOLOGY | | + +---------+ + + + | SODIUM, | 132 (L) | 136 - 145 | [facility] | | | PLASMA | | mmol/L | DEPARTMENT | | | (LAB) | | | OF | | | | | | PATHOLOGY | | + +---------+ + + + | POTASSIUM, | 3.4 (L) | 3.5 - 5.1 | [facility] | | | PLASMA | | mmol/L | DEPARTMENT | | | (LAB) | | | OF | | | | | | PATHOLOGY | | + +---------+ + + + | CHLORIDE, | 92 (L) | 98 - 107 mmol/L | [facility] | | | PLASMA | | | DEPARTMENT | | | (LAB) | | | OF | | | | | | PATHOLOGY | | + +---------+ + + + | TOTAL CO2, | 30 (H) | 23 - 29 mmol/L | [facility] | | | PLASMA | | | DEPARTMENT | | | (LAB) | | | OF | | | | | | PATHOLOGY | | + +---------+ + + + | CALCIUM, | 7.8 (L) | 8.5 - 10.5 | [facility] | | | PLASMA | | mg/dL | DEPARTMENT | | | (LAB) | | | OF | | | | | | PATHOLOGY | | + +---------+ + + + + + | Specimen | + + | | + + + + + + + | Performing | Address | City/State/Zipcode | Phone Number | | Organization | | | | + + + + + | [facility] DEPARTMENT [facility] | [address] | [place] [address] | | | PATHOLOGY | [address] | | | + + + + + | [facility]MENT [facility] | [address] | [place] [address] | | | PATHOLOGY | [address] | | | + + + + + CBC ONLY WITH PLATELET (11/15/2004 6:10 AM PDT) + + + + + + | Component | Value | Ref Range | Performed | Pathologist | | | | | At | Signature | + + + + + + | WHITE CELL | 12.2 (H) | 4.4 - 11.0 K/cu | [facility] | | | COUNT | | mm | DEPARTMENT | | | | | | OF | | | | | | PATHOLOGY | | + + + + + + | RED CELL | 3.58 (L) | 4.50 - 5.90 | [facility] | | | COUNT | | M/cu mm | DEPARTMENT | | | | | | OF | | | | | | PATHOLOGY | | + + + + + + | HEMOGLOBIN | 10.6 (L) | 13.5 - 17.5 | [facility] | | | | | g/dL | DEPARTMENT | | | | | | OF | | | | | | PATHOLOGY | | + + + + + + | HEMATOCRIT | 30.5 (L) | 41.0 - 53.0 % | [facility] | | | | | | DEPARTMENT | | | | | | OF | | | | | | PATHOLOGY | | + + + + + + | MCV | 85.1 | 80.0 - 96.0 fL | [facility] | | | | | | DEPARTMENT | | | | | | OF | | | | | | PATHOLOGY | | + + + + + + | MCHC | 34.9 | 33.4 - 35.5 | [facility] | | | | | g/dL | DEPARTMENT | | | | | | OF | | | | | | PATHOLOGY | | + + + + + + | RDW | 14.1 | 11.5 - 15.0 % | [facility] | | | | | | DEPARTMENT | | | | | | OF | | | | | | PATHOLOGY | | + + + + + + | PLATELET | 272 | 150 - 400 K/cu | [facility] | | | COUNT | | mm | DEPARTMENT | | | | | | OF | | | | | | PATHOLOGY | | + + + + + + + + | Specimen | + + | | + + + + + | Narrative | Performed At | + + + | New reference ranges for RBC, HGB, and HCT in effect 10/20/04. | [facility] | | | DEPARTMENT OF | | | PATHOLOGY | + + + + + + + + | Performing | Address | City/State/Zipcode | Phone Number | | Organization | | | | + + + + + | [facility] DEPARTMENT [facility] | [address] | [place] [address] | | | PATHOLOGY | [address] | | | + + + + + | [facility] DEPARTMENT OF | [address] | [place] [address] | | | PATHOLOGY | [address] | | | + + + + + CT KNEE RT WO CONTRAST (11/11/2004 10:40 PM PDT) + + + + + + | Component | Value | Ref Range | Performed | Pathologist | | | | | At | Signature | + + + + + + | CT KNEE RT | Radiologist 1: CHRISTINA, | | | | | WO CONTRAST | Tramaine WHEELER M.D.CT SCAN | | | | | | OF THE RIGHT KNEE | | | | | | WITHOUT INTRAVENOUS | | | | [...] | | | + +---------+ + + CHEST 2 VIEW (11/11/2004 3:45 PM PDT) + + + + + + | Component | Value | Ref Range | Performed | Pathologist | | | | | At | Signature | + + + + + + | CHEST, 2 | Radiologist 1: PACO, | | | | | VIEWS [place] | Gallo RAMIREZ chest. | | | | | STEREO | Comparison 11-08-2004. | | | | | | Stable cardiomegaly with | | | | | | layering right pleural | | | | | | effusion andextensive | | | | | | bibasilar atelectasis. | | | | | | No definite | | | | | | pneumothorax | | | | | | seenalthough study | | | | | | limited by patient body | | | | | | habitus. Right chest | | | | | | tuberemoved. CONCLUSION: | | | | | | 1. No definite | | | | | | pneumothorax following | | | | | | chest tube removal. | | | | | | Addendum # 1 by Iliana | | | | | | MD Paco on 15-Nov-2004 | | | | | | 13:12 Two view chest. | | | | | | Streaky linear lucencies | | | | | | projected over the | | | | | | anterior hemithorax | | | | | | onthe lateral view, | | | | | | likely representing | | | | | | residual chest wall gas. | | | | | | Nodefinite | | | | | | pneumothorax. | | | | + + + + + + + + | Specimen | + + | | + + + +---------+ + + | Performing | Address | City/State/Zipcode | Phone Number | | Organization | | | | + +---------+ + + | [facility] DEPARTMENT OF | | | | | RADIOLOGY | | | | + +---------+ + + KNEE 2 VIEWS RIGHT (11/10/2004 2:24 PM PDT) + + + + + + | Component | Value | Ref Range | Performed | Pathologist | | | | | At | Signature | + + + + + + | KNEE 2 | Radiologist 1: CHRISTINA | | | | | VIEWS RIGHT | Tramaine WHEELER | | | | | | Ramon-Radiologist 2: | | | | | | SILVIA, AIJIROSTUDY: | | | | | | Right knee AP and cross | | | | | | table lateral views | | | | | | COMPARISON: None | | | | | | CLINICAL DATA: Trauma | | | | | | FINDINGS: There is a | | | | | | nondisplaced, | | | | | | intra-articular, lateral | | | | | | tibial plateaufracture | | | | | | with mild incongruenty | | | | | | of the articular | | | | | | surface. Amoderate | | | | | | joint effusion is seen | | | | | | within the suprapatellar | | | | | | recess. There is | | | | | | moderate lateral | | | | | | compartment joint space | | | | | | narrowing andspurring. | | | | | | The medial compartment | | | | | | joint space is | | | | | | normal.Chondrocalcinosis | | | | | | of the lateral | | | | | | compartment is seen. | | | | | | Minimalspurring of the | | | | | | superior pole patella is | | | | | | present. Soft | | | | | | tissueswelling is | | | | | | present around the right | | | | | | knee. IMPRESSION: 1. | | | | | | Nondisplaced, | | | | | | intra-articular, lateral | | | | | | tibial plateau | | | | | | fracturewith minimal | | | | | | incongruenty of the | | | | | | articular surface. 2. | | | | | | Moderate knee joint | | | | | | effusion. 3. Moderate | | | | | | degenerative joint | | | | | | disease of the | | | | | | lateralcompartment. | | | | + + + [...] + +---------+ + + BASIC METABOLIC SET (11/09/2004 10:01 AM PDT) + + + + + + | Component | Value | Ref Range | Performed | Pathologist | | | | | At | Signature | + + + + + + | GLUCOSE, | See cmnt | 65 - 110 mg/dL | [facility] | | | PLASMA | | | DEPARTMENT | | | (LAB) | | | OF | | | | | | PATHOLOGY | | + + + + + + | BUN, PLASMA | See cmnt | 6 - 20 mg/dL | [facility] | | | (LAB) | | | DEPARTMENT | | | | | | OF | | | | | | PATHOLOGY | | + + + + + + | CREATININE | See cmnt | 0.7 - 1.3 mg/dL | [facility] | | | PLASMA | | | DEPARTMENT | | | (LAB) | | | OF | | | | | | PATHOLOGY | | + + + + + + | SODIUM, | See cmnt | 136 - 145 | [facility] | | | PLASMA | | mmol/L | DEPARTMENT | | | (LAB) | | | OF | | | | | | PATHOLOGY | | + + + + + + | POTASSIUM, | See cmnt | 3.5 - 5.1 | [facility] | | | PLASMA | | mmol/L | DEPARTMENT | | | (LAB) | | | OF | | | | | | PATHOLOGY | | + + + + + + | CHLORIDE, | See cmnt | 98 - 107 mmol/L | [facility] | | | PLASMA | | | DEPARTMENT | | | (LAB) | | | OF | | | | | | PATHOLOGY | | + + + + + + | TOTAL CO2, | See cmnt | 23 - 29 mmol/L | [facility] | | | PLASMA | | | DEPARTMENT | | | (LAB) | | | OF | | | | | | PATHOLOGY | | + + + + + + | CALCIUM, | See cmnt | 8.5 - 10.5 | [facility] | | | PLASMA | | mg/dL | DEPARTMENT | | | (LAB) | | | OF | | | | | | PATHOLOGY | | + + + + + + | POTASSIUM | See cmnt | | [facility] | | | CMNT | | | DEPARTMENT | | | | | | OF | | | | | | PATHOLOGY | | + + + + + + + + | Specimen | + + | | + + + + + | Narrative | Performed At | + + + | No site available, specimen not obtained.2X | [facility] | | | DEPARTMENT OF | | | PATHOLOGY | + + + + + + + + | Performing | Address | City/State/Zipcode | Phone Number | | Organization | | | | + + + + + | [facility] DEPARTMENT [facility] | [address] | [place] [address] | | | PATHOLOGY | [address] | | | + + + + + | [facility] DEPARTMENT | [address] | [place] [address] | | | PATHOLOGY | [address] | | | + + + + + CK (11/09/2004 10:01 AM PDT) + + + + + + | Component | Value | Ref Range | Performed | Pathologist | | | | | At | Signature | + + + + + + | CK | See cmnt | 49 - 397 U/L | [facility] | | | | | | DEPARTMENT | | | | | | OF | | | | | | PATHOLOGY | | + + + + + + + + | Specimen | + + | | + + + + + | Narrative | Performed At | + + + | No site available, specimen not obtained.2X | [facility] | | | DEPARTMENT OF | | | PATHOLOGY | + + + + + + + + | Performing | Address | City/State/Zipcode | Phone Number | | Organization | | | | + + + + + | [facility] DEPARTMENT [facility] | [address] | [place] [address] | | | PATHOLOGY | [address] | | | + + + + + | [facility] DEPARTMENT | [address] | [place] [address] | | | PATHOLOGY | [address] | | | + + + + + CBC ONLY WITH PLATELET (11/08/2004 6:12 PM PDT) + + + + + + | Component | Value | Ref Range | Performed | Pathologist | | | | | At | Signature | + + + + + + | WHITE CELL | 18.0 (H) | 4.4 - 11.0 K/cu | [facility] | | | COUNT | | mm | DEPARTMENT | | | | | | OF | | | | | | PATHOLOGY | | + + + + + + | RED CELL | 4.33 (L) | 4.50 - 5.90 | [facility] | | | COUNT | | M/cu mm | DEPARTMENT | | | | | | OF | | | | | | PATHOLOGY | | + + + + + + | HEMOGLOBIN | 12.8 (L) | 13.5 - 17.5 | [facility] | | | | | g/dL | DEPARTMENT | | | | | | OF | | | | | | PATHOLOGY | | + + + + + + | HEMATOCRIT | 37.1 (L) | 41.0 - 53.0 % | [facility] | | | | | | DEPARTMENT | | | | | | OF | | | | | | PATHOLOGY | | + + + + + + | MCV | 85.6 | 80.0 - 96.0 fL | [facility] | | | | | | DEPARTMENT | | | | | | OF | | | | | | PATHOLOGY | | + + + + + + | MCHC | 34.4 | 33.4 - 35.5 | [facility] | | | | | g/dL | DEPARTMENT | | | | | | OF | | | | | | PATHOLOGY | | + + + + + + | RDW | 14.1 | 11.5 - 15.0 % | [facility] | | | | | | DEPARTMENT | | | | | | OF | | | | | | PATHOLOGY | | + + + + + + | PLATELET | 161 | 150 - 400 K/cu | [facility] | | | COUNT | | mm | DEPARTMENT | | | | | | OF | | | | | | PATHOLOGY | | + + + + + + + + | Specimen | + + | | + + + + + | Narrative | Performed At | + + + | New reference ranges for RBC, HGB, and HCT in effect 10/20/04. | [facility] | | | DEPARTMENT OF | | | PATHOLOGY | + + + + + + + + | Performing | Address | City/State/Zipcode | Phone Number | | Organization | | | | + + + + + | [facility] DEPARTMENT OF | [address] [place] [address] | [place] [address] | | | PATHOLOGY | [address] | | | + + + + + | [facility] DEPARTMENT OF | [address] | [place] [address] | | | PATHOLOGY | [address] | | | + + + + + BASIC METABOLIC SET (11/08/2004 6:12 PM PDT) + +---------+ + + + | Component | Value | Ref Range | Performed | Pathologist | | | | | At | Signature | + +---------+ + + + | GLUCOSE, | 144 (H) | 65 - 110 mg/dL | [facility] | | | PLASMA | | | DEPARTMENT | | | (LAB) | | | OF | | | | | | PATHOLOGY | | + +---------+ + + + | BUN, PLASMA | 31 (H) | 6 - 20 mg/dL | [facility] | | | (LAB) | | | DEPARTMENT | | | | | | OF | | | | | | PATHOLOGY | | + +---------+ + + + | CREATININE | 1.9 (H) | 0.7 - 1.3 mg/dL | [facility] | | | PLASMA | | | DEPARTMENT | | | (LAB) | | | OF | | | | | | PATHOLOGY | | + +---------+ + + + | SODIUM, | 132 (L) | 136 - 145 | [facility] | | | PLASMA | | mmol/L | DEPARTMENT | | | (LAB) | | | OF | | | | | | PATHOLOGY | | + +---------+ + + + | POTASSIUM, | 4.9 | 3.5 - 5.1 | [facility] | | | PLASMA | | mmol/L | DEPARTMENT | | | (LAB) | | | OF | | | | | | PATHOLOGY | | + +---------+ + + + | CHLORIDE, | 100 | 98 - 107 mmol/L | [facility] | | | PLASMA | | | DEPARTMENT | | | (LAB) | | | OF | | | | | | PATHOLOGY | | + +---------+ + + + | TOTAL CO2, | 24 | 23 - 29 mmol/L | [facility] | | | PLASMA | | | DEPARTMENT | | | (LAB) | | | OF | | | | | | PATHOLOGY | | + +---------+ + + + | CALCIUM, | 7.9 (L) | 8.5 - 10.5 | [facility] | | | PLASMA | | mg/dL | DEPARTMENT | | | (LAB) | | | OF | | | | | | PATHOLOGY | | + +---------+ + + + + + | Specimen | + + | | + + + + + + + | Performing | Address | City/State/Zipcode | Phone Number | | Organization | | | | + + + + + | [facility] DEPARTMENT OF | [address] | [place] [address] | | | PATHOLOGY | [address] | | | + + + + + | [facility] DEPARTMENT OF | [address] | [place] [address] | | | PATHOLOGY | [address] | | | + + + + + PHOSPHORUS, PLASMA (11/08/2004 6:12 PM PDT) + +-------+ + + + | Component | Value | Ref Range | Performed | Pathologist | | | | | At | Signature | + +-------+ + + + | PHOSPHORUS, | 4.2 | 2.4 - 4.7 mg/dL | [facility] | | | PLASMA | | | [...] | + + + + + | [facility] | [address] | [place] [address] | | | PATHOLOGY | [address] | | | + + + + + | [facility] | [address] [place] [address] [address] | [place] [address] | | | PATHOLOGY | [address] | | | + + + + + MAGNESIUM, PLASMA (11/08/2004 6:12 PM PDT) + +-------+ + + + | Component | Value | Ref Range | Performed | Pathologist | | | | | At | Signature | + +-------+ + + + | MAGNESIUM,P | 2.2 | 1.8 - 2.5 mg/dL | [facility] | | | LASMA | | | DEPARTMENT | | | [...] + + | [facility] DEPARTMENT OF | [id number] | [place] [address] | | | PATHOLOGY | [address] | | | + + + + + | [facility] DEPARTMENT OF | [id number] | [place] [address] | | | PATHOLOGY | [address] | | | + + + + + CBC ONLY WITH PLATELET (11/08/2004 2:01 PM PDT) + + + + + + | Component | Value | Ref Range | Performed | Pathologist | | | | | At | Signature | + + + + + + | WHITE CELL | See cmnt | 4.4 - 11.0 K/cu | [facility] | | | COUNT | | mm | DEPARTMENT | | | | | | OF | | | | | | PATHOLOGY | | + + + + + + | RED CELL | See cmnt | 4.50 - 5.90 | [facility] | | | COUNT | | M/cu mm | DEPARTMENT | | | | | | OF | | | | | | PATHOLOGY | | + + + + + + | HEMOGLOBIN | See cmnt | 13.5 - 17.5 | [facility] | | | | | g/dL | DEPARTMENT | | | | | | OF | | | | | | PATHOLOGY | | + + + + + + | HEMATOCRIT | See cmnt | 41.0 - 53.0 % | [facility] | | | | | | DEPARTMENT | | | | | | OF | | | | | | PATHOLOGY | | + + + + + + | MCV | See cmnt | 80.0 - 96.0 fL | [facility] | | | | | | DEPARTMENT | | | | | | OF | | | | | | PATHOLOGY | | + + + + + + | MCHC | See cmnt | 33.4 - 35.5 | [facility] | | | | | g/dL | DEPARTMENT | | | | | | OF | | | | | | PATHOLOGY | | + + + + + + | RDW | See cmnt | 11.5 - 15.0 % | [facility] | | | | | | DEPARTMENT | | | | | | OF | | | | | | PATHOLOGY | | + + + + + + | PLATELET | See cmnt | 150 - 400 K/cu | [facility] | | | COUNT | | mm | DEPARTMENT | | | | | | OF | | | | | | PATHOLOGY | | + + + + + + + + | Specimen | + + | | + + + + + | Narrative | Performed At | + + + | New reference ranges for RBC, HGB, and HCT in effect 10/20/04. 2X | [facility] | | | DEPARTMENT OF | | | PATHOLOGY | + + + + + + + + | Performing | Address | City/State/Zipcode | Phone Number | | Organization | | | | + + + + + | [facility] DEPARTMENT [facility] | [address] [place] [address] | [place] [address] | | | PATHOLOGY | [address] | | | + + + + + | [facility] DEPARTMENT [facility] | [facility] | [place] [address] | | | PATHOLOGY | [address] | | | + + + + + BASIC METABOLIC SET (11/08/2004 2:01 PM PDT) + + + + + + | Component | Value | Ref Range | Performed | Pathologist | | | | | At | Signature | + + + + + + | GLUCOSE, | See cmnt | 65 - 110 mg/dL | [facility] | | | PLASMA | | | DEPARTMENT | | | (LAB) | | | OF | | | | | | PATHOLOGY | | + + + + + + | BUN, PLASMA | See cmnt | 6 - 20 mg/dL | [facility] | | | (LAB) | | | DEPARTMENT | | | | | | OF | | | | | | PATHOLOGY | | + + + + + + | CREATININE | See cmnt | 0.7 - 1.3 mg/dL | [facility] | | | PLASMA | | | DEPARTMENT | | | (LAB) | | | OF | | | | | | PATHOLOGY | | + + + + + + | SODIUM, | See cmnt | 136 - 145 | [facility] | | | PLASMA | | mmol/L | DEPARTMENT | | | (LAB) | | | OF | | | | | | PATHOLOGY | | + + + + + + | POTASSIUM, | See cmnt | 3.5 - 5.1 | [facility] | | | PLASMA | | mmol/L | DEPARTMENT | | | (LAB) | | | OF | | | | | | PATHOLOGY | | + + + + + + | CHLORIDE, | See cmnt | 98 - 107 mmol/L | [facility] | | | PLASMA | | | DEPARTMENT | | | (LAB) | | | OF | | | | | | PATHOLOGY | | + + + + + + | TOTAL CO2, | See cmnt | 23 - 29 mmol/L | [facility] | | | PLASMA | | | DEPARTMENT | | | (LAB) | | | OF | | | | | | PATHOLOGY | | + + + + + + | CALCIUM, | See cmnt | 8.5 - 10.5 | [facility] | | | PLASMA | | mg/dL | DEPARTMENT | | | (LAB) | | | OF | | | | | | PATHOLOGY | | + + + + + + | POTASSIUM | See cmnt | | [facility] | | | CMNT | | | DEPARTMENT | | | | | | OF | | | | | | PATHOLOGY | | + + + + + + + + | Specimen | + + | | + + + + + | Narrative | Performed At | + + + | Unable to draw specimen. Phlebotomy attempted 2x | [facility] | | | DEPARTMENT OF | | | PATHOLOGY | + + + + + + + + | Performing | Address | City/State/Zipcode | Phone Number | | Organization | | | | + + + + + | [facility] DEPARTMENT OF | [address] | [place] [address] | | | PATHOLOGY | [address] | | | + + + + + | [facility] DEPARTMENT OF | [address] [place] [address] | [place] [address] | | | PATHOLOGY | [address] | | | + + + + + PHOSPHORUS, PLASMA (11/08/2004 2:01 PM PDT) + + + + + + | Component | Value | Ref Range | Performed | Pathologist | | | | | At | Signature | + + + + + + | PHOSPHORUS, | See cmnt | 2.4 - 4.7 mg/dL | [facility] | | | PLASMA | | | DEPARTMENT | | | (LAB) | | | OF | | | | | | PATHOLOGY | | + + + + + + + + | Specimen | + + | | + + + + + | Narrative | Performed At | + + + | Unable to draw specimen. Phlebotomy attempted 2x | [facility] | | | DEPARTMENT OF | | | PATHOLOGY | + + + + + + + + | Performing | Address | City/State/Zipcode | Phone Number | | Organization | | | | + + + + + | [facility] DEPARTMENT OF | [address] | [place] [address] | | | PATHOLOGY | [address] | | | + + + + + | [facility] DEPARTMENT OF | [address] | [place] [address] | | | PATHOLOGY | [address] | | | + + + + + MAGNESIUM, PLASMA (11/08/2004 2:01 PM PDT) + + + + + + | Component | Value | Ref Range | Performed | Pathologist | | | | | At | Signature | + + + + + + | MAGNESIUM,P | See cmnt | 1.8 - 2.5 mg/dL | [facility] | | | LASMA | | | DEPARTMENT | | | | | | OF | | | | | | PATHOLOGY | | + + + + + + + + | Specimen | + + | | + + + + + | Narrative | Performed At | + + + | Unable to draw specimen. Phlebotomy attempted 2x | [facility] | | | DEPARTMENT OF | | | PATHOLOGY | + + + + + + + + | Performing | Address | City/State/Zipcode | Phone Number | | Organization | | | | + + + + + | [facility] DEPARTMENT OF | [address] | [place] [address] | | | PATHOLOGY | [address] | | | + + + + + | [facility] DE[facility] | [address] | [place] [address] | | | PATHOLOGY | [address] | | | + + + + + CBC ONLY WITH PLATELET (11/08/2004 5:47 AM PDT) + + + + + + | Component | Value | Ref Range | Performed | Pathologist | | | | | At | Signature | + + + + + + | WHITE CELL | 21.6 (H) | 4.4 - 11.0 K/cu | [facility] | | | COUNT | | mm | DEPARTMENT | | | | | | OF | | | | | | PATHOLOGY | | + + + + + + | RED CELL | 4.76 | 4.50 - 5.90 | [facility] | | | COUNT | | M/cu mm | DEPARTMENT | | | | | | OF | | | | | | PATHOLOGY | | + + + + + + | HEMOGLOBIN | 14.2 | 13.5 - 17.5 | [facility] | | | | | g/dL | DEPARTMENT | | | | | | OF | | | | | | PATHOLOGY | | + + + + + + | HEMATOCRIT | 41.0 | 41.0 - 53.0 % | [facility] | | | | | | DEPARTMENT | | | | | | OF | | | | | | PATHOLOGY | | + + + + + + | MCV | 86.1 | 80.0 - 96.0 fL | [facility] | | | | | | DEPARTMENT | | | | | | OF | | | | | | PATHOLOGY | | + + + + + + | MCHC | 34.7 | 33.4 - 35.5 | [facility] | | | | | g/dL | DEPARTMENT | | | | | | OF | | | | | | PATHOLOGY | | + + + + + + | RDW | 14.7 | 11.5 - 15.0 % | [facility] | | | | | | DEPARTMENT | | | | | | OF | | | | | | PATHOLOGY | | + + + + + + | PLATELET | 193 | 150 - 400 K/cu | [facility] | | | COUNT | | mm | DEPARTMENT | | | | | | OF | | | | | | PATHOLOGY | | + + + + + + | CBC | Final WBC Report. | | [facility] | | | COMMENTS | | | DEPARTMENT | | | | | | OF | | | | | | PATHOLOGY | | + + + + + + + + | Specimen | + + | | + + + + + | Narrative | Performed At | + + + | New reference ranges for RBC, HGB, and HCT in effect 10/20/04. * | [facility] | | Corrected 11/08/04 08:47: JAG COMMENTS, prev report: Not reported | DEPARTMENT OF | | | PATHOLOGY | + + + + + + + + | Performing | Address | City/State/Zipcode | Phone Number | | Organization | | | | + + + + + | [facility] DEPARTMENT OF | [address] | [place] [address] | | | PATHOLOGY | [address] | | | + + + + + | [facility] DEPARTMENT OF | [address] | [place] [address] | | | PATHOLOGY | [address] | | | + + + + + SLIDE REVIEW (11/08/2004 5:47 AM PDT) + + | Specimen | + + | | + + + + + | Narrative | Performed At | + + + | New reference ranges for RBC, HGB, and HCT in effect 10/20/04. * | [facility] | | Corrected 11/08/04 08:47: JAG COMMENTS, prev report: Not reported | DEPARTMENT OF | | | PATHOLOGY | + + + + + + + + | Performing | Address | City/State/Zipcode | Phone Number | | Organization | | | | + + + + + | [facility] DEPARTMENT OF | [address] | [place] [address] | | | PATHOLOGY | [address] | | | + + + + + | [facility] DEPARTMENT OF | [address] | [place] [address] | | | PATHOLOGY | [address] | | | + + + + + BASIC METABOLIC SET (11/08/2004 5:47 AM PDT) + +---------+ + + + | Component | Value | Ref Range | Performed | Pathologist | | | | | At | Signature | + +---------+ + + + | GLUCOSE, | 150 (H) | 65 - 110 mg/dL | [facility] | | | PLASMA | | | DEPARTMENT | | | (LAB) | | | OF | | | | | | PATHOLOGY | | + +---------+ + + + | BUN, PLASMA | 23 (H) | 6 - 20 mg/dL | [facility] | | | (LAB) | | | DEPARTMENT | | | | | | OF | | | | | | PATHOLOGY | | + +---------+ + + + | CREATININE | 2.1 (H) | 0.7 - 1.3 mg/dL | [facility] | | | PLASMA | | | DEPARTMENT | | | (LAB) | | | OF | | | | | | PATHOLOGY | | + +---------+ + + + | SODIUM, | 137 | 136 - 145 | [facility] | | | PLASMA | | mmol/L | DEPARTMENT | | | (LAB) | | | OF | | | | | | PATHOLOGY | | + +---------+ + + + | POTASSIUM, | 5.1 | 3.5 - 5.1 | [facility] | | | PLASMA | | mmol/L | DEPARTMENT | | | (LAB) | | | OF | | | | | | PATHOLOGY | | + +---------+ + + + | CHLORIDE, | 107 | 98 - 107 mmol/L | [facility] | | | PLASMA | | | DEPARTMENT | | | (LAB) | | | OF | | | | | | PATHOLOGY | | + +---------+ + + + | TOTAL CO2, | 25 | 23 - 29 mmol/L | [facility] | | | PLASMA | | | DEPARTMENT | | | (LAB) | | | OF | | | | | | PATHOLOGY | | + +---------+ + + + | CALCIUM, | 8.3 (L) | 8.5 - 10.5 | [facility] | | | PLASMA | | mg/dL | DEPARTMENT | | | (LAB) | | | OF | | | | | | PATHOLOGY | | + +---------+ + + + + + | Specimen | + + | | + + + + + + + | Performing | Address | City/State/Zipcode | Phone Number | | Organization | | | | + + + + + | [facility] DEPARTMENT OF | [address] | [place] [address] | | | PATHOLOGY | [address] | | | + + + + + | [facility] DEPARTMENT OF | [address] | [place] [address] | | | PATHOLOGY | [address] | | | + + + + + CK (11/08/2004 5:47 AM PDT) + + + + + + | Component | Value | Ref Range | Performed | Pathologist | | | | | At | Signature | + + + + + + | CK | 5697 (H) | 49 - 397 U/L | [facility] | | | | | [...] DEPARTMENT OF | [address] | [place] [address] | | | PATHOLOGY | [address] | | | + + + + + | [facility] DEPARTMENT OF | [address] | [place] [address] | | | PATHOLOGY | [address] | | | + + + + + CK (11/07/2004 2:25 PM PDT) + + + + + + | Component | Value | Ref Range | Performed | Pathologist | | | | | At | Signature | + + + + + + | CK | 6294 (H) | 49 - 397 U/L | [facility] | | | | | [...] | + + + + + | [facility] DEPARTMENT OF | [address] | [place] [address] | | | PATHOLOGY | [address] | | | + + + + + | [facility] DEPARTMENT OF | [address] | [place] [address] | | | PATHOLOGY | [address] | | | + + + + + CBC ONLY WITH PLATELET (11/07/2004 8:25 AM PDT) + + + + + + | Component | Value | Ref Range | Performed | Pathologist | | | | | At | Signature | + + + + + + | WHITE CELL | 14.8 (H) | 4.4 - 11.0 K/cu | [facility] | | | COUNT | | mm | DEPARTMENT | | | | | | OF | | | | | | PATHOLOGY | | + + + + + + | RED CELL | 4.57 | 4.50 - 5.90 | [facility] | | | COUNT | | M/cu mm | DEPARTMENT | | | | | | OF | | | | | | PATHOLOGY | | + + + + + + | HEMOGLOBIN | 13.5 | 13.5 - 17.5 | [facility] | | | | | g/dL | DEPARTMENT | | | | | | OF | | | | | | PATHOLOGY | | + + + + + + | HEMATOCRIT | 39.0 (L) | 41.0 - 53.0 % | [facility] | | | | | | DEPARTMENT | | | | | | OF | | | | | | PATHOLOGY | | + + + + + + | MCV | 85.2 | 80.0 - 96.0 fL | [facility] | | | | | | DEPARTMENT | | | | | | OF | | | | | | PATHOLOGY | | + + + + + + | MCHC | 34.6 | 33.4 - 35.5 | [facility] | | | | | g/dL | DEPARTMENT | | | | | | OF | | | | | | PATHOLOGY | | + + + + + + | RDW | 14.3 | 11.5 - 15.0 % | [facility] | | | | | | DEPARTMENT | | | | | | OF | | | | | | PATHOLOGY | | + + + + + + | PLATELET | 169 | 150 - 400 K/cu | [facility] | | | COUNT | | mm | DEPARTMENT | | | | | | OF | | | | | | PATHOLOGY | | + + + + + + + + | Specimen | + + | | + + + + + | Narrative | Performed At | + + + | New reference ranges for RBC, HGB, and HCT in effect 10/20/04. | [facility] | | | DEPARTMENT OF | | | PATHOLOGY | + + + + + + + + | Performing | Address | City/State/Zipcode | Phone Number | | Organization | | | | + + + + + | [facility] DEPARTMENT | [address] | [place] [address] | | | PATHOLOGY | [address] | | | + + + + + | [facility] | [address] | [place] [address] | | | PATHOLOGY | [address] | | | + + + + + CK (11/07/2004 8:25 AM PDT) + + + + + + | Component | Value | Ref Range | Performed | Pathologist | | | | | At | Signature | + + + + + + | CK | 7359 (H) | 49 - 397 U/L | [facility] | | | | | [...] | + + + + + | [facility] DEPARTMENT OF | [address] | [place] [address] | | | PATHOLOGY | [address] | | | + + + + + | [facility] DE[facility]MENT OF | [address] | [place] [address] | | | PATHOLOGY | [address] | | | + + + + + CHEST 1 VIEW (11/07/2004 7:00 AM PDT) + + + + + + | Component | Value | Ref Range | Performed | Pathologist | | | | | At | Signature | + + + + + + | CHEST, 1 | Radiologist 1: | | | | | VIEW | SHAUN SOUZA, | | | | | | M.AlidaSTUDY: A.P. chest. | | | | | | COMPARISON: 11/07/04 and | | | | | | CT chest 11/07/04. | | | | | | DISCUSSION: The right | | | | | | chest tube is in | | | | | | unchanged position. No | | | | | | pneumothorax | | | | | | isidentified. | | | | | | Subcutaneous emphysema | | | | | | is unchanged long the | | | | | | rightlateral chest wall | | | | | | and base of right neck. | | | | | | A lateral right 7thrib | | | | | | fracture is seen. There | | | | | | are low lung volumes | | | | | | with bibasilar areas of | | | | | | opacity. Thefocal area | | | | | | of opacity within the | | | | | | left lower lobe has | | | | | | partiallyresolved. The | | | | | | cardiomediastinal | | | | | | silhouette is stable. | | | | | | IMPRESSION: 1. | | | | | | Subcutaneous emphysema | | | | | | along right lateral | | | | | | chest wall andright | | | | | | neck. 2. Bibasilar | | | | | | atelectasis vs. | | | | | | contusion. Left lower | | | | | | lobeatelectasis has | | | | | | partially resolved | | | | | | compared to radiograph | | | | | | earlieron the same day. | | | | | | 3. Right 7th rib | | | | | | fracture. 4. Enlarged | | | | | | cardiac and mediastinal | | | | | | silhouette is stable | | | | | | andsecondary to | | | | | | mediastinal lipomatosis | | | | | | and prominent cardiac | | | | | | fatpads. | | | | + + + + + + + + | Specimen | + + | | + + + +---------+ + + | Performing | Address | City/State/[facility] | Phone Number | | Organization | | | | + +---------+ + + | [facility] DEPARTMENT OF | | | | | RADIOLOGY | | | | + +---------+ + + BASIC METABOLIC SET (11/07/2004 3:40 AM PDT) + +---------+ + + + | Component | Value | Ref Range | Performed | Pathologist | | | | | At | Signature | + +---------+ + + + | GLUCOSE, | 168 (H) | 65 - 110 mg/dL | [facility] | | | PLASMA | | | DEPARTMENT | | | (LAB) | | | OF | | | | | | PATHOLOGY | | + +---------+ + + + | BUN, PLASMA | 13 | 6 - 20 mg/dL | [facility] | | | (LAB) | | | DEPARTMENT | | | | | | OF | | | | | | PATHOLOGY | | + +---------+ + + + | CREATININE | 1.3 | 0.7 - 1.3 mg/dL | [facility] | | | PLASMA | | | DEPARTMENT | | | (LAB) | | | OF | | | | | | PATHOLOGY | | + +---------+ + + + | SODIUM, | 136 | 136 - 145 | [facility] | | | PLASMA | | mmol/L | DEPARTMENT | | | (LAB) | | | OF | | | | | | PATHOLOGY | | + +---------+ + + + | POTASSIUM, | 5.0 | 3.5 - 5.1 | [facility] | | | PLASMA | | mmol/L | DEPARTMENT | | | (LAB) | | | OF | | | | | | PATHOLOGY | | + +---------+ + + + | CHLORIDE, | 103 | 98 - 107 mmol/L | [facility] | | | PLASMA | | | DEPARTMENT | | | (LAB) | | | OF | | | | | | PATHOLOGY | | + +---------+ + + + | TOTAL CO2, | 25 | 23 - 29 mmol/L | [facility] | | | PLASMA | | | DEPARTMENT | | | (LAB) | | | OF | | | | | | PATHOLOGY | | + +---------+ + + + | CALCIUM, | 7.8 (L) | 8.5 - 10.5 | [facility] | | | PLASMA | | mg/dL | DEPARTMENT | | | (LAB) | | | OF | | | | | | PATHOLOGY | | + +---------+ + + + + + | Specimen | + + | | + + + + + + + | Performing | Address | City/State/Zipcode | Phone Number | | Organization | | | | + + + + + | [facility] DEPARTMENT OF | [address] | [place] [address] | | | PATHOLOGY | [address] | | | + + + + + | [facility] DEPARTMENT | [address] | [place] [address] | | | PATHOLOGY | [address] | | | + + + + + MAGNESIUM, PLASMA (11/07/2004 3:40 AM PDT) + +-------+ + + + | Component | Value | Ref Range | Performed | Pathologist | | | | | At | Signature | + +-------+ + + + | MAGNESIUM,P | 1.9 | 1.8 - 2.5 mg/dL | [facility] | | | LASMA | | | DEPARTMENT | | | | | | OF | | | | | | PATHOLOGY | | + +-------+ + + + + + | Specimen | + + | | + + + + + + + | Performing | Address | City/State/Zipcode | Phone Number | | Organization | | | | + + + + + | [facility] | [address] | [place] [address] | | | PATHOLOGY | [address] | | | + + + + + | [facility] | [address] [place] [address] | [place] [address] | | | PATHOLOGY | [address] | | | + + + + + PHOSPHORUS, PLASMA (11/07/2004 3:40 AM PDT) + +-------+ + + + | Component | Value | Ref Range | Performed | Pathologist | | | | | At | Signature | + +-------+ + + + | PHOSPHORUS, | 4.1 | 2.4 - 4.7 mg/dL | [facility] | | | PLASMA [...] | + + + + + | [facility] DE[facility]MENT [facility] | [address] | [place] [address] | | | PATHOLOGY | [address] | | | + + + + + | [facility] DEPARTMENT | [address] | [place] [address] | | | PATHOLOGY | [address] | | | + + + + + HEMATOCRIT (11/07/2004 2:35 AM PDT) + +-------+ + + + | Component | Value | Ref Range | Performed | Pathologist | | | | | At | Signature | + +-------+ + + + | HEMATOCRIT | 45.4 | 41.0 - 53.0 % | [facility] | | | | | | DEPARTMENT | | | | | | OF | | | | | | PATHOLOGY | | + +-------+ + + + + + | Specimen | + + | | + + + + + | Narrative | Performed At | + + + | New reference ranges for RBC, HGB, and HCT in effect 10/20/04. | [facility] | | | DEPARTMENT OF | | | PATHOLOGY | + + + + + + + + | Performing | Address | City/State/Zipcode | Phone Number | | Organization | | | | + + + + + | [facility] DEPARTMENT OF | [address] | [place] [address] | | | PATHOLOGY | [address] | | | + + + + + | [facility] DEPARTMENT OF | [address] | [place] [address] | | | PATHOLOGY | [address] | | | + + + + + BASIC METABOLIC SET (11/07/2004 2:35 AM PDT) + + + + + + | Component | Value | Ref Range | Performed | Pathologist | | | | | At | Signature | + + + + + + | GLUCOSE, | 175 (H) | 65 - 110 mg/dL | [facility] | | | PLASMA | | | DEPARTMENT | | | (LAB) | | | OF | | | | | | PATHOLOGY | | + + + + + + | BUN, PLASMA | 15 | 6 - 20 mg/dL | [facility] | | | (LAB) | | | DEPARTMENT | | | | | | OF | | | | | | PATHOLOGY | | + + + + + + | CREATININE | 1.3 | 0.7 - 1.3 mg/dL | [facility] | | | PLASMA | | | DEPARTMENT | | | (LAB) | | | OF | | | | | | PATHOLOGY | | + + + + + + | SODIUM, | 133 (L) | 136 - 145 | [facility] | | | PLASMA | | mmol/L | DEPARTMENT | | | (LAB) | | | OF | | | | | | PATHOLOGY | | + + + + + + | POTASSIUM, | 6.4 (*) | 3.5 - 5.1 | [facility] | | | PLASMA | | mmol/L | DEPARTMENT | | | (LAB) | | | OF | | | | | | PATHOLOGY | | + + + + + + | CHLORIDE, | 96 (L) | 98 - 107 mmol/L | [facility] | | | PLASMA | | | DEPARTMENT | | | (LAB) | | | OF | | | | | | PATHOLOGY | | + + + + + + | TOTAL CO2, | 26 | 23 - 29 mmol/L | [facility] | | | PLASMA | | | DEPARTMENT | | | (LAB) | | | OF | | | | | | PATHOLOGY | | + + + + + + | CALCIUM, | 8.2 (L) | 8.5 - 10.5 | [facility] | | | PLASMA | | mg/dL | DEPARTMENT | | | (LAB) | | | OF | | | | | | PATHOLOGY | | + + + + + + | POTASSIUM | MOD HEMO | | [facility] | | | CMNT | | | DEPARTMENT | | | | | | OF | | | | | | PATHOLOGY | | + + + + + + + + | Specimen | + + | | + + + + + | Narrative | Performed At | + + + | K Phoned Readback. Sample hemolyzed. Results for K, Total Bili., | [facility] | | Direct Bili., AST, LD,or HDL may be inaccurate. Refer to comment | DEPARTMENT OF | | under test result. Free Text changed 11/08/04 00:45: previously | PATHOLOGY | | reported as: CA Phoned Readback. Sample hemolyzed. Results for K, | | | Total Bili., Direct Bili., AST, LD,or HDL may be inaccurate. Refer to | | | comment under test result. | | + + + + + + + + | Performing | Address | City/State/Zipcode | Phone Number | | Organization | | | | + + + + + | [facility] DEPARTMENT | [address] | [place] [address] | | | PATHOLOGY | [address] | | | + + + + + | [facility] | [address] | [place] [address] | | | PATHOLOGY | [address] | | | + + + + + CK (11/07/2004 2:35 AM PDT) + + + + + + | Component | Value | Ref Range | Performed | Pathologist | | | | | At | Signature | + + + + + + | CK | 7948 (H) | 49 - 397 U/L | [facility] | | | | | | DEPARTMENT | | | | | | OF | | | | | | PATHOLOGY | | + + + + + + + + | Specimen | + + | | + + + + + | Narrative | Performed At | + + + | K Phoned Readback. Sample hemolyzed. Results for K, Total Bili., | [facility] | | Direct Bili., AST, LD,or HDL may be inaccurate. Refer to comment | DEPARTMENT OF | | under test result. Free Text changed 11/08/04 00:45: previously | PATHOLOGY | | reported as: CA Phoned Readback. Sample hemolyzed. Results for K, | | | Total Bili., Direct Bili., AST, LD,or HDL may be inaccurate. Refer to | | | comment under test result. | | + + + + + + + + | Performing | Address | City/State/Zipcode | Phone Number | | Organization | | | | + + + + + | [facility] DEPARTMENT OF | [address] | [place] [address] | | | PATHOLOGY | [address] | | | + + + + + | [facility] DEPARTMENT OF | [address] | [place] [address] | | | PATHOLOGY | [address] | | | + + + + + CT CHEST W CONTRAST (11/07/2004 1:20 AM PDT) + + + + + + | Component | Value | Ref Range | Performed | Pathologist | | | | | At | Signature | + + + + + + | CT CHEST W | Radiologist 1: ROSAS | | | | | CONTRAST | JOLENE AnthonyRadiologist 2: | | | | | | Eddie CASTANO: | | | | | | Contrast CT of the | | | | | | chest. History: Trauma | | | | | | Comparison: No prior | | | | | | Technique: 2 mm axial | | | | | | CT images of the chest | | | | | | is a were obtainedafter | | | | | | administration of 120 | | | | | | minutes cc Omnipaque 300 | | | | | | intravenouscontrast and | | | | | | oral contrast. | | | | | | Findings: There is | | | | | | extensive subcutaneous | | | | | | emphysema in the right | | | | | | axilla,right paraspinal | | | | | | muscles and right chest | | | | | | wall. A right chest | | | | | | tubeis in place. There | | | | | | is persistent right | | | | | | pneumothorax. A | | | | | | smallamount of fluid is | | | | | | seen in the pleural | | | | | | space bilaterally. | | | | | | Areasof consolidative | | | | | | opacity are seen in the | | | | | | posterior | | | | | | lungsbilaterally with | | | | | | crowding of the air | | | | | | bronchograms, right | | | | | | greaterthan left. | | | | | | There are displaced | | | | | | segmental rib fractures | | | | | | of theright fifth | | | | | | through seventh ribs. | | | | | | The aorta is normal | | | | | | without evidence of | | | | | | acute injury. There is | | | | | | nomediastinal hematoma. | | | | | | There is moderate | | | | | | amount of air within | | | | | | themediastinum with few | | | | | | locules seen adjacent to | | | | | | the esophagus and | | | | | | alarger amount in the | | | | | | anterior mediastinum. | | | | | | Subtle linearlucencies | | | | | | are noted in the right | | | | | | lung along the course of | | | | | | thebronchi. There is no | | | | | | hilar or mediastinal | | | | | | adenopathy. The | | | | | | pericardium isnormal. | | | | | | Visualized abdominal | | | | | | structures are intact | | | | | | withoutevidence of acute | | | | | | injury. IMPRESSION: 1. | | | | | | No evidence of aortic | | | | | | injury. 2. Displaced | | | | | | segmental right fifth | | | | | | through seventh rib | | | | | | fractureswith small | | | | | | persistent | | | | | | hemopneumothorax. 3. | | | | | | Pneumomediastinum, | | | | | | there are subtle linear | | | | | | lucencies in theright | | | | | | lung suggesting air | | | | | | dissecting along the | | | | | | bronchi. This ismost | | | | | | likely caused by | | | | | | traumatic alveolar | | | | | | injury. 4. Extensive | | | | | | right-sided subcutaneous | | | | | | emphysema. These | | | | | | findings are concordant | | | | | | with those reported to | | | | | | the traumateam by | | | | | | | [...] | | | + +---------+ + + CHEST 1 VIEW (11/06/2004 11:45 PM PDT) + + + + + + | Component | Value | Ref Range | Performed | Pathologist | | | | | At | Signature | + + + + + + | CHEST, 1 | Radiologist 1: | | | | | VIEW | [facility] | | | | | | MRutSTUDY: A.PWindy chest. | | | | | | COMPARISON: NONE | | | | | | DISCUSSION: A right | | | | | | chest tube is present | | | | | | with its tip projected | | | | | | into themedial right | | | | | | midlung. No | | | | | | pneumothorax is | | | | | | identified. | | | | | | Extensivesubcutaneous | | | | | | emphysema is noted along | | | | | | the right lateral chest | | | | | | wallat the base of the | | | | | | right neck. | | | | | | Opacification is present | | | | | | at the left lung base | | | | | | and linearopacities are | | | | | | present within the right | | | | | | midlung zone and | | | | | | rightupper lung zone. | | | | | | The cardiac silhouette | | | | | | is at the upper limit | | | | | | ofnormal and there is | | | | | | widening of the | | | | | | mediastinum. No | | | | | | definiteincreased | | | | | | density is present of | | | | | | the mediastinum. No | | | | | | displaced rib fractures | | | | | | are noted. IMPRESSION: | | | | | | 1. Right chest tube. | | | | | | No pneumothorax. 2. | | | | | | Subcutaneous emphysema | | | | | | along the right lateral | | | | | | chest wall andbase of | | | | | | right neck. 3. Left | | | | | | lower lobe and right mid | | | | | | and upper lung zone | | | | | | atelectasisversus | | | | | | contusion. 4. | | | | | | Borderline enlarged | | | | | | cardiac silhouette and | | | | | | prominentmediastinum may | | | | | | represent prominent | | | | | | cardiac fat pads | | | | | | andmediastinal | | | | | | lipomatosis, however | | | | | | mediastinal hematoma | | | | | | should beexcluded with a | | | | | | chest CT. | | | | + + + + + + + + | Specimen | + + | | + + + +---------+ + + | Performing | Address | City/State/Zipcode | Phone Number | | Organization | | | | + +---------+ + + | [facility] DEPARTMENT OF | | | | | RADIOLOGY | | | | + +---------+ + + TIBIA & FIBULA 2 VIEWS LT (11/06/2004 11:45 PM PDT) + + + + + + | Component | Value | Ref Range | Performed | Pathologist | | | | | At | Signature | + + + + + + | TIBIA AND | Radiologist 1: CHRISTINA, | | | | | FIBULA 2 | Tramaine WHEELER | | | | | VIEWS LT | Ramon-Radiologist 2: | | | | | | NIKHIL VEGAROSTMICHELEY: | | | | | | Left tibia and fibula AP | | | | | | and cross table lateral | | | | | | views COMPARISON: None | | | | | | CLINICAL DATA: Trauma | | | | | | FINDINGS: The bones are | | | | | | intact without evidence | | | | | | of fracture or | | | | | | focaldestruction. The | | | | | | knee and ankle joint | | | | | | spaces are | | | | | | maintained.There is | | | | | | chronic, mature, | | | | | | uninterrupted | | | | | | ossification of the | | | | | | distalinterosseous | | | | | | membrane. Mild soft | | | | | | tissue swelling of the | | | | | | ankle ispresent. | | | | | | IMPRESSION: 1. Mild | | | | | | soft tissue swelling | | | | | | around the ankle without | | | | | | anunderlying osseous | | | | | | abnormality. | | | | + + + + + + + + | Specimen | + + | | + + + +---------+ + + | Performing | Address | City/State/Zipcode | Phone Number | | Organization | | | | + +---------+ + + | [facility] DEPARTMENT OF | | | | | RADIOLOGY | | | | + +---------+ + + SHOULDER 2 VIEWS RIGHT (11/06/2004 11:01 PM PDT) + + + + + + | Component | Value | Ref Range | Performed | Pathologist | | | | | At | Signature | + + + + + + | SHOULDER 2 | Radiologist 1: CHRISTINA, | | | | | VIEWS RIGHT | Tramaine WHEELER, | | | | | | M.D.-Radiologist 2: | | | | | | Tramaine VASQUEZ, | | | | | | M.D.STUDY: Right | | | | | | shoulder A.P. and | | | | | | scapular y view. | | | | | | COMPARISON: None | | | | | | CLINICAL DATA: Trauma | | | | | | FINDINGS: The bones are | | | | | | intact without evidence | | | | | | of fracture or | | | | | | focaldestruction. The | | | | | | glenohumeral and | | | | | | acromioclavicular joint | | | | | | spacesare maintained. | | | | | | There are mild | | | | | | degenerative changes of | | | | | | theacromioclavicular | | | | | | joint. Multiple right | | | | | | lateral rib fractures | | | | | | arepresent, but better | | | | | | evaluated on the chest | | | | | | radiograph. There is a | | | | | | large amount of soft | | | | | | tissue emphysema. | | | | | | IMPRESSION: 1. No | | | | | | fracture/dislocation. 2. | | | | | | Multiple right | | | | | | lateral rib fractures | | | | | | are better evaluated | | | | | | onthe chest radiograph. | | | | | | 3. Large amount of | | | | | | soft tissue emphysema. | | | | + + + + + + + + | Specimen | + + | | + + + +---------+ + + | Performing | Address | City/State/Zipcode | Phone Number | | Organization | | | | + +---------+ + + | [facility] DEPARTMENT OF | | | | | RADIOLOGY | | | | + +---------+ + + BLOOD BANK PRODUCT (11/06/2004 10:41 PM PDT) + + + + + + | Component | Value | Ref Range | Performed | Pathologist | | | | | At | Signature | + + + + + + | PRODUCT | RED CELL LEUKOREDUCED | | [facility] | | | DESCRIPTION | | | DEPARTMENT | | | | | | OF | | | | | | PATHOLOGY | | + + + + + + | PRODUCT | [id number] | | [facility] | | | UNIT # | | | DEPARTMENT | | | | | | OF | | | | | | PATHOLOGY | | + + + + + + | UNIT ABO | O | | [facility] | | | | | | DEPARTMENT | | | | | | OF | | | | | | PATHOLOGY | | + + + + + + | UNIT RH | POS | | [facility] | | | | | | DEPARTMENT | | | | | | OF | | | | | | PATHOLOGY | | + + + + + + | STATUS OF | Released | | [facility] | | | UNIT | | | DEPARTMENT | | | [...] | + + + + + | [facility] | [address] | [place] [address] | | | PATHOLOGY | [address] | | | + + + + + | [facility] | [address] | [place] [address] | | | PATHOLOGY | [address] | | | + + + + + BLOOD BANK PRODUCT (11/06/2004 10:41 PM PDT) + + + + + + | Component | Value | Ref Range | Performed | Pathologist | | | | | At | Signature | + + + + + + | PRODUCT | RED CELL LEUKOREDUCED | | [facility] | | | DESCRIPTION | | | DEPARTMENT | | | | | | OF | | | | | | PATHOLOGY | | + + + + + + | PRODUCT | [id number] | | [facility] | | | UNIT # | | | DEPARTMENT | | | | | | OF | | | | | | PATHOLOGY | | + + + + + + | UNIT ABO | O | | [facility] | | | | | | DEPARTMENT | | | | | | OF | | | | | | PATHOLOGY | | + + + + + + | UNIT RH | POS | | [facility] | | | | | | DEPARTMENT | | | | | | OF | | | | | | PATHOLOGY | | + + + + + + | STATUS OF | Released | | [facility] | | | UNIT | | | DEPARTMENT | | | [...] DEPARTMENT OF | [address] | [place] [address] | | | PATHOLOGY | [address] | | | + + + + + | [facility] DEPARTMENT OF | [address] | [place] [address] | | | PATHOLOGY | [address] | | | + + + + + ANTIBODY SCREEN & CROSSMATCH (11/06/2004 10:41 PM PDT) + +-------+ + + + | Component | Value | Ref Range | Performed | Pathologist | | | | | At | Signature | + +-------+ + + + | ABO GROUP | O | | [facility] | | | | | | DEPARTMENT | | | | | | OF | | | | | | PATHOLOGY | | + +-------+ + + + | RH TYPE | POS | | [facility] | | | | | | DEPARTMENT | | | | | | OF | | | | | | PATHOLOGY | | + +-------+ + + + | ANTIBODY | NEG | | [facility] | | | SCREEN | | | DEPARTMENT | | | | | | OF | | | | | | PATHOLOGY | | + +-------+ + + + + + | Specimen | + + | | + + + + + | Narrative | Performed At | + + + | SPEC ANALIATE 11/09/04 @ 0700 | [facility] | | | DEPARTMENT OF | | | PATHOLOGY | + + + + + + + + | Performing | Address | City/State/Zipcode | Phone Number | | Organization | | | | + + + + + | [facility] | [address] | [place] [address] | | | PATHOLOGY | [address] | | | + + + + + | [facility] | [address] | [place] [address] | | | PATHOLOGY | [address] | | | + + + + + CBC ONLY WITH PLATELET (11/06/2004 10:31 PM PDT) + + + + + + | Component | Value | Ref Range | Performed | Pathologist | | | | | At | Signature | + + + + + + | WHITE CELL | 21.5 (H) | 4.4 - 11.0 K/cu | [facility] | | | COUNT | | mm | DEPARTMENT | | | | | | OF | | | | | | PATHOLOGY | | + + + + + + | RED CELL | 5.04 | 4.50 - 5.90 | [facility] | | | COUNT | | M/cu mm | DEPARTMENT | | | | | | OF | | | | | | PATHOLOGY | | + + + + + + | HEMOGLOBIN | 14.9 | 13.5 - 17.5 | [facility] | | | | | g/dL | DEPARTMENT | | | | | | OF | | | | | | PATHOLOGY | | + + + + + + | HEMATOCRIT | 42.3 | 41.0 - 53.0 % | [facility] | | | | | | DEPARTMENT | | | | | | OF | | | | | | PATHOLOGY | | + + + + + + | MCV | 83.9 | 80.0 - 96.0 fL | [facility] | | | | | | DEPARTMENT | | | | | | OF | | | | | | PATHOLOGY | | + + + + + + | MCHC | 35.3 | 33.4 - 35.5 | [facility] | | | | | g/dL | DEPARTMENT | | | | | | OF | | | | | | PATHOLOGY | | + + + + + + | RDW | 14.2 | 11.5 - 15.0 % | [facility] | | | | | | DEPARTMENT | | | | | | OF | | | | | | PATHOLOGY | | + + + + + + | PLATELET | 192 | 150 - 400 K/cu | [facility] | | | COUNT | | mm | DEPARTMENT | | | | | | OF | | | | | | PATHOLOGY | | + + + + + + | CBC | Final WBC Report. | | [facility] | | | COMMENTS | | | DEPARTMENT | | | | | | OF | | | | | | PATHOLOGY | | + + + + + + + + | Specimen | + + | | + + + + + | Narrative | Performed At | + + + | New reference ranges for RBC, HGB, and HCT in effect 10/20/04. * | [facility] | | Corrected 11/07/04 00:16: HPANEL COMMENTS, prev report: PRELIMINARY | DEPARTMENT OF | | WBC!See final report. | PATHOLOGY | + + + + + + + + | Performing | Address | City/State/Zipcode | Phone Number | | Organization | | | | + + + + + | [facility] | [address] | [place] [address] | | | PATHOLOGY | [address] | | | + + + + + | [facility] | [address] [place] [address] | [place] [address] | | | PATHOLOGY | [address] | | | + + + + + SLIDE REVIEW (11/06/2004 10:31 PM PDT) + + | Specimen | + + | | + + + + + | Narrative | Performed At | + + + | New reference ranges for RBC, HGB, and HCT in effect 10/20/04. * | [facility] | | Corrected 11/07/04 00:16: EBONYNEL COMMENTS, prev report: PRELIMINARY | DEPARTMENT OF | | WBC!See final report. | PATHOLOGY | + + + + + + + + | Performing | Address | City/State/Zipcode | Phone Number | | Organization | | | | + + + + + | [facility] DEPARTMENT OF | [address] | [place] [address] | | | PATHOLOGY | [address] | | | + + + + + | [facility] DEPARTMENT OF | [address] | [place] [address] | | | PATHOLOGY | [address] | | | + + + + + PROTHROMBIN TIME (11/06/2004 10:31 PM PDT) + + + + + + | Component | Value | Ref Range | Performed | Pathologist | | | | | At | Signature | + + + + + + | INR | 0.97Comment: | 0.90 - 1.20 INR | [facility] | | | | PT INR Therapeutic | | DEPARTMENT | | | | ranges for full | | OF | | | | anticoagulation: | | PATHOLOGY | | | | INR for | | | | | | Venous Thromboembolism | | | | | | | | | | | | (2.0-3.0)INR | | | | | | INR for most | | | | | | patients with mech. | | | | | | valves (2.5-3.5)INR | | | | + + + + + + + + | Specimen | + + | | + + + + + + + | Performing | Address | City/State/Zipcode | Phone Number | | Organization | | | | + + + + + | [facility] DEPARTMENT OF | [address] | [place] [address] | | | PATHOLOGY | [address] | | | + + + + + | [facility] DEPARTMENT | [address] | [place] [address] | | | PATHOLOGY | [address] | | | + + + + + APTT (ACT. PART. THROMBO TIME) (11/06/2004 10:31 PM PDT) + + + + + + | Component | Value | Ref Range | Performed | Pathologist | | | | | At | Signature | + + + + + + | APTT | 20.8 (L)Comment: | 26.0 - 36.0 | [facility] | | | | APTT Therapeutic | seconds | DEPARTMENT | | | | Range | | OF | | | | | | PATHOLOGY | | | | (75-120)sec | | | | | | Heparin levels | | | | | | of 0.35-0.7 U/mL | | | | + + + + + + + + | Specimen | + + | | + + + + + + + | Performing | Address | City/State/Zipcode | Phone Number | | Organization | | | | + + + + + | [facility] DEPARTMENT OF | [address] | [place] [address] | | | PATHOLOGY | [address] | | | + + + + + | [facility] DEPARTMENT OF | [address] | [place] [address] | | | PATHOLOGY | [address] | | | + + + + + TROPONIN I (11/06/2004 10:31 PM PDT) + +-------+ + + + | Component | Value | Ref Range | Performed | Pathologist | | | | | At | Signature | + +-------+ + + + | TROPONIN I | 0.03 | <0.50 ng/mL | [facility] | | | | | [...] | + + + + + | [facility] DEPARTMENT | [address] | [place] [address] | | | PATHOLOGY | [address] | | | + + + + + | [facility] DEPARTMENT OF | [address] | [place] [address] | | | PATHOLOGY | [address] | | | + + + + + BASIC METABOLIC SET (11/06/2004 10:31 PM PDT) + +---------+ + + + | Component | Value | Ref Range | Performed | Pathologist | | | | | At | Signature | + +---------+ + + + | GLUCOSE, | 141 (H) | 65 - 110 mg/dL | [facility] | | | PLASMA | | | DEPARTMENT | | | (LAB) | | | OF | | | | | | PATHOLOGY | | + +---------+ + + + | BUN, PLASMA | 15 | 6 - 20 mg/dL | [facility] | | | (LAB) | | | DEPARTMENT | | | | | | OF | | | | | | PATHOLOGY | | + +---------+ + + + | CREATININE | 1.3 | 0.7 - 1.3 mg/dL | [facility] | | | PLASMA | | | DEPARTMENT | | | (LAB) | | | OF | | | | | | PATHOLOGY | | + +---------+ + + + | SODIUM, | 140 | 136 - 145 | [facility] | | | PLASMA | | mmol/L | DEPARTMENT | | | (LAB) | | | OF | | | | | | PATHOLOGY | | + +---------+ + + + | POTASSIUM, | 4.2 | 3.5 - 5.1 | [facility] | | | PLASMA | | mmol/L | DEPARTMENT | | | (LAB) | | | OF | | | | | | PATHOLOGY | | + +---------+ + + + | CHLORIDE, | 103 | 98 - 107 mmol/L | [facility] | | | PLASMA | | | DEPARTMENT | | | (LAB) | | | OF | | | | | | PATHOLOGY | | + +---------+ + + + | TOTAL CO2, | 23 | 23 - 29 mmol/L | [facility] | | | PLASMA | | | DEPARTMENT | | | (LAB) | | | OF | | | | | | PATHOLOGY | | + +---------+ + + + | CALCIUM, | 8.3 (L) | 8.5 - 10.5 | [facility] | | | PLASMA | | mg/dL | DEPARTMENT | | | (LAB) | | | OF | | | | | | PATHOLOGY | | + +---------+ + + + + + | Specimen | + + | | + + + + + + + | Performing | Address | City/State/Zipcode | Phone Number | | Organization | | | | + + + + + | [facility]MENT [facility] | [address] | [place] [address] | | | PATHOLOGY | [address] | | | + + + + + | [facility] DEPARTMENT OF | [address] | [place] [address] | | | PATHOLOGY | [address] | | | + + + + + CK (11/06/2004 10:31 PM PDT) + + + + + + | Component | Value | Ref Range | Performed | Pathologist | | | | | At | Signature | + + + + + + | CK | 2755 (H) | 49 - 397 U/L | [facility] | | | | | [...] | + + + + + | [facility] | [address] | [place] [address] | | | PATHOLOGY | [address] | | | + + + + + | [facility] | [address] [place] [address] [address] | [place] [address] | | | PATHOLOGY | [address] | | | + + + + + ALCOHOL SCRN, SERUM (11/06/2004 10:31 PM PDT) + +-------+ + + + | Component | Value | Ref Range | Performed | Pathologist | | | | | At | Signature | + +-------+ + + + | ETHANOL | 32 | mg/dL | [facility] | | | (ALCOHOL) | | | DEPARTMENT | | | | | | OF | | | | | | PATHOLOGY | | + +-------+ + + + + + | Specimen | + + | | + + + + + + + | Performing | Address | City/State/Zipcode | Phone Number | | Organization | | | | + + + + + | [facility] | [address] | [place] [address] | | | PATHOLOGY | [address] | | | + + + + + | [facility] DEPARTMENT OF | [address] | [place] [address] | | | PATHOLOGY | [address] | | | + + + + + documented in this encounter Visit Diagnoses Not on filedocumented in this encounter"
--- OUTSIDE RECORDS SUMMARY | ~2019-05-02 | XMS | Encounter Summary ---
Demographics + + + | Address | [address] | | | [place] [address] | + + + | Home Phone [...] + | Shlomo Holliday | ECON | [address] | | | | | [place] | | | | | [address] | | + + + + + Care Team Providers + +------+ + | Care Photographic Equipment Technician Name | Role | Phone | + +------+ + | Manjit Patterson DO | PCP | | + +------+ + Reason for Referral Evaluate & Treat (Routine) + + + + + + + | Status | Reason | Specialty | Diagnoses / | Referred By | Referred To | | | | | Procedures | Contact | Contact | + + + + + + + | Authorized | Specialty | Occupational | Diagnoses | Alexia, | [facility] | | | Services | Therapy | Right wrist | Macho Myles MD | [place] | | | Required | | pain | [address] | | | | | | [address] | THERAPY - | | | | | | [place] | [place] | | | | | | [address] | [address] | | | | | | Phone: | TAVON MILLER | | | | | | [phone] | 15 | | | | | | Fax: | [place] | | | | | | [phone] | [address] | | | | | | | Phone: | | | | | | | [phone] | | | | | | | Fax: | | | | | | | [phone] | + + + + + + + Reason for Visit + + + | Reason | Comments | + + + | Post-op Exam | Right wrist | + + + Service/Procedure (Routine) +--------+--------+ + + + + | Status | Reason | Specialty | Diagnoses / | Referred By | Referred To | | | | | Procedures | Contact | Contact | +--------+--------+ + + + + | Closed | | | Diagnoses | | Alexia, | | | | | Rt wrist | | Macho Myles MD | | | | | | | [address] | | | | | | [address] [facility] | | | | | | | [place] [address] | | | | | | | Phone: | | | | | | | [phone] | | | | | | | Fax: | | | | | | | [phone] | +--------+--------+ + + + + Encounter Details +--------+---------+ + + + | Date | Type | Department | Care Team | Description | +--------+---------+ + + + | 01/14/ | Office | [facility] | Macho Hale, | Right wrist pain | | 2019 | Visit | [facility] | [address] | (Primary Dx); Carpal | | | | [facility] | [place] [address] | tunnel syndrome of | | | | [address] | [phone] | right wrist | | | | [place], [place] | | | | | | [address] | | | | | | [phone] | | | +--------+---------+ + + + [...] + + + documented in this encounter Progress Notes Mikayla Saez, RADHA - 01/14/2019 9:00 AM PDT [facility]: Orthopedic Surgery Patient Name:Marshall Holliday AGE: 63 y.o. :1955 CHIEF COMPLAINT: Post-op Exam (Right wrist ) HPI HISTORY OF PRESENT ILLNESS Patient overall doing well. No complications noted. No signs of infection. REVIEW OF SYSTEMS Review of Systems Past Medical History: Diagnosis Date Allergic rhinitis Anxiety Arthritis Back pain Broken rib Cancer of large intestine (HCC) ? Cardiac abnormality Cardiomegaly Chest pain RESOLVED Cough Depression Diabetes mellitus (HCC) Diabetes type 2, controlled (HCC) FARR (dyspnea on exertion) Enlarged heart Gout HLD (hyperlipidemia) 10/01/2018 Hyperlipidemia Hypertension Insomnia Malignant neoplasm (HCC) in intestines Obesity Rib fractures Snores Type 2 diabetes mellitus (HCC) Past Surgical History: Procedure Laterality Date CARDIAC SURGERY SEE STENT PLACEMENT CARPAL TUNNEL RELEASE Right ? CATARACT REMOVAL Left CATARACT EXTRACTION CATARACT REMOVAL Right 12/2018 CHOLECYSTECTOMY ? COLECTOMY ? HX: large intestinal CA / Roberto, OR COLONOSCOPY x 2 OR 3 CORONARY ANGIOPLASTY WITH STENT PLACEMENT ? HERNIA REPAIR ? Allergies Allergen Reactions Bee Venom Anaphylaxis PT. STATES RECENTLY STUNG BY BEE-NO SUBSEQUENT PROBLEM. Prior to Admission medications Medication Sig Start Date End Date Taking? Authorizing Provider acetaminophen (TYLENOL) 325 mg tablet Take 325 mg by mouth every 6 (six) hours as needed fo r Pain. Historical Provider, allopurinol (ZYLOPRIM) 100 mg tablet Take 100 mg by mouth daily. Historical Provider, aspirin 81 mg EC tablet Take 81 mg by mouth Daily. Historical Provider, fenofibrate (LOFIBRA, TRIGLIDE) 160 mg tablet Take 160 mg by mouth Daily. Historical Pro viderMD fexofenadine (EVIN) 180 mg tablet Take 180 mg by mouth Daily. Historical Provider, fluticasone (FLONASE) 50 mcg/nasal spray 2 sprays by Nasal route as needed. Historical P MD jaelyn glipiZIDE (GLUCOTROL) 5 mg tablet Take 5 mg by mouth every morning (before breakfast). H istorical Provider, HYDROcodone-acetaminophen (NORCO) 5-325 mg per tablet Take 1 tablet by mouth EVERY 4 TO 6 H OURS NEEDED for Pain. 12/30/18 Macho Hale MD insulin glargine (LANTUS) 100 units/mL injection (vial) Inject 57 Units into the skin. Take as directed.PT. STATES BID 57 UNITS. Historical Provider, Liraglutide (VICTOZA SC) Inject under the skin. 1.8 MG DOSE IN AM Historical Provider, metFORMIN (GLUCOPHAGE) 500 mg tablet Take 500 mg by mouth 4 (four) times daily with meals a nd nightly. Historical Provider, ondansetron (ZOFRAN ODT) 4 mg disintegrating tablet Take 1 tablet by mouth every 8 hours as needed for Nausea. 12/30/18 Macho Hale MD PARoxetine (PAXIL) 40 MG tablet Take 40 mg by mouth. Historical Provider, pseudoePHEDrine (SUDAFED) 60 MG tablet Take 60 mg by mouth Twice daily as needed. Histo rical Provider, rosuvastatin (CRESTOR) 20 mg tablet Take 20 mg by mouth nightly. Historical Provider, sitagliptan-metFORMIN (JANUMET) 50-1000 MG per tablet Take 2 tablets by mouth Daily. His torical Provider, tamsulosin (FLOMAX) 0.4 mg CAPS Take 0.4 mg by mouth daily (after breakfast). Historical Provider, Family History Problem Relation Age of Onset Diabetes, NIDDM Mother Social History Socioeconomic History Marital status: Spouse name: Not on file Number of children: Not on file Years of education: Not on file Highest education level: Not on file Social Needs Financial resource strain: Not on file Food insecurity - worry: Not on file Food insecurity - inability: Not on file Transportation needs - medical: Not on file Transportation needs - non-medical: Not on file Occupational History Not on file Tobacco Use Smoking status: Never Smoker Smokeless tobacco: Never Used Substance and Sexual Activity Alcohol use: Yes Comment: 5 DRINKS PER MONTH Drug use: Never Comment: Drug use: No Sexual activity: Not on file Other Topics Concern Not on file Social History Narrative Not on file PHYSICAL EXAM Vital Signs: Pulse 109 | Ht 1.753 m (5' 9") | Wt 134.3 kg (296 lb) | SpO2 96% | BMI 43.71 kg/m Physical Exam Ortho Exam Wound healed Neurovascularly intact, Motor and sensation grossly intact Brisk cap refill 2+ pulses No signs of complication Tendon transfer appears intact PROBLEM LIST Encounter Diagnoses Name Primary? Right wrist pain Yes Carpal tunnel syndrome of right wrist ASSESSMENT & PLAN Short arm thumb spica cast with the thumb in opposition placed today without issue. Hand therapy prescription written. All questions answered. No strenuous activity. Follow -up in about 4 weeks for repeat clinical check @[email or web address]@ Primary Care Physician: DO Macho Garner MD This document has been prepared with [employer] voice recognition system. The possibility of "s ound alike" furniture polisher errors, and additions, or deletions may occur. If there is any que stion with respect to clarity of the message being conveyed, please contact me directly for clarification. documented in this en counter Plan of Treatment + + +--------+ + + | Name | Type | Priori | Associated Diagnoses | Order Schedule | | | | ty | | | + + +--------+ + + | Ambulatory referral | Outpatient | Routin | Right wrist pain | Ordered: 01/14/2019 | | to Occupational | Referral | e | | | | Therapy | | | | | + + +--------+ + + documented as of this encounter Visit Diagnoses + + | Diagnosis | + + | Right wrist pain - Primary Pain in joint, forearm | + + | Carpal tunnel syndrome of right wrist Carpal tunnel syndrome | + + documented in this encounter
--- OUTSIDE RECORDS SUMMARY | ~2019-05-02 | XMS | Encounter Summary ---
Demographics + + + | Address | [address] | | | [place] [address] | + + + | Home Phone [...] Team Providers + +------+ + | Care Hand Loom Weaver Name | Role | Phone | + +------+ + PCP | Unavailable | + +------+ + Encounter Details +--------+ + + + + | Date | Type | Department | Care Team | Description | +--------+ + + + + | 11/08/ | Results | | Tam Falcon | | | 2004 | Only | | MD [facility] | | | | | | & Science | | | | | | [address] | | | | | | [address] | | | | | | [place] [address] | | +--------+ + + + + [...] | | | | VIEW | JOLENE ChpapellEXAM: AP | | | | | | [...]
--- OUTSIDE RECORDS SUMMARY | ~2019-05-02 | XMS | Encounter Summary ---
Demographics + + + | Address | [address] | | | [place] [address] | + + + | Home Phone | | + + + | Preferred Language | Unknown | + + + | Marital Status | | + + + | Adventism Affiliation | NON | + + + [...] Team Providers + +------+ + | Care Patient Observation Assistant Name | Role | Phone | [...] Tunnel | | 2005 | Visit | [facility] | [facility] [address] | Syndrome (Primary | | | | Rd Mailcode:OP14B | [place], [place] | Dx) | | | | [facility] | [id number] | | | | | [place], [place] | | | | | | [address] | | | | | | [phone] | | | +--------+---------+ + + + [...]
--- OUTSIDE RECORDS SUMMARY | ~2019-05-02 | XMS | Encounter Summary ---
Demographics + + + | Address | [address] | | | [place] [address] | + + + | Home Phone | | + + + | Preferred Language | Unknown | + + + | Marital Status | | + + + | Gnosticist Affiliation | 1041 | + + + [...] + | Shlomo Holliday | ECON | [address] | | | | | [place] | | | | | [address] | | + + + + + Care Team Providers + +------+ + | Care Emergency Medcl Emt Name | Role | Phone | + [...] [address] | | | | | [place], | [place], [place] | | | | | [place] [address] | [address] | | | | | [phone] | | | +--------+ + + + [...]
--- OUTSIDE RECORDS SUMMARY | ~2019-05-02 | XMS | Clinical Summary ---
Demographics + + + | Address | [address] | | | [place] [address] | + + + | Home Phone | | + + + | Preferred Language | Unknown | + + + | Marital Status | | + + + | Buddhism Affiliation | 1041 | + + + | Race | Unknown | + + + | Ethnic Group | Unknown | + + + Author + + + | Author | [facility] (Historical as of | | | 12-20-18) | + + + | Organization | [facility] (Historical as of | | | 12-20-18) | + + + | Address | Unknown | + + + | Phone | Unavailable | + + + Support + + + + + | Name | Relationship | Address | Phone | + + + + + | Shlomo Encarnacion | ECON | [address] | | | | | [place] | | | | | [address] | | + + + + + | Detailed,Message | ECON | Unknown | | + + + + + Care Team Providers + +------+ + | Care Asbestos Shingle Inspector Name | Role | Phone | + +------+ + | Dr. Latanya | PP | Unavailable | + +------+ + Allergies + + + + + + | Active Allergy | Reactions | Severity | Noted | Comments | | | | | Date | | + + + + + + | Bee Venom | Anaphylaxis | High | 10/12/19 | | | | | | 17 | | + + + + + + | Other-Animal | Anaphylaxis | High | 05/20/19 | | | | | | 19 | | + + + + + + Current Medications + + +-------+---------+------+------+-------+ | Prescription | Sig. | Disp. | Refills | Star | End | Statu | | | | | | t | Date | s | | | | | | Date | | | + + +-------+---------+------+------+-------+ | aspirin 81 MG EC | Take 81 mg by mouth | | | | | Activ | | tablet | daily. | | | | | e | + + +-------+---------+------+------+-------+ | Liraglutide | Inject into the | | | | | Activ | | (VICTOZA SC) | skin. Take as | | | | | e | | | directed | | | | | | + + +-------+---------+------+------+-------+ | insulin glargine | Inject 57 Units into | | | | | Activ | | (LANTUS) 100 UNIT/ML | the skin. Take as | | | | | e | | injection | directed | | | | | | + + +-------+---------+------+------+-------+ | rosuvastatin | Take 20 mg by mouth | | | | | Activ | | (CRESTOR) 20 MG | nightly. | | | | | e | | tablet | | | | | | | + + +-------+---------+------+------+-------+ | allopurinol | Take 100 mg by mouth | | | | | Activ | | (ZYLOPRIM) 100 MG | daily. | | | | | e | | tablet | | | | | | | + + +-------+---------+------+------+-------+ | PARoxetine (PAXIL) | Take 40 mg by mouth. | | | | | Activ | | 40 MG tablet | | | | | | e | + + +-------+---------+------+------+-------+ | acetaminophen | Take 325 mg by mouth | | | | | Activ | | (TYLENOL) 325 MG | every 6 (six) hours | | | | | e | | tablet | as needed for Pain. | | | | | | + + +-------+---------+------+------+-------+ | metFORMIN | Take 500 mg by mouth | | | | | Activ | | (GLUCOPHAGE) 500 MG | 4 (four) times | | | | | e | | tablet | daily with meals and | | | | | | | | nightly. | | | | | | + + +-------+---------+------+------+-------+ Active Problems + + + | Problem | Noted Date | + + + | Carpal tunnel syndrome of right wrist | 12/19/2018 | + + + + + | Overview: Added automatically from request for surgery [id number] | + + + + + | HTN (hypertension) | 10/01/2018 | + + + | HLD (hyperlipidemia) | 10/01/2018 | + + + | Class 3 severe obesity due to excess calories with serious | 10/01/2018 | | comorbidity in adult (HCC) | | + + + | Controlled type 2 diabetes mellitus with complication, without | 10/01/2018 | | long-term current use of insulin (HCC) | | + + + | Right wrist pain | 06/20/2018 | + + + | Right carpal tunnel syndrome | 05/27/2018 | + + + Resolved Problems + + + + | Problem | Noted | Resolved | | | Date | Date | + + + + | Tachycardia, unspecified | 03/18/20 | | | | 13 | 9 | + + + + Family History + + +------+ + | Medical History | Relation | Name | Comments | + + +------+ + | Diabetes type II | Mother | | | + + [...] + +---------+ + | Alcohol Use | Drinks/We | oz/Week | Comments | | | ek | | | + + +---------+ + | Yes | | | seldom | + + +---------+ + + + + | Sex Assigned at | Date Recorded | | | | + + + | Not on file | | + + + Last Filed Vital Signs + + + + | Vital Sign | Reading | Time Taken | + + + + | Blood Pressure | 144/82 | 12/19/2018 1:03 PM PDT | + + + + | Pulse | 112 | 12/19/2018 1:03 PM PDT | + + + + | Temperature | - | - | + + + + | Respiratory Rate | - | - | + + + + | Oxygen Saturation | 95% | 12/19/2018 1:03 PM PDT | + + + + | Inhaled Oxygen | - | - | | Concentration | | | + + + + | Weight | 135 kg (297 lb 9.6 | 12/19/2018 1:03 PM PDT | | | oz) | | + + + + | Height | 175.3 cm (5' 9") | 12/19/2018 1:03 PM PDT | + + + + | Body Mass Index | 43.95 | 12/19/2018 1:03 PM PDT | + + + + Plan of Treatment + + + + + | Health Maintenance | Due Date | Last Done | Comments | + + + + + | Diabetic Eye Exam | | | | | | 3 | | | + + + + + | Diabetic Foot Exam | | | | | | 3 | | | + + + + + | Hemoglobin A1c | | | | | | 3 | | | + + + + + | Microalbumin | | | | | Screening | 3 | | | + + + + + | Vaccine: | | | | | Dtap/Tdap/Td (1 - | 2 | | | | Tdap) | | | | + + + + + | Colon Cancer | | | | | Screening | 3 | | | | (Colonoscopy) | | | | + + + + + | Vaccine: Zoster (1 | | | | | of 2) | 3 | | | + + + + + | Vaccine: | | | | | Pneumococcal 65+ | 8 | | | | Low/Medium Risk (1 | | | | | of 2 - PCV13) | | | | + + + + + | Vaccine: Influenza | | | | | (#1) | 9 | | | + + + + + Results Not on filefrom Last 3 Months Insurance + +--------+ +------+-------+---------+ | Payer | Benefi | Subscriber | Type | Phone | Address | | | t Plan | ID | | | | | | / | | | | | | | Group | | | | | + +--------+ +------+-------+---------+ | [facility] | YELLOW | [id number] | | | | | PLANS | [place] | | | | | + +--------+ +------+-------+---------+ + +--------+ +--------+ + + | Guarantor Name | Accoun | Relation to | Date | Phone | Billing Address | | | t Type | Patient | of | | | | | | | | | | + +--------+ +--------+ + + | MARSHALL ENCARNACION | Person | Self [birth year] | Home: | [address] | | [place] | al/Dariel | | [phone] | [phone] | [place] | | | daryn | | | [phone] | [phone] | + +--------+ +--------+ + +
--- OUTSIDE RECORDS SUMMARY | ~2019-05-02 | XMS | Encounter Summary ---
Demographics + + + | Address | [address] | | | [place] [address] | + + + | Home Phone | | + + + | Preferred Language | Unknown | + + + | Marital Status | | + + + | Oriental Orthodox Affiliation | 1041 | + + + | Race | Unknown | + + + | Ethnic Group | Unknown | + + + Author + + + | Author | [facility] | | | and [place] | + + + | Organization | [facility] | | | and [place] | + + + | Address | Unknown | + + + | Phone | Unavailable | + + + Support + + + + + | Name | Relationship | Address | Phone | + + + + + | Shlomo Holliday | ECON | [address] | | | | | [place] | | | | | [address] | | + + + + + Care Team Providers + +------+ + | Care Civil Project Engineer Name | Role | Phone | + +------+ + | Manjit Patterson PCP | | + +------+ + Encounter Details +--------+ + + + + | Date | Type | Department | Care Team | Description | +--------+ + + + + | 02/14/ | Hospital | [facility] | Conversion | Pain | | 2018 | Encounter | [address] | Transaction, | | | | | [address] | Provider Unknown | | | | | [place] | [phone] | | | | | [address] | | | | | | [phone] | | | +--------+ + + + [...] + +--------+ + + + | FL C ARM < 1 HOUR | Routin | 02/07/2018 | | Results for this | | | e | 12:15 AM | | procedure are in the | | | | PDT | | results section. | + +--------+ + + + documented in this encounter Results FL C-Arm < 1 Hour (02/07/2018 12:15 AM PDT) + + | Specimen | [...]
--- OUTSIDE RECORDS SUMMARY | ~2019-05-02 | XMS | Encounter Summary ---
Demographics + + + | Address | [address] | | | [place] [address] | + + + | Home Phone [...] Team Providers + +------+ + | Care Network Firewall Engineer Name | Role | Phone | [...]
--- OUTSIDE RECORDS SUMMARY | ~2019-05-02 | XMS | Encounter Summary ---
Demographics + + + | Address | [address] | | | [place] [address] | + + + | Home Phone | | + + + | Preferred Language | Unknown | + + + | Marital Status | | + + + | Restoration Affiliation | 1041 | + + + | Race | Unknown | + + + | Ethnic Group | Unknown | + + + Author + + + | Author | [facility] | | | and [place] | + + + | Organization | [facility] | | | and [place] | + + + | Address | Unknown | + + + | Phone | Unavailable | + + + Support + + + + + | Name | Relationship | Address | Phone | + + + + + | Shlomo Holliday | ECON | [address] | | | | | [place] | | | | | [address] | | + + + + + Care Team Providers + +------+ + | Care Press Setter Name | Role | Phone | + [...] + + | 01/19/ | Telephone | [facility] | [place], | Request For Medical | | 2019 | | [facility] | MD [place] [facility] | Records ([facility] | | | | MEDICINE [facility] | [place] [address] | for billing needs | | | | [place] [facility] | [phone] | DOS 12/30/18 & | | | | [place] | | 01/14/19 chart notes) | | | | [address] | | | | | | [phone] | | | +--------+ + + + [...]
--- OUTSIDE RECORDS SUMMARY | ~2019-05-02 | XMS | Encounter Summary ---
Demographics + + + | Address | [address] | | | [place] [address] | + + + | Home Phone | | + + + | Preferred Language | Unknown | + + + | Marital Status | | + + + | Congregation Affiliation | 1041 | + + + | Race | Unknown | + + + | Ethnic Group | Unknown | + + + Author + + + | Author | [facility] | | | and [place] | + + + | Organization | [facility] | | | and [place] | + + + | Address | Unknown | + + + | Phone | Unavailable | + + + Support + + + + + | Name | Relationship | Address | Phone | + + + + + | Shlomo Holliday | ECON | [address] | | | | | [place] | | | | | [address] | | + + + + + Care Team Providers + +------+ + | Care Senior Dentist Name | Role | Phone | + +------+ + | Manjit Patterson PCP | | + +------+ + Encounter Details +--------+ + + + + | Date | Type | Department | Care Team | Description | +--------+ + + + + | 04/06/ | Hospital | [facility] | Conversion | Pain | | 2018 | Encounter | [address] | Transaction, | | | | | [address] | Provider Unknown | | | | | [place] | [phone] | | | | | [address] | | | | | | [phone] | | | +--------+ + + + [...] + + + | XR WRIST RIGHT 3 + | Routin | 11/19/2017 | | Results for this | | VW | e | 8:30 PM | | procedure are in the | | | | PDT | | results section. | + +--------+ + + + documented in this encounter Results XR Wrist Right 3 + Vw (11/19/2017 8:30 PM PDT) + + | Specimen | [...]
--- OUTSIDE RECORDS SUMMARY | ~2019-05-02 | XMS | Encounter Summary ---
Demographics + + + | Address | [address] | | | [place] [address] | + + + | Home Phone | | + + + | Preferred Language | Unknown | + + + | Marital Status | | + + + | Mandaeism Affiliation | NON | + + + [...] Team Providers + +------+ + | Care Vp Digital Marketing Social Media And Crm Name | Role | Phone | + [...] as of this encounter Progress Notes Interface, Naval Architect In - 11/10/2005 2:05 AM PDT [id number] 11/08/2005 11/08/2005 [id number] [address] SPEARS [id number] [facility] [address] [place] [address] [address] [place] [address] or November 08, 2005 Francisco Estrada M.D. RE: MARSHALL ENCARNACION MR #: [id number] Dear doctors Natalie and Jose: Thank you for referring Marshall Encarnacion to [facility]. We saw him in the clinic today with his . 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 SHAY / JOSIAH [id number] / [id number] / [phone] / cc: * Dr. Garcia [facility] [address] [place] [address] documented i n this encounter Plan of Treatment Not on filedocumented as of this encounter Visit Diagnoses Not on filedocumented in this encounter"
--- OUTSIDE RECORDS SUMMARY | ~2019-05-02 | XMS | Encounter Summary ---
Demographics + + + | Address | [address] | | | [place] [address] | + + + | Home Phone [...] Team Providers + +------+ + | Care Laundry Housekeeping Aide Name | Role | Phone | + [...]
--- OUTSIDE RECORDS SUMMARY | ~2019-05-02 | XMS | Encounter Summary ---
Demographics + + + | Address | [address] | | | [place] [address] | + + + | Home Phone | | + + + | Preferred Language | Unknown | + + + | Marital Status | | + + + | Catholic Affiliation | NON | + + + | Race | or | + + + | Ethnic Group | Not or | + + + Author + + + | Author | [facility] | + + + | Organization | [facility] | + + + | Address | Unknown | + + + | Phone | Unavailable | + + + Support + + +---------+ + | Name | Relationship | Address | Phone | + + +---------+ + | Shlomo Holliday | ECON | Unknown | | + + +---------+ + Care Team Providers + +------+ + | Care Facilities Maintenance Technician Name | Role | Phone | [...] [id number] | | | | | | [place], [place] | | | | | | [address] | | | | | | [phone] | | | +--------+ + + + [...] DEPARTMENT OF | [address] | [place] [address] | | | PATHOLOGY | [address] | | | + + + + + | [facility] DEPARTMENT OF | [address] | [place] [address] | | | PATHOLOGY | [address] [...] | + + + + + | [facility] DEPARTMENT OF | [facility] | [place] [address] | | | PATHOLOGY | [address] | | | + + + + + | [facility] DEPARTMENT OF | [address] | [place] [address] | | | PATHOLOGY | [address] [...] | | + +---------+ + + | [facility] DEPARTMENT OF | | | [...] DEPARTMENT OF | [address] | [place] [address] | | | PATHOLOGY | [address] | | | + + + + + | [facility] DEPARTMENT | [address] | [place] [address] | | | PATHOLOGY | [address] [...] DEPARTMENT OF | [address] | [place] [address] | | | PATHOLOGY | [address] | | | + + + + + | [facility] DEPARTMENT | [address] | [place] [address] | | | PATHOLOGY | [address] [...] | + + + + + | [facility] DEPARTMENT OF | [address] [place] [address] | [place] [address] | | | PATHOLOGY | [address] | | | + + + + + | [facility] DEPARTMENT OF | [address] [facility] | [place] [address] | | | PATHOLOGY | [address] [...] + + | [facility] DEPARTMENT OF | [address] | [place] [address] | | | PATHOLOGY | [address] | | | + + + + + | [facility] DEPARTMENT OF | [address] | [place] [address] | | | PATHOLOGY | [address] | | | + + + + + PHOSPHORUS, PLASMA (11/08/2004 6:12 PM PDT) + +-------+ + + + | Component | Value | Ref Range | Performed | Pathologist | | | | | At | Signature | + +-------+ + + + | PHOSPHORUS, | 4.2 | 2.4 - 4.7 mg/dL | [facility] | | | PLASMA | | | [...] | + + + + + | [facility] | [address] | [place] [address] | | | PATHOLOGY | [address] | | | + + + + + | [facility] | [address] [place] [address] [address] | [place] [address] | | | PATHOLOGY | [address] [...] + + | [facility] DEPARTMENT OF | [address] | [place] [address] | | | PATHOLOGY | [address] | | | + + + + + | [facility] DEPARTMENT OF | [address] | [place] [address] | | | PATHOLOGY | [address] [...] | + + + + + | [facility] DEPARTMENT OF | [address] [place] [address] | [place] [address] | | | PATHOLOGY | [address] | | | + + + + + | [facility] DEPARTMENT OF | [facility] | [place] [address] | | | PATHOLOGY | [address] [...] | + + + + + | [facility] DEPARTMENT OF | [address] [facility] | [place] [address] | | | PATHOLOGY | [address] | | | + + + + + | [facility] DEPARTMENT OF | [address] [place] [address] | [place] [address] | | | PATHOLOGY | [address] [...] | + + + + + | [facility] DEPARTMENT OF | [facility] | [place] [address] | | | PATHOLOGY | [address] | | | + + + + + | [facility] DEPARTMENT OF | [facility] | [place] [address] | | | PATHOLOGY | [address] [...] | + + + + + | [facility] DEPARTMENT OF | [facility] | [place] [address] | | | PATHOLOGY | [address] | | | + + + + + | [facility] DEPARTMENT OF | [facility] | [place] [address] | | | PATHOLOGY | [address] [...] | + + + + + | [facility] DEPARTMENT OF | [address] | [place] [address] | | | PATHOLOGY | [address] | | | + + + + + | [facility] DEPARTMENT OF | [address] | [place] [address] | | | PATHOLOGY | [address] [...] | + + + + + | [facility] DEPARTMENT OF | [address] [facility] | [place] [address] | | | PATHOLOGY | [address] | | | + + + + + | [facility] DEPARTMENT OF | [address] [facility] | [place] [address] | | | PATHOLOGY | [address] [...] | + + + + + | [facility] DEPARTMENT OF | [facility] | [place] [address] | | | PATHOLOGY | [address] | | | + + + + + | [facility] DEPARTMENT OF | [address] | [place] [address] | | | PATHOLOGY | [address] [...] DEPARTMENT OF | [address] | [place] [address] | | | PATHOLOGY | [address] | | | + + + + + | [facility] DEPARTMENT OF | [address] | [place] [address] | | | PATHOLOGY | [address] [...] | + + + + + | [facility] DEPARTMENT OF | [address] [facility] | [place] [address] | | | PATHOLOGY | [address] | | | + + + + + | [facility] DEPARTMENT OF | [facility] | [place] [address] | | | PATHOLOGY | [address] [...] | + + + + + | [facility] DEPARTMENT | [address] | [place] [address] | | | PATHOLOGY | [address] | | | + + + + + | [facility] | [address] | [place] [address] | | | PATHOLOGY | [address] [...] DEPARTMENT OF | [address] | [place] [address] | | | PATHOLOGY | [address] | | | + + + + + | [facility] DEPARTMENT OF | [address] | [place] [address] | | | PATHOLOGY | [address] [...] + + | Performing | Address | City/State/[facility] | Phone Number | | Organization | [...] DEPARTMENT OF | [address] | [place] [address] | | | PATHOLOGY | [address] | | | + + + + + | [facility] DEPARTMENT | [address] | [place] [address] | | | PATHOLOGY | [address] | | | + + + + + MAGNESIUM, PLASMA (11/07/2004 3:40 AM PDT) + +-------+ + + + | Component | Value | Ref Range | Performed | Pathologist | | | | | At | Signature | + +-------+ + + + | MAGNESIUM,P | 1.9 | 1.8 - 2.5 mg/dL | [facility] | | | LASMA | | | [...] | + + + + + | [facility] | [address] [facility] | [place] [address] | | | PATHOLOGY | [address] | | | + + + + + | [facility] | [address] [place] [address] | [place] [address] | | | PATHOLOGY | [address] [...] DEPARTMENT OF | [address] | [place] [address] | | | PATHOLOGY | [address] | | | + + + + + | [facility] DEPARTMENT | [address] | [place] [address] | | | PATHOLOGY | [address] [...] | + + + + + | [facility] DEPARTMENT OF | [address] | [place] [address] | | | PATHOLOGY | [address] | | | + + + + + | [facility] DEPARTMENT OF | [address] | [place] [address] | | | PATHOLOGY | [address] [...] | + + + + + | [facility] DEPARTMENT | [address] [facility] | [place] [address] | | | PATHOLOGY | [address] | | | + + + + + | [facility] | [address] [facility] | [place] [address] | | | PATHOLOGY | [address] [...] | + + + + + | [facility] DEPARTMENT OF | [address] [facility] | [place] [address] | | | PATHOLOGY | [address] | | | + + + + + | [facility] DEPARTMENT OF | [facility] | [place] [address] | | | PATHOLOGY | [address] [...] | | + +---------+ + + | [facility] DEPARTMENT OF | | | [...] + + + + | PRODUCT | [id number] | | [facility] | | | UNIT [...] | + + + + + | [facility] | [facility] | [place] [address] | | | PATHOLOGY | [address] | | | + + + + + | [facility] | [facility] | [place] [address] | | | PATHOLOGY | [address] [...] + + + + | PRODUCT | [id number] | | [facility] | | | UNIT [...] DEPARTMENT OF | [address] | [place] [address] | | | PATHOLOGY | [address] | | | + + + + + | [facility] DEPARTMENT OF | [address] | [place] [address] | | | PATHOLOGY | [address] [...] | + + + + + | [facility] | [address] [facility] | [place] [address] | | | PATHOLOGY | [address] | | | + + + + + | [facility] | [address] [facility] | [place] [address] | | | PATHOLOGY | [address] [...] | + + + + + | [facility] | [address] | [place] [address] | | | PATHOLOGY | [address] | | | + + + + + | [facility] | [address] [place] [address] | [place] [address] | | | PATHOLOGY | [address] [...] | + + + + + | [facility] DEPARTMENT OF | [address] | [place] [address] | | | PATHOLOGY | [address] | | | + + + + + | [facility] DEPARTMENT OF | [address] | [place] [address] | | | PATHOLOGY | [address] [...] | + + + + + | [facility] DEPARTMENT OF | [address] | [place] [address] | | | PATHOLOGY | [address] | | | + + + + + | [facility] DEPARTMENT | [address] | [place] [address] | | | PATHOLOGY | [address] [...] 20.8 (L)Comment: | 26.0 - 36.0 | [facility] | | | | [facility] Therapeutic | [...] | + + + + + | [facility] DEPARTMENT OF | [address] [facility] | [place] [address] | | | PATHOLOGY | [address] | | | + + + + + | [facility] DEPARTMENT OF | [facility] | [place] [address] | | | PATHOLOGY | [address] [...] | + + + + + | [facility] DEPARTMENT | [address] | [place] [address] | | | PATHOLOGY | [address] | | | + + + + + | [facility] DEPARTMENT OF | [address] | [place] [address] | | | PATHOLOGY | [address] [...] + | [facility] DEPARTMENT OF | [address] [facility] | [place] [address] | | | PATHOLOGY | [address] | | | + + + + + | [facility] DEPARTMENT OF | [address] [facility] | [place] [address] | | | PATHOLOGY | [address] [...] | + + + + + | [facility] | [facility] | [place] [address] | | | PATHOLOGY | [address] | | | + + + + + | [facility] | [address] [place] [address] [address] | [place] [address] | | | PATHOLOGY | [address] [...] | + + + + + | [facility] | [address] | [place] [address] | | | PATHOLOGY | [address] | | | + + + + + | [facility] DEPARTMENT OF | [address] | [place] [address] | | | PATHOLOGY | [address] | | | + + + + + documented in this encounter Visit Diagnoses Not on filedocumented in this encounter"
--- OUTSIDE RECORDS SUMMARY | ~2019-05-02 | XMS | Encounter Summary ---
Demographics + + + | Address | [address] | | | [place] [address] | + + + | Home Phone | | + + + | Preferred Language | Unknown | + + + | Marital Status | | + + + | Adventist Affiliation | 1041 | + + + | Race | Unknown | + + + | Ethnic Group | Unknown | + + + Author + + + | Author | [facility] | | | and [place] | + + + | Organization | [facility] | | | and [place] | + + + | Address | Unknown | + + + | Phone | Unavailable | + + + Support + + + + + | Name | Relationship | Address | Phone | + + + + + | Shlomo Holliday | ECON | [address] | | | | | [place] | | | | | [address] | | + + + + + Care Team Providers + +------+ + | Care President Mortgage Company Name | Role | Phone | + +------+ + | Manjit Patterson PCP | | + +------+ + Encounter Details +--------+ + + + + | Date | Type | Department | Care Team | Description | +--------+ + + + + | 12/19/ | Preadmit | [facility] | | | | 2019 | Visit | [facility] | | | | | | [facility] | | | | | | [facility] | | | | | | [address] | | | | | | [place], [place] | | | | | | [address] | | | | | | [phone] | | | +--------+ + + + [...] having extremity surgery please remove all NAIL KAZAKH. Please leave contact lenses at home. Bring a case for eyeglasses & hearing aids. PAS COMPLETED. QUESTIONS ANSWERED. documented in this encounter Plan of Treatment Not on filedocumented as of this encounter Visit Diagnoses Not on filedocumented in this encounter
--- OUTSIDE RECORDS SUMMARY | ~2019-05-02 | XMS | Encounter Summary ---
Demographics + + + | Address | [address] | | | [place] [address] | + + + | Home Phone | | + + + | Preferred Language | Unknown | + + + | Marital Status | | + + + | Baptist Affiliation | NON | + + + | Race | or | + + + | Ethnic Group | Not or | + + + Author + + + | Author | [facility] | + + + | Organization | [facility] | + + + | Address | Unknown | + + + | Phone | Unavailable | + + + Support + + +---------+ + | Name | Relationship | Address | Phone | + + +---------+ + | Shlomo Holliday | ECON | Unknown | | + + +---------+ + Care Team Providers + +------+ + | Care Job Tracer Name | Role | Phone | + +------+ + PCP | Unavailable | + +------+ + Encounter Details +--------+ + + + + | Date | Type | Department | Care Team | Description | +--------+ + + + + | 11/06/ | Results | [facility] | Fish Maria MD | | | 2004 | Only | & Rehabilitation | [address] | | | | | [address] | [address] | | | | | Loop Mailcode: | [place], [place] | | | | | [address] Physician's | [address] | | | | | [place], | [phone] | | | | | [place] [address] | | | | | | [phone] | | | +--------+ + + + [...] + +--------+ + + + | X-RAY PELVIS 1 VIEW | Routin | 11/06/2004 | | Results for this | | | e | 11:01 PM | | procedure are in the | | | | PDT | | results section. | + +--------+ + + + | X-RAY CHEST 1 VIEW | Routin | 11/06/2004 | | Results for this | | | e | 11:01 PM | | procedure are in the | | | | PDT | | results section. | + +--------+ + + + documented in this encounter Results CHEST 1 VIEW (11/06/2004 11:01 PM PDT) + + + + + + | Component | Value | Ref Range | Performed | Pathologist | | | | | At | Signature | + + + + + + | CHEST, 1 | Radiologist 1: ROSAS, | | | | | VIEW | JOLENE V.EXAM: AP | | | | | | chest. COMPARISON: None | | | | | | INDICATION: Trauma | | | | | | FINDINGS: Right sided | | | | | | Chest tube has been | | | | | | placed with its | | | | | | tipinvolving the lower | | | | | | right hemithorax. | | | | | | Numerous right sided | | | | | | ribfractures are present | | | | | | with an extrapleural | | | | | | hematoma. There is | | | | | | nolarge pleural | | | | | | effusion. Small | | | | | | subcutaneous emphysema | | | | | | seen alongthe right | | | | | | Chest wall and a | | | | | | moderate amount in the | | | | | | right neck.Small | | | | | | pneumomediastinum is | | | | | | present. Cardiac | | | | | | silhouette is | | | | | | mildlyenlarged. | | | | | | Mediastinum remains | | | | | | widened, most consistent | | | | | | withmediastinal | | | | | | lipomatosis. Areas of | | | | | | moderate atelectasis is | | | | | | seen inboth lower lobes, | | | | | | left greater than | | | | | | right. There is no | | | | | | evidencefor pulmonary | | | | | | edema. No residual | | | | | | pneumothorax seen. | | | | | | IMPRESSION: 1. Right | | | | | | sided Chest tube placed. | | | | | | With moderate | | | | | | bibasilaratelectasis, | | | | | | left greater than right. | | | | | | 2. Numerous right sided | | | | | | fractures. [...] | | | + +---------+ + + PELVIS 1 VIEW (11/06/2004 11:01 PM PDT) + + + + + + | Component | Value | Ref Range | Performed | Pathologist | | | | | At | Signature | + + + + + + | PELVIS 1 | Radiologist 1: CHRISTINA | | | | | MELLO | J. LIAM, | | | | | | Ramon-Radiologist 2: | | | | | | NIKHIL VEGAROSTUDY: | | | | | | Pelvis AP view | | | | | | COMPARISON: None | | | | | | CLINICAL DATA: Trauma | | | | | | FINDINGS: The bones are | | | | | | intact without evidence | | | | | | of fracture or | | | | | | focaldestruction. The | | | | | | hip joint spaces are | | | | | | maintained and the | | | | | | femoralhead articular | | | | | | surfaces are smooth. | | | | | | The sacroiliac joints | | | | | | andsymphysis pubis are | | | | | | normal. There is a | | | | | | large amount of right | | | | | | bodywall soft tissue | | | | | | gas. IMPRESSION: 1. No | | | | | | pelvic fracture. | | | | + + + [...]
--- OUTSIDE RECORDS SUMMARY | ~2019-05-02 | XMS | Encounter Summary ---
Demographics + + + | Address | [address] | | | [place] [address] | + + + | Home Phone [...] + | Shlomo Holliday | ECON | [address] | | | | | [place] | | | | | [address] | | + + + + + Care Team Providers + +------+ + | Care Jira Developer Name | Role | Phone | [...] [place] | | | | | | [address] | [address] | | | | | | Phone: | TAVON MILLER | | | | | | [phone] | 15 | | | | | | Fax: | [place] | | | | | | [phone] | [address] | | | | | | | Phone: | | | | | | | [phone] | | | | | | | Fax: | | | | | | | [phone] | + + + + + + [...] | | | | | | | [address] | | | | | | | [facility] [place] | | | | | | | [place] [address] | | | | | | | Phone: | | | | | | | [phone] | | | | | | | Fax: | | | | | | | [phone] | +--------+--------+ + + + + Encounter Details +--------+---------+ + + + | Date | Type | Department | Care Team | Description | +--------+---------+ + + + | 01/14/ | Office | [facility] | [place], | Right wrist pain | | 2019 | Visit | [facility] | [address] | (Primary Dx); Carpal | | | | MEDICINE [facility] | [place] [address] | tunnel syndrome of | | | | [address] | [phone] | right wrist | | | | [place], [place] | | | | | | [address] | | | | | | [phone] | | | +--------+---------+ + + + [...] Saez, RADHA - 01/14/2019 9:00 AM PDT [facility]: Orthopedic Surgery Patient Name:Marshall Holliday [...] COLECTOMY ? HX: large intestinal CA / [place], [place] COLONOSCOPY x 2 OR 3 CORONARY [...] MD This document has been prepared with [employer] voice recognition system. The possibility of "s ound alike" medical transcription errors, and additions, or deletions may occur. [...]
--- OUTSIDE RECORDS SUMMARY | ~2019-05-02 | XMS | Encounter Summary ---
Demographics + + + | Address | [address] | | | [place] [address] | + + + | Home Phone | | + + + | Preferred Language | Unknown | + + + | Marital Status | | + + + | Latter-Day Affiliation | 1041 | + + + [...] + | Shlomo Holliday | ECON | [address] | | | | | [place] | | | | | [address] | | + + + + + Care Team Providers + +------+ + | Care Shot Lighter Name | Role | Phone | + [...] + + | 01/15/ | Telephone | [facility] | [place], | Other (Medication | | 2019 | | [facility] | [address] | question) | | | | [address] | [place] [address] | | | | | [place], [place] | [phone] | | | | | [address] | | | | | | [phone] | | | +--------+ + + + [...]
--- OUTSIDE RECORDS SUMMARY | ~2019-05-02 | XMS | Encounter Summary ---
Demographics + + + | Address | [address] | | | [place] [address] | + + + | Home Phone | | + + + | Preferred Language | Unknown | + + + | Marital Status | | + + + | Holiness Affiliation | 1041 | + + + | Race | Unknown | + + + | Ethnic Group | Unknown | + + + Author + + + | Author | [facility] | | | and [place] | + + + | Organization | [facility] | | | and [place] | + + + | Address | Unknown | + + + | Phone | Unavailable | + + + Support + + + + + | Name | Relationship | Address | Phone | + + + + + | Shlomo Holliday | ECON | [address] | | | | | [place] | | | | | [address] | | + + + + + Care Team Providers + +------+ + | Care Communications Equipment Operator Name | Role | Phone | + +------+ + | Manjit Patterson DO | PCP | | + +------+ + Reason for Visit +--------+ + | Reason | Comments | +--------+ + | Other | Therapy chart note | +--------+ + Encounter Details +--------+ + + + + | Date | Type | Department | Care Team | Description | +--------+ + + + + | 03/18/ | Telephone | [facility] | [place], | Other (Therapy chart | | 2019 | | [facility] | [address] | note) | | | | MEDICINE [facility] | [place] [address] | | | | | [address] | [phone] | | | | | [place], [place] | | | | | | [address] | | | | | | [phone] | | | +--------+ + + + [...]
--- OUTSIDE RECORDS SUMMARY | ~2019-05-02 | XMS | Encounter Summary ---
Demographics + + + | Address | [address] | | | [place] [address] | + + + | Home Phone [...] + + + | Author | [facility] | + + + | Organization | [facility] | + + + | Address | Unknown | + + + | Phone | Unavailable | + + + Support + + +---------+ + | Name | Relationship | Address | Phone | + + +---------+ + | Shlomo Holliday | ECON | Unknown | | + + +---------+ + Care Team Providers + +------+ + | Care Bailing Machine Operator Name | Role | Phone [...] [id number] | | | | | | [place], [facility]ated [facility] | | | | | | [place], [place] | | | | | | [address] | | | | | | [phone] | | | +--------+ + + + [...]
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
--- OUTSIDE RECORDS SUMMARY | ~2019-05-02 | XMS | Encounter Summary ---
Demographics + + + | Address | [address] | | | [place] [address] | + + + | Home Phone | | + + + | Preferred Language | Unknown | + + + | Marital Status | | + + + | Faith Affiliation | NON | + + + [...] Team Providers + +------+ + | Care Residential Direct Support Professional Name | Role | Phone | + [...] [address] | | | | | [address] | [address] | | | | | Loop Mailcode: | [place], [place] | | | | | [address] Physician's | [address] | | | | | [place], | [phone] | | | | | [place] [address] | | | | | | [phone] | | | +--------+ + + + [...]
--- OUTSIDE RECORDS SUMMARY | ~2019-05-02 | XMS | Clinical Summary ---
Demographics + + + | Address | [address] | | | [place] [address] | + + + | Home Phone | | + + + | Preferred Language | Unknown | + + + | Marital Status | | + + + | Scientologist Affiliation | 1041 | + + + | Race | Unknown | + + + | Ethnic Group | Unknown | + + + Author + + + | Author | [employer] (Historical as of | | | 12-20-18) | + + + | Organization | [facility] [employer] [employer] (Historical as of | | | 12-20-18) | + + + | Address | Unknown | + + + | Phone | Unavailable | + + + Support + + + + + | Name | Relationship | Address | Phone | + + + + + | Shlomo Encarnacion | ECON | [address] | | | | | [place] | | | | | [address] | | + + + + + | Detailed,Message | ECON | Unknown | | + + + + + Care Team Providers + +------+ + | Care Fish Technologist Name | Role | Phone | + [...] Overview: Added automatically from request for surgery [id number] | + + + + + | [...] | | | + +--------+ +------+-------+---------+ | JET/[facility] | YELLOW | [id number] | | | | | PLANS | [...] | Self | [birth year] | Home: | [address] | | JACQUELYN | al/Dariel | | 1955 | [phone] [place] | | | daryn | | | [phone] | [address] | + +--------+ +--------+ + +
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
--- OUTSIDE RECORDS SUMMARY | ~2019-05-02 | XMS | Encounter Summary ---
Demographics + + + | Address | [address] | | | [place] [address] | + + + | Home Phone | | + + + | Preferred Language | Unknown | + + + | Marital Status | | + + + | Shinto Affiliation | NON | + + + | Race | or | + + + | Ethnic Group | Not or | + + + Author + + + | Author | [facility] | + + + | Organization | [facility] | + + + | Address | Unknown | + + + | Phone | Unavailable | + + + Support + + +---------+ + | Name | Relationship | Address | Phone | + + +---------+ + | Shlomo Holliday | ECON | Unknown | | + + +---------+ + Care Team Providers + +------+ + | Care Counter Weigher Name | Role | Phone | + [...] [id number] | | | | | | [place], [place] | | | | | | [address] | | | | | | [phone] | | | +--------+ + + + [...]
--- OUTSIDE RECORDS SUMMARY | ~2019-05-02 | XMS | Encounter Summary ---
Demographics + + + | Address | [address] | | | [place] [address] | + + + | Home Phone [...] Team Providers + +------+ + | Care Floor Scrubber Name | Role | Phone | + [...]
--- OUTSIDE RECORDS SUMMARY | ~2019-05-02 | XMS | Encounter Summary ---
Demographics + + + | Address | [address] | | | [place] [address] | + + + | Home Phone | | + + + | Preferred Language | Unknown | + + + | Marital Status | | + + + | Sikh Affiliation | NON | + + + [...] Team Providers + +------+ + | Care Product Safety Lead Name | Role | Phone | + [...] as of this encounter Progress Notes Interface, Stem Lead Former In - 11/27/2005 2:07 AM PDT [id number] [address] [id number] Clinic Date: 11/08/2005 Clinic: Referring Physician: Francisco Estrada M.D. Subjective: The patient is a 50-year-old male seen today for neurosurgical consultation. 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 Cardona or Dr. Birmingham at [facility]. 2. Right wrist brace. 3. Follow up after the electrophysiologic studies. This patient was seen in conjunction with Dr. Griffin. He is in agreement with my findings and recommendations. His letter will follow under a separate cover. Claude Leblanc P.A.-C. / JOSIAH [id number] / [id number] / [id number] / [id number] cc: Francisco Estrada M.D. [address] [place] [address] Electronically signed by Claude Leblanc 11-26-2005 03:07:45 PM documented i n this encounter Plan of Treatment Not on filedocumented as of this encounter Visit Diagnoses Not on filedocumented in this encounter"
--- OUTSIDE RECORDS SUMMARY | ~2019-05-02 | XMS | Encounter Summary ---
Demographics + + + | Address | [address] | | | [place] [address] | + + + | Home Phone | | + + + | Preferred Language | Unknown | + + + | Marital Status | | + + + | Anabaptist Affiliation | NON | + + + [...] Team Providers + +------+ + | Care Family Consumer Scientist Name | Role | Phone | + +------+ + PCP | Unavailable | + +------+ + Encounter Details +--------+ + + + + | Date | Type | Department | Care Team | Description | +--------+ + + + + | 11/12/ | Results | | Senia Alicea MD | | | 2004 | Only | | [address] | | | | | | [place] [address] | | | | | | [phone] | | | | | | | [...] | | + +---------+ + + | [facility] DEPARTMENT | | | | | RADIOLOGY | | | | + +---------+ + + documented in this encounter Visit Diagnoses Not on filedocumented in this encounter"
--- OUTSIDE RECORDS SUMMARY | ~2019-05-02 | XMS | Encounter Summary ---
Demographics + + + | Address | [address] | | | [place] [address] | + + + | Home Phone | | + + + | Preferred Language | Unknown | + + + | Marital Status | | + + + | Sabianism Affiliation | 1041 | + + + | Race | Unknown | + + + | Ethnic Group | Unknown | + + + Author + + + | Author | [facility] | | | and [place] | + + + | Organization | [facility] | | | and [place] | + + + | Address | Unknown | + + + | Phone | Unavailable | + + + Support + + + + + | Name | Relationship | Address | Phone | + + + + + | Shlomo Holliday | ECON | [address] | | | | | [place] | | | | | [address] | | + + + + + Care Team Providers + +------+ + | Care Mini Bar Attendant Name | Role | Phone | + +------+ + | Manjit Patterson PCP | | + +------+ + Encounter Details +--------+ + + + + | Date | Type | Department | Care Team | Description | +--------+ + + + + | 02/14/ | Hospital | [facility] | Conversion | Pain | | 2018 | Encounter | CONVERSION [address] | Transaction, | | | | | [address] | Provider Unknown | | | | | [place] | [phone] | | | | | [address] | | | | | | [phone] | | | +--------+ + + + [...]
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
--- OUTSIDE RECORDS SUMMARY | ~2019-05-02 | XMS | Encounter Summary ---
Demographics + + + | Address | [address] | | | [place] [address] | + + + | Home Phone | | + + + | Preferred Language | Unknown | + + + | Marital Status | | + + + | Sabianist Affiliation | 1041 | + + + | Race | Unknown | + + + | Ethnic Group | Unknown | + + + Author + + + | Author | [facility] | | | and [place] | + + + | Organization | [facility] | | | and [place] | + + + | Address | Unknown | + + + | Phone | Unavailable | + + + Support + + + + + | Name | Relationship | Address | Phone | + + + + + | Shlomo Holliday | ECON | [address] | | | | | [place] | | | | | [address] | | + + + + + Care Team Providers + +------+ + | Care Assembler Bonding Name | Role | Phone | + +------+ + | Manjit Patterson PCP | | + +------+ + Encounter Details +--------+ + + + + | Date | Type | Department | Care Team | Description | +--------+ + + + + | 04/06/ | Hospital | [facility] [place] [facility] IP | Conversion | Pain | | 2018 | Encounter | [address]VERSION [address] | Transaction, | | | | | [address] | Provider Unknown | | | | | [place] | [phone] | | | | | [address] | | | | | | [phone] | | | +--------+ + + + [...]
--- OUTSIDE RECORDS SUMMARY | ~2019-05-02 | XMS | Encounter Summary ---
Demographics + + + | Address | [address] | | | [place] [address] | + + + | Home Phone [...] Team Providers + +------+ + | Care Coremaker Name | Role | Phone | + [...] [address] | | | | | [place], [place] | [place], [place] | | | | | [address] | [address] | | | | | [phone] | [phone] | | | | | | | [...]
--- OUTSIDE RECORDS SUMMARY | ~2019-05-02 | XMS | Encounter Summary ---
Demographics + + + | Address | [address] | | | [place] [address] | + + + | Home Phone [...] Providers + +------+ + | Care Senior Construction Manager Name | Role | Phone | [...] as of this encounter Discharge Summaries Interface, Equine Internship In - 12/03/2004 10:45 AM [facility] [id number] [address] Admission Date: 11/06/2004 Discharge Date: [...] displaced rib fractures. Transfer was initiated to [facility] to test this patient for a peritoneal hemorrhage and the lack of angio facilities at the outside hospital. Physical Examination: General: Upon arrival to the [facility] Emergency Department, the patient was awake, alert, [...] outside hospital and then reevaluated here at [facility] with a CT scan of the chest [...] his rib fractures, initially controlled by morphine TIMBER MANAGEMENT PROFESSOR. Then, he was transitioned to oral medicines; [...] Estrada, his primary care physician at the [facility], followup is in 1 week or sooner if problems. The number is [phone]. The patient is also instructed to call to the Trauma Clinic, given the number, if he has any other questions. Very specific instructions were given to him that if he runs into any trouble with breathing or difficulties to go directly to a local Emergency Department. Tam Falcon M.D. Colton Werner M.D. J[place] / [id number] / [id number] / [id number] / [id number] cc: Francisco Estrada M.D. [facility] Electronically signed by Colton Werner 11-21-2004 12:06:17 PM documented i n this encounter Plan of Treatment Not on filedocumented as of this encounter Visit Diagnoses Not on filedocumented in this encounter"
--- OUTSIDE RECORDS SUMMARY | ~2019-05-02 | XMS | Encounter Summary ---
Demographics + + + | Address | [address] | | | [place] [address] | + + + | Home Phone | | + + + | Preferred Language | Unknown | + + + | Marital Status | | + + + | Buddhist Affiliation | 1041 | + + + | Race | Unknown | + + + | Ethnic Group | Unknown | + + + Author + + + | Author | [facility] | | | and [place] | + + + | Organization | [facility] | | | and [place] | + + + | Address | Unknown | + + + | Phone | Unavailable | + + + Support + + + + + | Name | Relationship | Address | Phone | + + + + + | Shlomo Holliday | ECON | [address] | | | | | [place] | | | | | [address] | | + + + + + Care Team Providers + +------+ + | Care Dental Aide Name | Role | Phone | + +------+ + | Manjit Patterson PCP | | + +------+ + Encounter Details +--------+ + + + + | Date | Type | Department | Care Team | Description | +--------+ + + + + | 02/14/ | Hospital | [facility] | Conversion | Pain | | 2018 | Encounter | CONVERSION [address] | Transaction, | | | | | [address] | Provider Unknown | | | | | [place] | [phone] | | | | | [address] | | | | | | [phone] | | | +--------+ + + + [...]
--- OUTSIDE RECORDS SUMMARY | ~2019-05-02 | XMS | Encounter Summary ---
Demographics + + + | Address | [address] | | | [place] [address] | + + + | Home Phone | | + + + | Preferred Language | Unknown | + + + | Marital Status | | + + + | Tenriism Affiliation | 1041 | + + + | Race | Unknown | + + + | Ethnic Group | Unknown | + + + Author + + + | Author | [facility] | | | and [place] | + + + | Organization | [facility] | | | and [place] | + + + | Address | Unknown | + + + | Phone | Unavailable | + + + Support + + + + + | Name | Relationship | Address | Phone | + + + + + | Shlomo Holliday | ECON | [address] | | | | | [place] | | | | | [address] | | + + + + + Care Team Providers + +------+ + | Care Machine Greaser Name | Role | Phone | + [...] + + | 03/18/ | Telephone | [facility] | [place], | Other (Therapy chart | | 2019 | | [facility] | [address] | note) | | | | [facility] | [place] [address] | | | | | [address] | [phone] | | | | | [place], [place] | | | | | | [address] | | | | | | [phone] | | | +--------+ + + + [...]
--- OUTSIDE RECORDS SUMMARY | 2019-05-02 20:22 | XMS ---
PreManage Notification: REGAN ENCARNACION [employer] Member Events No recent Security Events currently on file [facility] There are no care providers on record at this time. [place] has no Care Guidelines for this patient. [place] VISIT COUNT (12 MO.) 2 [facility] TOTAL 2 NOTE: Visits indicate total known visits. ED/UCC VISIT TRACKING (12 MO.) 05/02/2019 20:20 [facility] [place] TYPE: Emergency COMPLAINT: - ABD PAIN,BOWEL ISSUE 05/22/2018 16:[address] 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
[2019-05-02] MEDS ORDERED: ASPIR 8181 MG PO (20:47)
[2019-05-03] MEDS ORDERED: LOMOTIL TABLET1 EACH PO (01:27)
== END 2019-05-03 01:35 | disposition home or self-care (01) ==
LOC: ED 20:19
DX: K52.9 Noninfective gastroenteritis and colitis, unspecified (principal); E11.9 Type 2 diabetes mellitus without complications; E66.9 Obesity, unspecified; I10 Essential (primary) hypertension; F32.9 Major depressive disorder, single episode, unspecified; Z91.030 Bee allergy status; Z79.899 Other long term (current) drug therapy; Z79.82 Long term (current) use of aspirin; Z79.4 Long term (current) use of insulin; Z85.038 Personal history of other malignant neoplasm of large intestine
CPT/HCPCS: 74177; 80053; 81001; 83690; 83735; 85025; 85610; 99284-25; J2405; J7030; Q9967

== ENCOUNTER 2019-06-22 08:42 | Inpatient (IN) | payer MEDICARE, OTHER ==
[~2019-06-22] VITALS: Ht 175.3 cm; Wt 130.2 kg
[~2019-06-22 08:42] MED LIST changes: +ASPIR 8181 MG PO; +LOMOTIL TABLET1 EACH PO
--- NOTE | 2019-06-22 14:06 | NUR ---
PATIENT RESTING IN BED. VITAL SIGNS AND I&O DONE. CALL LIGHT WITHIN REACH. NO OTHER NEEDS AT THIS TIME
--- NOTE | 2019-06-22 14:14 | NUR ---
PT UP TO THE TOILET AMBULATES INDEPENDANTLY STEADY ON HIS FEET. DENIES PAINFUL URINATION, STATES THIS HAS RESOLVED. RETURNS TO RESTING IN BED
--- NOTE | 2019-06-22 16:39 | NUR ---
MED REC COMPLETE
--- NOTE | 2019-06-22 17:30 | NUR ---
PATIENT RESTING IN BED. VITAL SIGNS AND I&O DONE. CALL LIGHT WITHIN REACH. NO OTHER NEEDS AT THIS TIME
--- NOTE | 2019-06-22 19:38 | EKG ---
[facility] [address] [place], [place] [address] Signed Sinus tachycardia Left axis deviation Abnormal ECG When compared with ECG of 27-MAY-2018 19:54, No significant change was found Confirmed by FREDY EDWARDS DO ([id number]) on 06/22/2019 7:38:15 PM Electronically Signed By: FREDY EDWARDS DO 06/22/19 1938 PATIENT NAME: REGAN ENCARNACION KATLYNRACHEL Electrocardiogram DATE OF : 51 PHYSICIAN: FREDY EDWARDS DO REPORT #: [id number] REPORT IS CONFIDENTIAL AND NOT TO BE RELEASED WITHOUT AUTHORIZATION
--- NOTE | 2019-06-22 19:39 | NUR ---
BEDSIDE REPORT RECEIVED FROM SURINDER GARVEY. pt RESTING IN BED AWAKE. DENIES PAIN, DENIES NAUSEA. IVF BOLUS STARTED BY THIS RN, INFUSING WNL. CALL LIGHT IN REACH. ICE CHIPS PROVIDED.
--- NOTE | 2019-06-22 20:28 | NUR ---
CALL LIGHT ANSWERED. pt C/O CASTILLO PAIN, ABD DISCOMFORT. PRN MAALOX ADMINISTERED. IV SITE DISTAL OCCLUSION. NEW IV STARTED LEFT FOREARM. IVF INFUSING WNL ORDERED. pt DENIES DISCOMFORT W URINATION. VSS. ASSESSMENT COMPLETE. CALL LIGHT IN REACH.
--- NOTE | 2019-06-23 00:12 | NUR ---
CALL LIGHT ANSWERED. pt PROVIDED WITH SWEAT PANTS FROM CLOSET, SMALL INCONTINENCE IN UNDERWEAR. URINE HAT EMPTIED. pt RESTING IN BED, VSS. DENIES PAIN. NEW BAG IVF INFUSING WNL ORDERED. CALL LIGHT IN REACH.
--- NOTE | 2019-06-23 03:08 | NUR ---
CALL LIGHT ANSWERED. SBA TO RESTROOM FOR VOID AND BACK TO BED. ASSESSMENT COMPLETE. pt DENIES ANY PAIN. CONTINUES TO FEEL URGENCY TO VOID. ICE WATER PROVIDED. NO ADDITIONAL REQUESTS. CALL LIGHT IN REACH. IVF INFUSING WNL ORDERED.
--- NOTE | 2019-06-23 06:33 | NUR ---
pt WITH URGENCY, VOIDING QS. SBA/INDEPENDENT WITH AMBULATION. IVF INFUSING WNL ORDERED. C/O CASTILLO PAIN, PRN TYLENOL X 2 THIS SHIFT. CBG 254 AT HS. SS INSULIN. USING CALL LIGHT APPROPRIATELY.
--- NOTE | 2019-06-23 13:23 | NUR ---
PT RESTING AT THIS TIME, EYES CLOSED. NO DISTRESS NOTED, RESP EVEN AND NON LABORED. PERSONAL SUPPLIES AND CALL LIGHT WITHIN REACH. NO NEEDS AT THIS TIME.
--- NOTE | 2019-06-23 18:04 | NUR ---
MRDD. ALERT TO SELF. TOLERATING PUREED TEXTURED FOODS. 2PA PIVOT TRANSFER. PO MEDS CRUSHED WITH APPLESAUCE. IV LR @75ML/HR, IV/PO ABX. FEBRILE 101.5F; TYLENOL ADMIN DECREASED TO 99.9F. BED ALARM INTACT.
--- NOTE | 2019-06-23 19:05 | NUR ---
TYLENOL 650MG PO ADMIN FOR REPORTS OF CASTILLO 5/10 PAIN LEVEL.
--- NOTE | 2019-06-23 19:15 | NUR ---
pt RESTING IN BED WITH . DENIES PAIN. DENIES ADDITIONAL NEEDS AT THIS TIME. IV SALINE LOCKED. CALL LIGHT IN REACH.
--- NOTE | 2019-06-23 22:10 | NUR ---
pt RESTING IN BED WATCHING TV. CBG 233, SS INSULIN ADMINISTERED ORDERED. pt DENIES PAIN. IV NOT PATENT RIGHT AC, D/C'D WNL. ASSESSMENT COMPLETE. CALL LIGHT IN REACH.
--- NOTE | 2019-06-24 00:20 | NUR ---
CALL LIGHT ANSWERED. pt BACK IN BED AFTER VOID. URINE HAT EMPTIED.
--- NOTE | 2019-06-24 02:39 | NUR ---
CHECKED ON pt. RESTING IN BED ON RIGHT SIDE. BREATHING UNLABORED. LIGHTS OFF IN ROOM.
--- NOTE | 2019-06-24 05:17 | NUR ---
pt RESTED WELL THROUGHOUT SHIFT. NO C/O PAIN. URINARY URGENCY IMPROVING PER pt. IV SL. USING CALL LIGHT APPROPRIATELY. INDEPENDENT IN ROOM.
--- NOTE | 2019-06-24 06:09 | NUR ---
pt SLEEPING, AWAKENS TO VOICE. VSS. URINE HAT EMPTIED. ASSESSMENT COMPLETE. pt DENIES ANY PAIN. ICE WATER PROVIDED. CALL LIGHT IN REACH.
--- NOTE | 2019-06-24 07:22 | NUR ---
PT IN BED RESTING, EYES CLOSED. PT HAS NO DISTRESS NOTED. RESP EVEN AND NON LABORED. PERSONAL SUPPLIES AND CALL LIGHT WITHIN REACH.
--- NOTE | 2019-06-24 08:00 | NUR ---
PATIENT RESTING IN BED. PATIENT REFUSED TO TAKE A SHOWER TODAY BECAUSE HE TOOK A SHOWER YESTERDAY. CALL LIGHT WITHIN REACH. NO OTHER NEEDS AT THIS TIME
--- NOTE | 2019-06-24 09:26 | NUR ---
PATIENT RESTING IN BED. VITAL SIGNS AND I&O DONE. COFFEE GIVEN. CALL LIGHT WITHIN REACH. NO OTHER NEEDS AT THIS TIME
--- NOTE | 2019-06-24 11:00 | NUR ---
In to speak with Marshall. He is dressed and states his ride is waiting. Denies needs for dc. Nurse informed and she states she is waiting for dc orders. Marshall updated and states he will call and tell family to wait.
[2019-06-24] MEDS ORDERED: CEFPODOXIME PR200 MG PO (11:07)
--- NOTE | 2019-06-24 15:55 | NUR ---
BROUGHT OUT ANOTHER EDUCATION ON UTI, WENT OVER BRIEFLY WITH HIM ABOUT THIS, PT SITTING IN THE CHAIR IN ROOM ALL DRESSED READY TO LEAVE. WAITING FOR HIS INSTRUCTIONS, AND RIDE OUT OF THE HOSPITAL. STATES UNDERSTANDING, DENIES QUESTIONS.
[2019-06-25] MEDS ORDERED: CIPROFLOXACIN500 MG PO (11:30)
== END 2019-06-24 11:42 | disposition home or self-care (01) | DRG 872 ==
LOC: ED 08:42 → MS 11:41
PROVIDERS: ADMIT Student in an Organized Health Care Education/Training Program
DX: A41.59 Other Gram-negative sepsis (principal); N39.0 Urinary tract infection, site not specified; E11.9 Type 2 diabetes mellitus without complications; E79.0 Hyperuricemia without signs of inflammatory arthritis and tophaceous disease; N40.0 Benign prostatic hyperplasia without lower urinary tract symptoms; F39 Unspecified mood [affective] disorder; E83.42 Hypomagnesemia; N20.0 Calculus of kidney; Z79.899 Other long term (current) drug therapy; Z79.82 Long term (current) use of aspirin; Z79.4 Long term (current) use of insulin
CPT/HCPCS: 36415; 71045; 74176; 80048; 80053; 81001; 83605; 83690; 83735; 84484; 85025; 87077; 87088; 87186; 93005; 93010; 96361; 96365; 96367; 96375; 99285-25; J0696; J1650; J1815; J2405; J3475; J7030; J7121

== ENCOUNTER 2019-07-06 12:47 | Emergency (ER) | payer MEDICARE, OTHER ==
[~2019-07-06] VITALS: Ht 175.3 cm; Wt 129.3 kg
[~2019-07-06 12:47] MED LIST changes: +CIPROFLOXACIN500 MG PO
--- OUTSIDE RECORDS SUMMARY | 2019-07-06 12:50 | XMS ---
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 Care History Medical/Surgical 05/04/2019 [facility] \T\middot;\T\nbsp; PATIENT- [facility] ELIGIBLE \T\middot;\T\nbsp; PLEASE REFER PATIENT TO [facility] FOR NON EMERGENT MEDICAL NEEDS. \T\middot;\ T\nbsp; [facility] CAN SEE PATIENTS SAME DAY FOR APTS IF PATIENT CALLS FIRST THING IN THE MORNING. E.D. VISIT COUNT (12 MO.) 3 [facility] TOTAL 3 NOTE: Visits indicate total known visits. ED/UCC VISIT TRACKING (12 MO.) 07/06/2019 12:47 [facility] [place] TYPE: Emergency COMPLAINT: - COLD SYMPTOMS 06/22/2019 08:42 [facility] [place] TYPE: Emergency COMPLAINT: - URINE PROBLEM, BODY ACHES 05/02/2019 20:20 [facility] [place] TYPE: Emergency COMPLAINT: - ABD PAIN,BOWEL ISSUE DIAGNOSES: - 1 Type 2 diabetes mellitus without complications - Personal history of malignant neoplasm of large intestine - Other terminal make up operator (current) drug therapy - Cough - Major depressive disorder, single episode, unspecified - terminal superintendent (current) use of aspirin - Essential (primary) hypertension - [facility] (current) use of insulin - Noninfective gastroenteritis and colitis, unspecified - Bee allergy status - Obesity, unspecified INPATIENT VISIT TRACKING (12 MO.) 06/22/2019 11:[address] [facility] [place] TYPE: Medical Surgical COMPLAINT: - UTI DIAGNOSES: - Unspecified mood [affective] disorder - Calculus of kidney - Benign prostatic hyperplasia without lower urinry tract symp - Hyperuricemia w/o signs of inflam arthrit and tophaceous dis - terminal superintendent (current) use of aspirin - Sepsis, unspecified organism Sepsis, u - Other Gram-negative sepsis Other Gra - Urinary tract infection, site not specified - 1 Type 2 diabetes mellitus without complications - Other detention (current) drug therapy - Hypomagnesemia - terminal superintendent (current) use of insulin [email or web address]
--- NOTE | 2019-07-06 20:30 | EKG ---
[facility] [address] [facility] [place] [address] Signed Normal sinus rhythm Left axis deviation Pulmonary disease pattern Prolonged QT Abnormal ECG When compared with ECG of 22-JUN-2019 09:10, T wave amplitude has decreased in Anterolateral leads Confirmed by FREDY EDWARDS DO ([id number]) on 07/06/2019 8:30:35 PM Electronically Signed By: FREDY EDWARDS DO 07/06/19 2030 PATIENT NAME: REGAN ENCARNACION KATLYNRACHEL Electrocardiogram DATE OF : 51 PHYSICIAN: FREDY EDWARDS DO REPORT #: [id number] REPORT IS CONFIDENTIAL AND NOT TO BE RELEASED WITHOUT AUTHORIZATION
== END 2019-07-06 17:14 | disposition home or self-care (01) ==
LOC: ED 12:47
DX: J20.9 Acute bronchitis, unspecified (principal); E11.9 Type 2 diabetes mellitus without complications; E66.9 Obesity, unspecified; I10 Essential (primary) hypertension; F32.9 Major depressive disorder, single episode, unspecified; Z91.030 Bee allergy status; Z79.899 Other long term (current) drug therapy; Z79.4 Long term (current) use of insulin; Z79.82 Long term (current) use of aspirin
CPT/HCPCS: 71045; 80053; 83735; 84484; 85025; 87502; 93005; 93010; 96374; 99284-25; J2405

== ENCOUNTER 2020-09-01 16:40 | Emergency (ER) | payer OTHER ==
[~2020-09-01] VITALS: Ht 175.3 cm; Wt 133.4 kg
--- OUTSIDE RECORDS SUMMARY | 2020-09-01 16:46 | XMS ---
PreManage Notification: REGAN ENCARNACION Security Business Process Lead Events No recent Security Events currently on file CRITERIA MET - History of Sepsis Dx CARE PROVIDERS [facility]/[place] 05/04/2019-[facility] PHONE: [phone] [place] has no Care Guidelines for this patient. Care History Medical/Surgical 05/04/2019 [facility] \T\middot;\T\nbsp; PATIENT- [facility] ELIGIBLE \T\middot;\T\nbsp; PLEASE REFER PATIENT TO [facility] FOR NON EMERGENT MEDICAL NEEDS. \T\middot;\ T\nbsp; [facility] CAN SEE PATIENTS SAME DAY FOR APTS IF PATIENT CALLS FIRST THING IN THE MORNING. E.D. VISIT COUNT (12 MO.) [address] [place] [address] TOTAL 1 NOTE: Visits indicate total known visits. ED/UCC VISIT TRACKING (12 MO.) 09/01/2020 16:41 [facility] TYPE: Emergency COMPLAINT: - COUGH,SOB INPATIENT VISIT TRACKING (12 MO.) 04/26/2020 11:09 [facility] Niko Smiley [place] TYPE: Surgery DIAGNOSES: - Primary osteoarthritis, right shoulder - Morbid (severe) obesity due to excess calories - Morbid (severe) obesity with alveolar hypoventilation - Shortness of breath - Bicipital tendinitis, right shoulder - Other specified postprocedural states - Body mass index [BMI]40.0-44.9, adult - Type 2 diabetes mellitus with unspecified complications - Strain of muscle(s) and tendon(s) of the rotator cuff of right shoulder, initial encounter [id number]
[2020-09-01] MEDS ORDERED: OZEMPIC1 MG/0.75 SQ (16:48)
[2020-09-01] MEDS ORDERED: LISINOPRIL10 MG PO (16:49)
[2020-09-01] MEDS ORDERED: PREDNISONE20 MG PO (16:49)
[2020-09-01] MEDS ORDERED: ARNUITY ELLIPT50 MCG IH (16:50)
[2020-09-01] MEDS ORDERED: VITAMIN D21250 MCG PO (16:51)
[2020-09-01] MEDS ORDERED: VENTOLIN HFA18 GM INH ×2 (16:51→17:47)
[2020-09-01] MEDS ORDERED: ROSUVASTATIN CA40 MG PO (16:52)
[2020-09-01] MEDS ORDERED: HYDROCODON-ACE1 EA10 PO (16:53)
[2020-09-01] MEDS ORDERED: ALLER-EASE180 MG PO (16:53)
[2020-09-01] MEDS ORDERED: ZITHROMAX250 MG PO (17:47)
[2020-09-01] MEDS ORDERED: GUAIFEN-CODEINE10 ML PO (17:47)
--- NOTE | 2020-09-02 17:14 | EKG ---
[facility] [address] [facility] [place] [address] Signed Sinus tachycardia with occasional premature ventricular complexes Left axis deviation Abnormal ECG When compared with ECG of 06-JUL-2019 14:23, premature ventricular complexes are now present Confirmed by LUISANA GARCIA MD ([id number]) on 09/02/2020 5:14:22 PM Electronically Signed By: LUISANA GARCIA MD 09/02/20 1714 PATIENT NAME: REGAN ENCARNACION KATLYNRACHEL Electrocardiogram DATE OF : 51 PHYSICIAN: LUISANA GARCIA MD REPORT #: [id number] REPORT IS CONFIDENTIAL AND NOT TO BE RELEASED WITHOUT AUTHORIZATION
== END 2020-09-01 18:00 | disposition home or self-care (01) ==
LOC: ED 16:40
DX: J40 Bronchitis, not specified as acute or chronic (principal); E11.9 Type 2 diabetes mellitus without complications; E66.9 Obesity, unspecified; I10 Essential (primary) hypertension; Z91.030 Bee allergy status; Z79.899 Other long term (current) drug therapy; Z79.82 Long term (current) use of aspirin; Z79.52 Long term (current) use of systemic steroids; Z79.4 Long term (current) use of insulin
CPT/HCPCS: 71045; 80053; 83880; 84484; 85025; 93005; 93010; 94640; 99284-25

== ENCOUNTER 2021-05-09 09:18 | Emergency (ER) | payer MEDICARE, OTHER ==
[~2021-05-09] VITALS: Ht 175.3 cm; Wt 133.4 kg
[2021-05-09] MEDS ORDERED: ONDANSETRON ODT8 MG PO (10:49)
== END 2021-05-09 10:59 | disposition home or self-care (01) ==
LOC: ED 09:18
DX: U07.1 COVID-19 (principal); E11.9 Type 2 diabetes mellitus without complications; E66.9 Obesity, unspecified; I10 Essential (primary) hypertension; Z91.030 Bee allergy status; Z79.899 Other long term (current) drug therapy; Z79.82 Long term (current) use of aspirin; Z79.84 Long term (current) use of oral hypoglycemic drugs; Z85.038 Personal history of other malignant neoplasm of large intestine
CPT/HCPCS: 71045; 99285-25; A9270; C9803; U0003

== ENCOUNTER → 2021-05-09 | Emergency (ER) | payer OTHER ==
[~2021-05-09] VITALS: Ht 175.3 cm; Wt 133.4 kg
[~2021-05-09] MED LIST changes: +ALLER-EASE180 MG PO; +ARNUITY ELLIPT50 MCG IH; +GUAIFEN-CODEINE10 ML PO; +HYDROCODON-ACE1 EA10 PO; +LISINOPRIL10 MG PO; +OZEMPIC1 MG/0.75 SQ; +PREDNISONE20 MG PO; +ROSUVASTATIN CA40 MG PO; +VENTOLIN HFA18 GM INH; +VITAMIN D21250 MCG PO; +ZITHROMAX250 MG PO
--- OUTSIDE RECORDS SUMMARY | 2021-05-09 12:08 | XMS ---
PreManage Notification: REGAN ENCARNACION Security Administrative Nursing Supervisor Events No recent Security Events currently on file CRITERIA MET - [facility] - 2 Visits in 30 Days CARE PROVIDERS [facility]/[place] 05/04/2019-[facility] PHONE: [phone] [place] has no Care Guidelines for this patient. Care History Medical/Surgical 05/04/2019 [facility] \T\middot;\T\nbsp; PATIENT- [facility] ELIGIBLE \T\middot;\T\nbsp; PLEASE REFER PATIENT TO [facility] FOR NON EMERGENT MEDICAL NEEDS. \T\middot;\ T\nbsp; [facility] CAN SEE PATIENTS SAME DAY FOR APTS IF PATIENT CALLS FIRST THING IN THE MORNING. E.D. VISIT COUNT (12 MO.) 3 [facility] TOTAL 3 NOTE: Visits indicate total known visits. ED/UCC VISIT TRACKING (12 MO.) 05/09/2021 11:59 [facility] [place] TYPE: Emergency COMPLAINT: - FLU SYMPTOMS 05/09/2021 09:19 [facility] [place] TYPE: Emergency COMPLAINT: - COUGH, CHEST SORE, HEADACHE, BODY ACHES, CHILLS 09/01/2020 16:41 [facility] [place] TYPE: Emergency COMPLAINT: - COUGH,SOB DIAGNOSES: - Bee allergy status - rn ambulatory (current) use of systemic steroids - Obesity, unspecified - Cough - Other brick yard hand (current) drug therapy - rn ambulatory (current) use of insulin - retirement (current) use of aspirin - Bronchitis, not specified as acute or chronic - Type 2 diabetes mellitus without complications - Essential (primary) hypertension INPATIENT VISIT TRACKING (12 MO.) No inpatient visits to display in this time frame [id number]
== END ==
LOC: ED 11:59
DX: U07.1 COVID-19 (principal); Z23 Encounter for immunization; E11.9 Type 2 diabetes mellitus without complications; E66.9 Obesity, unspecified; I10 Essential (primary) hypertension; Z91.030 Bee allergy status; Z79.899 Other long term (current) drug therapy; Z79.82 Long term (current) use of aspirin; Z79.84 Long term (current) use of oral hypoglycemic drugs
CPT/HCPCS: 99283-25; M0243; Q0244

== ENCOUNTER 2021-07-04 08:07 | Emergency (ER) | payer OTHER ==
[~2021-07-04] VITALS: Ht 175.3 cm; Wt 133.4 kg
--- OUTSIDE RECORDS SUMMARY | 2021-07-04 08:16 | XMS ---
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/[place] 05/04/2019-[facility] PHONE: [phone] [facility] Case Management 05/10/2021-[facility] PHONE: [phone] [place] has no Care Guidelines for this patient. Care History Medical/Surgical 05/10/2021 [facility] PATIENT- [facility] ELIGIBLE PLEASE REFER PATIENT TO [facility] FOR NON EMERGENT MEDICAL NEEDS. [facility] CAN SEE PATIENTS SAME DAY FOR APTS IF PATIENT CALLS FIRST THING IN THE MORNING. E.D. VISIT COUNT (12 MO.) [address] [facility] TOTAL 4 NOTE: Visits indicate total known visits. ED/UCC VISIT TRACKING (12 MO.) 07/04/2021 08:08 [facility] [place] TYPE: Emergency COMPLAINT: - COUGHING, MUCUS, SOB, HEADACHES, NAUSEA 05/09/2021 11:59 [facility] [place] TYPE: Emergency COMPLAINT: - FLU SYMPTOMS DIAGNOSES: - joint terminal attack controller (current) use of oral hypoglycemic drugs - Encounter for immunization - Obesity, unspecified - Essential (primary) hypertension - Other long-term (current) drug therapy - COVID-19 - Type 2 diabetes mellitus without complications - Bee allergy status - joint terminal attack controller (current) use of aspirin 05/09/2021 09:19 [facility] [place] TYPE: Emergency COMPLAINT: - COUGH, CHEST SORE, HEADACHE, BODY ACHES, CHILLS DIAGNOSES: - COVID-19 - Essential (primary) hypertension - Obesity, unspecified - joint terminal attack controller (current) use of oral hypoglycemic drugs - Other long term care administrator (current) drug therapy - Type 2 diabetes mellitus without complications - correction (current) use of aspirin - Weakness - Bee allergy status - Personal history of other malignant neoplasm of large intestine 09/01/2020 16:41 [facility] [place] TYPE: Emergency COMPLAINT: - COUGH,SOB DIAGNOSES: - Bee allergy status - joint terminal attack controller (current) use of systemic steroids - Obesity, unspecified - Cough - Other long-term (current) drug therapy - correction (current) use of insulin - correction (current) use of aspirin - Bronchitis, not specified as acute or chronic - Type 2 diabetes mellitus without complications - Essential (primary) hypertension INPATIENT VISIT TRACKING (12 MO.) No inpatient visits to display in this time frame [id number]
[2021-07-04] MEDS ORDERED: DOXYCYCLINE HY100 MG PO (10:55)
[2021-07-04] MEDS ORDERED: PREDNISONE20 MG PO (10:55)
[2021-07-04] MEDS ORDERED: ROBITUSSIN COU237 M2 PO (10:55)
[2021-07-04] MEDS ORDERED: PROVENTIL HFA6.7 GM INH (10:55)
--- NOTE | 2021-07-05 07:22 | EKG ---
[facility] [address] [facility] [place] [address] Signed Sinus tachycardia with occasional premature ventricular complexes Left axis deviation Abnormal ECG No previous ECGs available Confirmed by CORNEL ADAME MD ([id number]) on 07/05/2021 7:22:13 AM Electronically Signed By: CORNEL ADAME MD 07/05/21721 PATIENT NAME: REGAN ENCARNACION Electrocardiogram DATE OF : 51 PHYSICIAN: CORNEL ADAME MD REPORT #: [id number] REPORT IS CONFIDENTIAL AND NOT TO BE RELEASED WITHOUT AUTHORIZATION
== END 2021-07-04 11:40 | disposition home or self-care (01) ==
LOC: ED 08:07
DX: J42 Unspecified chronic bronchitis (principal); E11.9 Type 2 diabetes mellitus without complications; E66.9 Obesity, unspecified; I10 Essential (primary) hypertension; Z85.038 Personal history of other malignant neoplasm of large intestine; Z91.030 Bee allergy status; Z79.899 Other long term (current) drug therapy; Z79.82 Long term (current) use of aspirin; Z79.51 Long term (current) use of inhaled steroids; Z79.84 Long term (current) use of oral hypoglycemic drugs; Z20.822 Contact with and (suspected) exposure to COVID-19
CPT/HCPCS: 71045; 80053; 82803; 83880; 84484; 85025; 93005; 93010; 94640; 94664; 99285-25; C9803; J7030; U0003

== ENCOUNTER 2023-02-26 17:31 | Inpatient (IN) | payer MEDICARE, OTHER ==
[~2023-02-26] VITALS: Ht 175.3 cm; Wt 130.4 kg
[~2023-02-26 17:31] MED LIST changes: -ARNUITY ELLIPT50 MCG IH; +DOXYCYCLINE HY100 MG PO; +FLUTICASONE PRO16 GM NAS; +OZEMPIC1 MG/0.71 SUB-Q; -OZEMPIC1 MG/0.75 SQ; +PROVENTIL HFA6.7 GM INH; +ROBITUSSIN COU237 M2 PO
[2023-02-26 17:48] LABS: BASOPHILS 0.3 % (0-2); HEMATOCRIT 45.3 % (35.0-50.0); HEMOGLOBIN 14.9 g/dL (12.0-18.0); LYMPHOCYTES 3.2 % (24-44); MCH 28.8 (27-36); MCHC 32.9 g/dl (30-36); MCV 87.5 fl (81-99); MONOCYTES 6.5 % (0-12); PLATELET COUNT 208 K/uL (140-440); RBC 5.18 M/ul (4.3-5.7); RDW 15.4 (10.5-15.0)
[2023-02-26 18:00] LABS: ALBUMIN 3.5 g/dL (3.4-5.0); ALBUMIN/GLOBULIN RATIO 0.83 (1.1-2.4); ANION GAP 17.9 (7-21); BILIRUBIN, TOTAL 0.8 ng/dL (0.2-1.0); BUN/CREATININE RATIO 22.53 (6.0-28.6); CALCIUM 9.7 mg/dL (8.5-10.1); CREATININE, SERUM 1.42 mg/dL (0.70-1.30); POTASSIUM 3.9 mmol/L (3.5-5.1); PROTEIN, TOTAL 7.7 g/dL (6.4-8.2)
[2023-02-26 18:14] LABS: LACTIC ACID, BLOOD 2.7 mmol/L (0.4-2.0)
[2023-02-26 18:27] LABS: BILIRUBIN, URINE NEGATIVE (negative); BLOOD/HGB, URINE LARGE (Negative); KETONE, URINE NEGATIVE (Negative); LEUK ESTERASE, URINE SMALL (negative); NITRITE, URINE POSITIVE (negative)
[2023-02-26 18:30] LABS: INFLUENZA B NAA NEGATIVE (NEGATIVE); RESPIRATORY SYNCYTIAL VIR NAA NEGATIVE (NEGATIVE)
[2023-02-26 18:33] LABS: WHITE BLOOD CELLS, URINE >50 /HPF (0-5)
[2023-02-26 18:34] LABS: BACTERIA, URINE 1+ /hpf (negative); CASTS, URINE NONE SEEN \\lpf; COLLECTION TYPE, URINE CLEAN CATCH; CRYSTALS, URINE NONE SEEN (0-1+)
[2023-02-26 18:37] LABS: EPITHELIAL CELLS, URINE 0 /lpf (0-1+)
[2023-02-26 18:38] LABS: REFLEX CULTURE, URINE Yes (No)
[2023-02-26 19:51] VITALS: BP 152/90
--- NOTE | 2023-02-26 20:12 | NUR ---
pt ARRIVES FROM ER WITH SURINDER MCCLURE. BEDSIDE REPORT RECEIVED. pt VOIDS IN URINAL AT SIDE OF BED, INCONTINENCE ON FLOOR. BACK IN BED. CPOX ON. OXYGEN TITRATED TO 2L, CPOX IN PLACE. ASSESSMENT COMPLETE. IVF INFUSING WNL. pt RATES PAIN 4/10 IN RIGHT SIDE AT RIBS, COMPLAINS OF CHILLS. PRN TYLENOL ADMINISTERED. CALL LIGHT IN REACH.
--- NOTE | 2023-02-26 21:31 | NUR ---
CALL LIGHT ANSWERED. pt DENIES PAIN. COMPLAINS OF OXYGEN IN NOSE IRRITATING HIM, FEELING LIKE HE CAN'T BREATHE THROUGH NOSE. TITRATED TO RA, OXYGEN REMOVED. SPO2 92% ON RA. PRN BENADRYL ADMINISTERED PER REQUEST. CPOX IN PLACE. ICE WATER REFILLED. CALL LIGHT WITHIN REACH.
--- NOTE | 2023-02-26 22:44 | NUR ---
CPOX ALARMING, pt SHIFTING IN BED, HR 117, SPO2 92% ON RA. NO DISTRESS NOTED.pt WITH EYES CLOSED.
--- NOTE | 2023-02-27 00:35 | NUR ---
PATIENTS CPOX ALARMING. PATIENTS OXYGEN SATURATIONS NOTED TO BE 87%. PATIENT PLACED ON 2L VIA NC. PATIENT DENIES ANY SOB. PATIENT STATED "I HAVE UNDIAGNOSED SLEEP APNEA". PATIENT DENIES WEARING A CPAP AT HOME. PATIENT DENIES ANY NEEDS. CALL LIGHT IN REACH.
[2023-02-27 02:20] VITALS: BP 108/77
--- NOTE | 2023-02-27 02:31 | NUR ---
pt UP TO SIDE OF BED FOR VOID, UNMEASURED VOID ON FLOOR, URINAL EMPTIED. SBA TO RESTROOM FOR BM, pt REPORTS ONLY GAS AND ADDITIONAL VOID. BACK IN BED. IVF INFUSING WNL. VSS. pt DENIES PAIN. CALL LIGHT IN REACH.
--- NOTE | 2023-02-27 04:43 | NUR ---
CHECKED ON pt. RESTING IN BED WITH EYES CLOSED. 4L OXYGEN BY NC IN PLACE, SPO2 95%, HR 92, CPOX ON. NO DISTRESS NOTED.
[2023-02-27 05:26] VITALS: BP 122/84
[2023-02-27 05:34] LABS: BASOPHILS 0.5 % (0-2); EOSINOPHILS 1.6 % (0-6); HEMATOCRIT 40.8 % (35.0-50.0); LYMPHOCYTES 6.2 % (24-44); MCH 28.2 (27-36); MCV 88.3 fl (81-99); MONOCYTES 11.3 % (0-12); NEUTROPHILS 80.4 % (39-80); PLATELET COUNT 183 K/uL (140-440); RBC 4.62 M/ul (4.3-5.7); RDW 15.5 (10.5-15.0)
[2023-02-27 05:48] LABS: ANION GAP 14.2 (7-21); BUN/CREATININE RATIO 22.95 (6.0-28.6); CALCIUM 8.8 mg/dL (8.5-10.1); CREATININE, SERUM 1.22 mg/dL (0.70-1.30); POTASSIUM 4.2 mmol/L (3.5-5.1)
--- NOTE | 2023-02-27 05:48 | NUR ---
INSTRUCTIONAL TECHNOLOGIST OUT OF ROOM AFTER LAB DRAW. VS COMPLETE, 4L OXYGEN BY NC IN PLACE WITH SLEEP TO MAINTAIN SATURATIONS WNL. CPOX ON. pt UP INDEPENDENTLY FOR VOID AT SIDE OF BED IN GRADUATED CYLINDER. pt BACK IN BED. CALL LIGHT AND PERSONAL SUPPLIES IN REACH. IVF INFUSING WNL.
--- NOTE | 2023-02-27 06:30 | EKG ---
[facility] [address] [facility] [place] [address] Signed Sinus tachycardia with occasional premature ventricular complexes Left axis deviation Abnormal ECG When compared with ECG of 30-NOV-2022 12:08, fusion complexes are no longer present Confirmed by KUNAL KAY MD ([id number]) on 02/27/2023 6:30:30 AM Electronically Signed By: KUNAL KAY 02/27/23 0630 PATIENT NAME: REGAN ENCARNACION KATLYNRACHEL Electrocardiogram DATE OF : 51 PHYSICIAN: KUNAL KAY REPORT #: [id number] REPORT IS CONFIDENTIAL AND NOT TO BE RELEASED WITHOUT AUTHORIZATION
--- NOTE | 2023-02-27 07:13 | NUR ---
Pt report received from RNs Dionte. Pt is awake in bed, denies needs at this time. Call light, personal belongings, and bedside table in reach.
--- NOTE | 2023-02-27 08:20 | NUR ---
In for medication administration per emar. Pt is in bed, hob elevated, watching television, breakfast tray in room, at bedside. Pt has no complaints or needs at this time. Call light in reach.
--- NOTE | 2023-02-27 09:37 | NUR ---
IN TO ANSWER CALL LIGHT. PT REPORTS HE NEEDS TO "GO TO THE BATHROOM". PT IV S/L. SBA WITH LINE AND TUBE MANAGEMENT. PT AMBULATED UNASSISTED AND WITHOUT ISSUES/COMPLAINTS TO TOILET. SBA WHILE PT GOT BACK IN BED. CALL LIGHT IN REACH.
[2023-02-27 09:58] VITALS: BP 127/80
--- NOTE | 2023-02-27 10:01 | NUR ---
PATIENT IN BED WATCHING TV AT THIS TIME. VITALS AND I&O'S CHARTED. PATIENT REQUESTING PAIN MEDS, RN NOTIFIED. CALL LIGHT IN REACH. NO FURTHER NEEDS AT THIS TIME.
--- NOTE | 2023-02-27 10:15 | NUR ---
PT RESTING IN BED, WATCHING TELEVISION. ADVISED PT THAT IT IS TOO SOON FOR MORE TYLENOL BUT THAT THERE IS MORPHINE ON HIS EMAR, WHICH HE DECLINED. HE STATES THAT HE ADJUSTED HIS PILLOWS WHICH IS HELPING AND STATES THE PAIN IS IN HIS RIGHT RIBS, WHICH IS CHRONIC. CALL LIGHT IN REACH. DENIES FURTHER NEEDS AT THIS TIME.
--- NOTE | 2023-02-27 10:40 | NUR ---
UR NOTE: MCG MEETS URINARY TRACT INFECTION (ISC) INPATIENT
--- NOTE | 2023-02-27 11:35 | NUR ---
PT APPEARED TO BE SLEEPING. DID NOT ROUSE TO MY KNOCK. DID NOT DISTURB. PRAYED FOR [employer]IAN[employer] OF HE[employer] AND ABIDING PEACE. LEFT GUIDEPOST WITH CONTACT CARD AND PRAYER CARD.
[2023-02-27] MEDS ORDERED: INVOKANA100 MG PO (12:27)
[2023-02-27] MEDS ORDERED: VITAMIN D350 MC3 PO (12:30)
[2023-02-27] MEDS ORDERED: CELEBREX200 MG PO (12:30)
[2023-02-27] MEDS ORDERED: ALLOPURINOL300 MG PO (12:31)
[2023-02-27] MEDS ORDERED: SEMGLEE (Y100 UNIT/2 SUB-Q (12:35)
[2023-02-27] MEDS ORDERED: VENTOLIN HFA18 GM INH ×2 (12:37→12:44)
[2023-02-27] MEDS ORDERED: SALINE NOSE SPR45 ML NAS (12:40)
--- NOTE | 2023-02-27 12:54 | NUR ---
IN FOR PAIN MED ADMINISTRATION PER EMAR. PT GIVEN 650MG TYLENOL FOR CHRONIC RIB PAIN. DENIES FURTHER NEEDS AT THIS TIME. RESTING IN BED, HOB ELEVATED, WATCHING TELEVISION. CALL LIGHT, BEDSIDE TABLE, PHONE, AND PERSONAL BELONGINGS IN REACH.
[2023-02-27 13:50] VITALS: BP 131/81
--- NOTE | 2023-02-27 13:52 | NUR ---
PATIENT UP TO BATHROOM AND BACK TO BED, IND. VITALS AND I&O'S CHARTED. ICE CHIPS GIVEN. CALL LIGHT IN REACH. NO FURTHER NEEDS AT THIS TIME.
--- NOTE | 2023-02-27 14:22 | NUR ---
UR NOTE: MCG URINARY TRACT INFECTION (ISC) MET GL DAY 2
--- NOTE | 2023-02-27 14:38 | NUR ---
IN TO SPEAK WITH PATIENT, PATIENT AWAKE WATCHING TV. PATIENT STATES HE LIVES AT HOME WITH HIS FAHAD. PATIENT STATES HE LIVES IN A ONE LEVEL HOME AND DOES NOT HAVE STAIRS. PATIENT DOES NOT REQUIRE AN AMBULATORY DME OF CHRONIC OXYGEN AT HOME. DISCUSSED THAT THE STAFF HAD NOTED THE PATIENTS DISCUSSING THE NEED TO WAKE THE PATIENT SEVERAL TIMES A NIGHT DUE TO APNEA. PATIENT STATES HE HAS NOT HAD A SLEEP STUDY IN THE PAST. PATIENT HAS NO FINANCIAL NEEDS AT THIS TIME. ALL DEMOGRAPHIC INFORMATION REVIEWED. PATIENT STATES HE DOES NOT FEEL HE WILL HAVE ANY NEEDS AT DISCHARGE. ADVISED CASE MANAGEMENT WILL CHECK IN WITH THE PATIENT DURING HIS STAY.
--- NOTE | 2023-02-27 17:05 | NUR ---
IN FOR INSULIN ADMINISTRATION PER EMAR. PT IS IN BED, HOB ELEVATED, TELEVISION ON. PT REPORTS INCREASING PAIN IN HIS RIGHT RIBS (CHRONIC) FOR WHICH HE WAS GIVEN A HOT PACK (TOWEL WRAPPED AROUND IT). FAMILY IN ROOM AT THIS TIME. CALL LIGHT IN REACH.
--- NOTE | 2023-02-27 18:09 | NUR ---
PT HAS BEEN IN BED FOR THIS SHIFT BUT HAS BEEN UP TO "PASS GAS" IN THE TOILET, AND VOID IN THE "URINAL" WITH SBA ONLY BUT HAS ALSO BEEN UP TO HAVE A BM INDEPENDENTLY WITH NO ISSUES. PT HAS BEEN ON ROOM AIR SATS AT 96%. PT HAS C/O PAIN IN HIS RIBS (CHRONIC), FOR WHICH HE WAS GIVEN TYLENOL AT 1300 HOURS, AND A HOT PACK AROUND 1700 HOURS (WRAPPED IN A TOWEL). FAMILY WAS IN WITH PT THIS MORNING AND AGAIN THIS EVENING. PT HAS EATEN 100% OF HIS MEALS AND HAS BEEN DRINKING WATER AND EATING ICE CHIPS. HE HAS REQUIRED 1 UNIT OF INSULIN AT LUNCH AND DINNER. PT USES CALL LIGHT APPROPRIATELY. VSS.
[2023-02-27 18:15] VITALS: BP 123/76
--- NOTE | 2023-02-27 19:38 | NUR ---
REPORT RECEIVED FROM SURINDER BARNES. pt RESTING IN BED, MOANING. COMPLAINS OF RIGHT RIB PAIN, STATES WARM PACK DID HELP. REQUESTING PAIN MEDICATION. PRN MEDICATIONS ADMINISTERED. BED ALARM SET. CALL LIGHT IN REACH.
[2023-02-27 20:39] VITALS: BP 133/84
--- NOTE | 2023-02-27 20:41 | NUR ---
PT CALLED, SBA TO BATHROOM TO VOID. BACK TO BED, COVERS PER PT CHOICE, VS COMPLETED, CPOX IN PLACE, BEDALARM IN PLACE WELL. CALL LIGHT WITHIN REACH.
--- NOTE | 2023-02-27 20:57 | NUR ---
pt UP TO RESTROOM WITH SBA WITH SURINDER HOFFMAN. BACK IN BED. VSS. ASSESSMENT COMPLETE. SPO2 WNL ON RA. CPOX ON. 4L OXYGEN BY NC APPLIED FOR SLEEP. pt DENIES PAIN AT THIS TIME. WARM PACK APPLIED TO RIGHT SIDE PER REQUEST. CALL LIGHT IN REACH. BED ALARM ON.
--- NOTE | 2023-02-27 21:30 | NUR ---
IN pt ROOM TO PROVIDE ADDITIONAL TISSUES. pt AWAKE, DROWSY, SPO2 93% WITH 4L OXYGEN BY NC IN PLACE. NO REQUESTS AT THIS TIME.
--- NOTE | 2023-02-27 23:21 | NUR ---
CALL LIGHT ANSWERED. SBA TO RESTROOM FOR VOID AND BACK TO BED. 4L OXYGEN BY NC BACK IN PLACE FOR SLEEP, CPOX ON. CALL LIGHT IN REACH. NEW WARM PACK PROVIDED FOR RIGHT SIDE. pt DENIES ADDITIONAL NEEDS.
--- NOTE | 2023-02-28 02:07 | NUR ---
CHECKED ON pt. RESTING IN BED WITH EYES CLOSED, SPO2 93% WITH 4L OXYGEN BY NC IN PLACE, HR 107. NO DISTRESS NOTED. BED ALARM ON FOR SAFETY.
--- NOTE | 2023-02-28 02:49 | NUR ---
CALL LIGHT ANSWERED. SBA TO RESTROOM FOR UNMEASURED VOID AND BACK TO BED. WARM BLANKET PROVIDED. CALL LIGHT IN REACH.
[2023-02-28 05:31] LABS: BASOPHILS 0.7 % (0-2); EOSINOPHILS 1.5 % (0-6); HEMATOCRIT 42.4 % (35.0-50.0); HEMOGLOBIN 13.9 g/dL (12.0-18.0); LYMPHOCYTES 2.8 % (24-44); MCH 28.7 (27-36); MCHC 32.7 g/dl (30-36); MCV 87.6 fl (81-99); MONOCYTES 10.2 % (0-12); NEUTROPHILS 84.8 % (39-80); PLATELET COUNT 175 K/uL (140-440); RBC 4.84 M/ul (4.3-5.7); RDW 15.6 (10.5-15.0)
[2023-02-28 05:34] VITALS: BP 139/86
[2023-02-28 05:38] LABS: ANION GAP 14.5 (7-21); BUN/CREATININE RATIO 19.62 (6.0-28.6); CALCIUM 8.9 mg/dL (8.5-10.1); CREATININE, SERUM 1.07 mg/dL (0.70-1.30); POTASSIUM 4.5 mmol/L (3.5-5.1)
--- NOTE | 2023-02-28 05:51 | NUR ---
IN ROOM TO CHECK ON pt LIGHTS ON. pt REPORTS PAIN 4/10, PRN PAIN MEDICATION ADMINISTERED. PRN ALLERGY MEDICATION ALSO ADMINISTERED. VSS. CALL LIGHT IN REACH.
--- NOTE | 2023-02-28 06:24 | NUR ---
CALL LIGHT ANSWERED, SBA TO RESTROOM FOR VOID AND BACK TO BED. WARM PACK PROVIDED FOR SIDE. pt DENIES ADDITIONAL NEEDS, DENIES PAIN. STATES "THE PILLS REALLY HELPED, I WAS ALMOST ASLEEP". CALL LIGHT IN REACH.
--- NOTE | 2023-02-28 07:12 | NUR ---
REPORT RECEIVED FROM SURINDER NAIDU. PT RESTING IN BED WITH EYES CLOSED. OXGYEN SATURATION OF 93% ON 4L O2 BY NC FOR SLEEP. HEART RATE OF 111. OCCATIONAL GROAN HEARD FROM PT, SHIFT CHANGE REPORT STATES THIS IS PTS BASELINE. RESPIRATIONS OTHERWISE EVEN AND UNLABORED. CALL LIGHT WITHIN REACH. BED RAILS UP. PT ALLOWED TO REST. THIS RN ASSUMING CARE OF PT WITH SURINDER BARNES.
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
--- NOTE | 2023-02-28 08:16 | NUR ---
DR HERNANDES UPDATED ON PT STATUS AND ASSESSMENT, PT REMAINS UP TO CHAIR, PT VERBALIZES UNDERSTANDING OF PLAN OF CARE AND STATES HIS QUESTIONS HAVE BEEN ANSWERED. BREAKFAST DELIVERED. INSULIN GIVEN. NO ADDITIONAL NEEDS AT THIS TIME. CALL LIGHT WITHIN REACH.
--- NOTE | 2023-02-28 09:12 | NUR ---
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 I PUT NOTE IN SACRISTRY REQUESTING GEOGRAPHIC INFORMATION SCIENTIST TO VISIT.
[2023-02-28 09:22] VITALS: BP 156/78
--- NOTE | 2023-02-28 09:48 | NUR ---
MED REC COMPLETE
--- NOTE | 2023-02-28 10:26 | NUR ---
HOURLY ROUNDING. PT STATES PAIN IS NOW 4/10 IN HIS RIBS AND IS REQUESTING PAIN MEDICATION, GIVEN. PT STATES NO OTHER NEEDS AT THIS TIME, CALL LIGHT WITHIN REACH. BED RAILS UP.
[2023-02-28] MEDS ORDERED: AMOX TR-K CLV1 EACH PO (10:50)
[2023-02-28] MEDS ORDERED: FLOMAX0.4 MG PO (11:00)
--- NOTE | 2023-02-28 11:30 | NUR ---
HOURLY ROUNDING. PT STATES PAIN IS "MAYBE AT A 1/10 IF THAT EVEN". PT IS DRESSED, IV IS DC'D. PT HAS UPDATED ON DISCHARGE PLAN. PT STATES HE WOULD NOT LIKE TO WAIT TO EAT LUCH HERE. PT UPDATED ON PLAN OF CARE FOR DISCHARGE, VERBALIZES UNDERSTANDING. PT STATES NO FURTHER NEEDS OR QUESTIONS AT THIS TIME, CALL LIGHT WITHIN REACH.
--- NOTE | 2023-02-28 11:42 | NUR ---
DISCHARGE NOTE. IV DC'D BY DOMENIC CARLOS. PT UP TO CHAIR, DRESSED. DISCHARGE EDUCATION COMPLETED, PT VERBALIZES UNDERSTANDING OF INSTRUCTIONS, MEDICATIONS AND FOLLOW-UP. STATES ALL QUESTIONS HAVE BEEN ANSWERED. PT AMBULATED TO WHEELCHAIR, WHEELED TO FRONT OF BUILDING.
== END 2023-02-28 11:50 | disposition home or self-care (01) | DRG 872 ==
LOC: ED 17:31 → MS 19:31
PROVIDERS: Emergency Medicine; ADMIT Family Medicine; ATTEND Family Medicine
DX: A41.9 Sepsis, unspecified organism (principal); N39.0 Urinary tract infection, site not specified; Z68.41 Body mass index [BMI] 40.0-44.9, adult; N40.0 Benign prostatic hyperplasia without lower urinary tract symptoms; E11.9 Type 2 diabetes mellitus without complications; M10.9 Gout, unspecified; F39 Unspecified mood [affective] disorder; E78.5 Hyperlipidemia, unspecified; G47.33 Obstructive sleep apnea (adult) (pediatric); F32.A Depression, unspecified; B96.20 Unspecified Escherichia coli [E. coli] as the cause of diseases classified elsewhere; F10.90 Alcohol use, unspecified, uncomplicated; E66.01 Morbid (severe) obesity due to excess calories; G89.29 Other chronic pain; Z98.890 Other specified postprocedural states; Z88.8 Allergy status to other drugs, medicaments and biological substances; Z95.5 Presence of coronary angioplasty implant and graft; Z85.038 Personal history of other malignant neoplasm of large intestine; Z91.030 Bee allergy status; Z79.899 Other long term (current) drug therapy; Z79.2 Long term (current) use of antibiotics; Z79.51 Long term (current) use of inhaled steroids; Z79.82 Long term (current) use of aspirin; Z79.891 Long term (current) use of opiate analgesic; Z79.84 Long term (current) use of oral hypoglycemic drugs; Z90.49 Acquired absence of other specified parts of digestive tract; Z11.52 Encounter for screening for COVID-19
CPT/HCPCS: 36415; 71045; 80048; 80053; 81001; 83036; 83605; 83880; 84484; 85025; 87040; 87088; 87186; 87502; 93005; 93010; 94760; 94762; 96365; 99285-25; A9270; C9803; J0696; J1650; J1815; J2270; J7030; U0002

== ENCOUNTER 2024-06-22 10:55 | Emergency (ER) | payer OTHER ==
[~2024-06-22] VITALS: Ht 175.3 cm; Wt 129.7 kg
[~2024-06-22 10:55] MED LIST changes: +ALLOPURINOL300 MG PO; +AMOX TR-K CLV1 EACH PO; +CELEBREX200 MG PO; +INVOKANA100 MG PO; +SALINE NOSE SPR45 ML NAS; +SEMGLEE (Y100 UNIT/2 SUB-Q; +VITAMIN D350 MC3 PO
[2024-06-22] MEDS ORDERED: ALBUTEROL SULFATE 8 GM HOME.PACK INH ONE (11:45)
[2024-06-22] MEDS ORDERED: INHALER, ASSIST DEVICES 1 EACH SPACER MISC ONE (11:45)
[2024-06-22 12:06] LABS: CORONAVIRUS COVID-19 AG NEGATIVE (NEGATIVE); INFLUENZA A AG NEGATIVE (NEGATIVE); INFLUENZA B AG NEGATIVE (NEGATIVE)
[2024-06-22] MEDS ORDERED: VENTOLIN HFA18 GM INH (12:17)
[2024-06-22 12:25] VITALS: BP 145/84
== END 2024-06-22 12:26 | disposition home or self-care (01) ==
LOC: ED 10:55
PROVIDERS: Emergency Medicine
DX: J20.8 Acute bronchitis due to other specified organisms (principal); E11.9 Type 2 diabetes mellitus without complications; E66.9 Obesity, unspecified; I10 Essential (primary) hypertension; Z95.5 Presence of coronary angioplasty implant and graft; Z85.038 Personal history of other malignant neoplasm of large intestine; Z91.030 Bee allergy status; Z79.4 Long term (current) use of insulin; Z79.84 Long term (current) use of oral hypoglycemic drugs; Z79.899 Other long term (current) drug therapy
CPT/HCPCS: 36415; 71045; 99284-25

== ENCOUNTER 2025-02-14 23:08 | Emergency (ER) | payer MEDICARE, OTHER ==
[~2025-02-14] VITALS: Ht 175.3 cm; Wt 108.0 kg
[2025-02-14] MEDS ORDERED: ALBUTEROL/IPRATROPIUM 3 ML NEB INH ONE (23:30)
[2025-02-14 23:34] LABS: BASOPHILS 0.7 % (0.2-1.2); EOSINOPHILS 6.1 % (0.8-7.0); LYMPHOCYTES 14.4 % (21.8-53.1); MCH 28.6 PG (25.7-32.2); MCHC 33.1 g/dL (32.3-36.5); MCV 86.3 fL (79.0-92.2); MONOCYTES 8.8 % (5.3-12.2); NEUTROPHILS 69.1 % (34.0-67.9); RBC 5.42 M/uL (4.63-6.08)
[2025-02-14] MEDS ORDERED: LACTATED RINGER'S 1,000 ML IV ONE (23:45)
[2025-02-14 23:56] LABS: ALT (SGPT) 16.0 U/L (14-59); AST (SGOT) 17.0 U/L (15-37); GLOMERULAR FILTRATION RATE,EST 75.0 mL/min (>60); PROTEIN, TOTAL 7.0 g/dL (6.4-8.2); UREA NITROGEN 23.0 mg/dL (7-18)
[2025-02-14] MEDS ORDERED: BENZONATATE100 MG PO (23:56)
[2025-02-14] MEDS ORDERED: EPIN0.3P IM (23:58)
[2025-02-14 23:59] LABS: LACTIC ACID, BLOOD 2.6 mmol/L (0.4-2.0)
[2025-02-15] MEDS ORDERED: CEPHALEXIN MONOHYDRATE 500 MG HOME.PACK PO ONE (00:15)
[2025-02-15 00:29] LABS: CORONAVIRUS COVID-19 AG NEGATIVE (NEGATIVE)
[2025-02-15] MEDS ORDERED: FAMOTIDINE 20 MG/ 2 ML VIAL IV ONE (00:30)
[2025-02-15] MEDS ORDERED: ALBUTEROL SULFATE 0.5% 2.5 MG/0.5 ML VIAL INH ONE (01:00)
[2025-02-15] MEDS ORDERED: MORPHINE SULFATE 4 MG/ML VIAL IV ONE (01:15)
[2025-02-15 02:39] LABS: BLOOD/HGB, URINE NEGATIVE (Negative); KETONE, URINE NEGATIVE (Negative); LEUK ESTERASE, URINE NEGATIVE (negative); NITRITE, URINE NEGATIVE (negative)
[2025-02-15] MEDS ORDERED: MENTHOL/CETYLPYRD CL 1 LOZ LOZENGE PO PRN (03:15)
[2025-02-15 04:18] VITALS: BP 120/80
--- NOTE | 2025-02-15 13:47 | EKG ---
[facility] [address] [facility] [place] [address] Signed Sinus tachycardia Left axis deviation Possible Lateral infarct , age undetermined Abnormal ECG When compared with ECG of 17-MAY-2023 10:23, No significant change was found Confirmed by Emre Ellison DO ([id number]) on 02/15/2025 1:47:00 PM Electronically Signed By: EMRE ELLISON DO 02/15/25 1347 PATIENT NAME: REGAN ENCARNACION JACQUELYN Electrocardiogram DATE OF : 51 PHYSICIAN: EMRE ELLISON DO REPORT #: [id number] REPORT IS CONFIDENTIAL AND NOT TO BE RELEASED WITHOUT AUTHORIZATION
== END 2025-02-15 04:18 | disposition home or self-care (01) ==
LOC: ED 23:08
PROVIDERS: Internal Medicine
DX: J06.9 Acute upper respiratory infection, unspecified (principal); B97.89 Other viral agents as the cause of diseases classified elsewhere; I27.20 Pulmonary hypertension, unspecified; G47.30 Sleep apnea, unspecified; E11.9 Type 2 diabetes mellitus without complications; I25.10 Atherosclerotic heart disease of native coronary artery without angina pectoris; E66.9 Obesity, unspecified; Z68.35 Body mass index [BMI] 35.0-35.9, adult; Z95.5 Presence of coronary angioplasty implant and graft; Z91.030 Bee allergy status; Z79.4 Long term (current) use of insulin; Z79.84 Long term (current) use of oral hypoglycemic drugs; Z79.899 Other long term (current) drug therapy
CPT/HCPCS: 36415; 71045; 71260; 80053; 81003; 83605; 83880; 84484; 85025; 85379; 87040; 93005; 93010; 94640; 94644; 96365; 96375; 99285-25; J0696; J2270; J2405; J2919; J7121; Q9967